=== PATIENT | female | born 1950 | race Caucasian/White ===

== ENCOUNTER 2017-02-27 17:26 | Inpatient (IN) | payer MEDICARE, MEDICAID ==
[2017-02-27 17:27] VITALS: BMI 42.4
[2017-02-27 18:09] LABS: BASO % 0.4 % (0.0-2.0); HEMATOCRIT 39.7 % (34.0-47.0); LYMPH % 15.5 % (20.0-40.0); MEAN CELL VOLUME 83.1 fL (81.0-99.0); MEAN CORPUSCULAR HEMOGLOBIN 26.3 pg (27.0-31.0); MEAN CORPUSCULAR HGB CONC 31.7 g/dL (33.0-37.0); MEAN PLATELET VOLUME 9.8 fL (7.2-11.7); MONO % 7.5 % (0.0-10.0); RED CELL DISTRIBUTION WIDTH 14.9 % (11.5-14.5)
--- NOTE | 2017-02-27 18:10 | C.PDOC ---
History Of Present Illness 66 y/o F c PMHx HTN, HLD, DM, CAD s/p CABG/stent, CVA 2011 (no residual deficit) , chronic back pain BIBEMS with altered mental status x 1 day. Patient did not show up for her pain doctor's visit today so son was notified. When he went to her home, he found her with altered mental status. She was speaking much less and appears drowsy so he called EMS. Son states that patient had a similar acute mental status change in 2011 and was diagnosed with CVA, found to have CAD and underwent CABG, after which she left the hospital without deficit. He states that at that time, she did complain of chest pain with her altered mental status. She currently denies any pain, shortness of breath, asymmetrical weakness. EKG transmitted to ED prior to patient arrival shows LBBB with no concordant ST changes. Son and daughter in law saw patient yesterday afternoon, approximately 26 hours ago. They note that the patient had a recent fall onto the shoulder which has since become back pain, which is why she has been seeing a pain physician. They state she has undergone multiple tests (MRI, etc). Time Seen by Provider: 02/27/17 17:41 Chief Complaint (Nursing): Altered Mental Status History Per: Family (Son) History/Exam Limitations: None Onset/Duration Of Symptoms: Unknown Past Medical History Reviewed: Historical Data, Nursing Documentation, Vital Signs Vital Signs: Last Vital Signs Temp 99.0 F 02/27/17 17:41 Pulse 102 H 02/27/17 17:41 Resp 18 02/27/17 17:41 BP 112/79 02/27/17 17:41 Pulse Ox 93 L 02/27/17 18:41 - Medical History PMH: Arthritis, CHF, COPD, HTN, Hypercholesterolemia, Sleep Apnea - [facility] Procedures TONSILLECTOMY (01/14/98) Family History: States: No Known Family Hx - Social History Hx Alcohol Use: No Hx Substance Use: No - Immunization History Hx Tetanus Toxoid Vaccination: No Hx Influenza Vaccination: No Hx Pneumococcal Vaccination: No Review Of Systems Except As Marked, All Systems Reviewed And Found Negative. Constitutional: Negative for: Fever Eyes: Negative for: Vision Change ENT: Negative for: Throat Pain Cardiovascular: Negative for: Chest Pain Respiratory: Negative for: Shortness of Breath Gastrointestinal: Negative for: Vomiting Genitourinary: Negative for: Dysuria Musculoskeletal: Positive for: Back Pain Skin: Negative for: Rash Neurological: Positive for: Altered Mental Status. Negative for: Weakness Physical Exam - Physical Exam Additional Physical Exam Comments: Constitutional: No acute distress. (+) Appears drowsy, responds to verbal stimuli. Head: Normocephalic. Atraumatic. Eyes: PERRL. ENT: Moist mucous membranes. Neck: Supple. Cardiovascular: Regular rate. Radial pulses 2+ bilaterally. Chest: No tenderness. Respiratory: Clear to auscultation bilaterally. GI: Soft. Nontender. Nondistended. Back: No CVA tenderness. Musculoskeletal: No tenderness or swelling of extremities. Skin: No rash. Neurologic: Alert, no focal deficit. (+) Motor strength equal bilaterally. Sensation to light touch intact bilaterally. Oriented x 3. ED Course And Treatment - Laboratory Results Result Diagrams: 02/27/17 18:05 02/27/17 19:41 O2 Sat by Pulse Oximetry: 93 (RA) Pulse Ox Interpretation: Normal - CT Scan/US CT - Head Other Rad Studies (CT/US): Read By Radiologist, Radiology Report Reviewed CT/US Interpretation: PROCEDURE: CT HEAD WITHOUT CONTRAST. HISTORY: altered mental status. COMPARISON: None available. TECHNIQUE: Axial computed tomography images were obtained through the head/brain without intravenous contrast. Radiation dose: Total exam DLP = 1076 mGy-cm. This CT exam was performed using one or more of the following dose reduction techniques: Automated exposure control, adjustment of the mA and/or kV according to patient size, and/or use of iterative reconstruction technique. FINDINGS: HEMORRHAGE: No intracranial hemorrhage. BRAIN: No evidence of mass effect or midline shift. Small it hypodensity at the left coronal radiata may represent old infarct versus dilated perivascular space. Mild atrophy and mild white matter changes suggestive but nonspecific for chronic microvascular ischemic disease. VENTRICLES: Unremarkable. No hydrocephalus. CALVARIUM: Unremarkable. PARANASAL SINUSES: Unremarkable as visualized. No significant inflammatory changes. MASTOID AIR CELLS: Unremarkable as visualized. No inflammatory changes. OTHER FINDINGS: Dilated sella turcica noted. IMPRESSION: No evidence of acute intracranial hemorrhage intracranial collection mass effect or midline shift. Mild atrophy and presumed mild chronic microvascular ischemic disease. Enlarged sella turcica. Medical Decision Making Medical Decision Making: IMPRESSION: Altered mental status, differential currently includes CVA, cardiac ischemia, sepsis, dehydration. Will check CT Head, cardiac enzymes, urine, CXR, labs. EKG does not meet criteria to activate CODE HEART at [facility] Last time well over 24 hours ago, does not meet criteria to activate CODE STROKE. EKG done on arrival, Sinus rhythm, 100 bpm, LBBB, no concordant ST changes. 1 previous EKG on record, also shows LBBB. PLAN: * CT - Head * CXR * CBC * CMP * Troponin * ABG * Urinalysis * Albuterol IH * Aspirin PO * Novolin IV * Sodium Carbonate IVP * Sodium Chloride IV Repeat Potassium not remarkable, hyperkalemia medications not given. Dr. Adrian accepts patient for admission for altered mental status and dehydration. Consult placed for Dr. Keller Neurology. Disposition - Disposition Disposition: HOSPITALIZED Disposition Time: 20:15 Condition: GUARDED - Clinical Impression Clinical Impression: Altered mental status, Dehydration - Scribe Statement The provider has reviewed the documentation as recorded by the Carmenibe Agnes Chawla Provider Attestation: All medical record entries made by the Carmenibdani were at my direction and personally dictated by me. I have reviewed the chart and agree that the record accurately reflects my personal performance of the history, physical exam, medical decision making, and the department course for this patient. I have also personally directed, reviewed, and agree with the discharge instructions and disposition.
[2017-02-27 18:17] LABS: INR 1.1
[2017-02-27 18:20] LABS: CHLORIDE 103 mmol/L (98-107)
[2017-02-27 18:21] LABS: SODIUM 138 mmol/L (132-148)
[2017-02-27 18:23] LABS: ALB/GLOB RATIO 1.1 (1.0-2.1); ALKALINE PHOSPHATASE 82 U/L (38-126); AST/SGOT 43 U/L (14-36); BILIRUBIN,TOTAL 1.2 mg/dL (0.2-1.3); CARBON DIOXIDE 21 mmol/L (22-30); GFR AFRICAN-AMERICAN 30; TOTAL PROTEIN 8.1 g/dL (6.3-8.3)
[2017-02-27 18:24] LABS: ALT/SGPT 27 U/L (9-52); BLOOD UREA NITROGEN 55 mg/dL (7-17); CALCIUM 10.3 mg/dl (8.6-10.4); GLUCOSE,RANDOM 262 mg/dL (65-105)
[2017-02-27 18:28] LABS: POTASSIUM 6.6 mmol/L (3.6-5.2)
[2017-02-27] MEDS ORDERED: Sodium Bicarbonate (8.4%) 50 Meq Syringe IVP ONE (18:29)
[2017-02-27] MEDS ORDERED: Albuterol-Ipratrop 3 mg / 0.5 (3 ml) UD IH STA (18:29)
[2017-02-27] MEDS ORDERED: Sodium Chloride 0.9% 1,000 ML IV STA (18:30)
[2017-02-27] MEDS ORDERED: (Novolin R) Insulin Human Regular 100 units/ml vial IV ONE (18:30)
--- NOTE | 2017-02-27 18:31 | CT ---
PROCEDURE: CT HEAD WITHOUT CONTRAST. HISTORY: altered mental status COMPARISON: None available. TECHNIQUE: Axial computed tomography images were obtained through the head/brain without intravenous contrast. Radiation dose: Total exam DLP = 1076 mGy-cm. This CT exam was performed using one or more of the following dose reduction techniques: Automated exposure control, adjustment of the mA and/or kV according to patient size, and/or use of iterative reconstruction technique. FINDINGS: HEMORRHAGE: No intracranial hemorrhage. BRAIN: No evidence of mass effect or midline shift. Small it hypodensity at the left coronal radiata may represent old infarct versus dilated perivascular space. Mild atrophy and mild white matter changes suggestive but nonspecific for chronic microvascular ischemic disease. VENTRICLES: Unremarkable. No hydrocephalus. CALVARIUM: Unremarkable. PARANASAL SINUSES: Unremarkable as visualized. No significant inflammatory changes. MASTOID AIR CELLS: Unremarkable as visualized. No inflammatory changes. OTHER FINDINGS: Dilated sella turcica noted IMPRESSION: No evidence of acute intracranial hemorrhage intracranial collection mass effect or midline shift. Mild atrophy and presumed mild chronic microvascular ischemic disease. Enlarged sella turcica.
--- NOTE | 2017-02-27 18:47 | RAD ---
HISTORY: r/o PNA COMPARISON: None available. TECHNIQUE: Chest, one view. FINDINGS: Examination limited by habitus, hypoinflation, and patient obliquity. LUNGS: Right hilar prominence. No focal consolidation. Please note that chest x-ray has limited sensitivity for the detection of pulmonary masses. PLEURA: No significant pleural effusion identified. No definite pneumothorax . CARDIOVASCULAR: Median sternotomy wires with evidence of CABG. Cardiomegaly may be exaggerated by hypo inflation and portable technique. OSSEOUS STRUCTURES: Degenerative changes. VISUALIZED UPPER ABDOMEN: Unremarkable. OTHER FINDINGS: None. IMPRESSION: Hypoinflation. Cardiomegaly which may be exaggerated by hypoinflation and portable technique. Right hilar prominence.
[2017-02-27 19:08] LABS: ABG ALLEN TEST POS; DRAW SITE RBA
[2017-02-27] MEDS ORDERED: Albuterol-Ipratrop 3 mg / 0.5 (3 ml) UD ONE ×2 (20:12→20:13)
[2017-02-27 20:55] LABS: RBC URINE 10 /hpf (0-3); URINE BACTERIA RARE (<OCC); URINE BILIRUBIN NEGATIVE (NEGATIVE); URINE BLOOD 1+ (NEGATIVE); URINE COLOR Yellow (YELLOW); URINE GLUCOSE (UA) NORMAL (Normal); URINE KETONE NEGATIVE (NEGATIVE); URINE LEUKOCYTE ESTERASE NEG Leu/uL (Negative); URINE PROTEIN NEGATIVE (NEGATIVE); URINE UROBILINOGEN NORMAL mg/dL (0.2-1.0); WBC URINE < 1 /hpf (0-5)
[2017-02-28 06:44] LABS: BASO % 0.3 % (0.0-2.0); EOS # 0.2 K/uL (0.0-0.7); EOS % 2.5 % (0.0-4.0); HEMATOCRIT 34.6 % (34.0-47.0); LYMPH # 2.1 K/uL (1.0-4.3); LYMPH % 24.5 % (20.0-40.0); MEAN CORPUSCULAR HEMOGLOBIN 27.4 pg (27.0-31.0); MEAN CORPUSCULAR HGB CONC 33.3 g/dL (33.0-37.0); MEAN PLATELET VOLUME 8.7 fL (7.2-11.7); MONO # 0.8 K/uL (0.0-0.8); RED CELL DISTRIBUTION WIDTH 15.1 % (11.5-14.5); WHITE BLOOD COUNT 8.5 K/uL (4.8-10.8)
[2017-02-28 06:59] LABS: BILIRUBIN,TOTAL 0.5 mg/dL (0.2-1.3); CALCIUM 9.5 mg/dl (8.6-10.4); POTASSIUM 4.8 mmol/L (3.6-5.2); TOTAL PROTEIN 6.2 g/dL (6.3-8.3)
[2017-02-28] MEDS: Sodium Chloride 0.45% 1,000 ML IV SCH ×2 (07:12→22:10)
[2017-02-28 07:15] LABS: ALB/GLOB RATIO 1.1 (1.0-2.1)
[2017-02-28 07:31] LABS: FREE T4 1.2 ng/dL (0.78-2.19)
[2017-02-28] MEDS ORDERED: Propofol 10 mg/ml Inj (20 ML) ONE (07:47)
[2017-02-28 08:10] LABS: THYROID STIMULATING HORMONE 0.18 mIU/L (0.46-4.68)
--- NOTE | 2017-02-28 10:08 | MRI ---
PROCEDURE: MRI BRAIN WITHOUT CONTRAST HISTORY: cva COMPARISON: Head CT without contrast 02/27/2017 TECHNIQUE: Multiplanar, multisequence MR images of the brain were obtained without intravenous contrast enhancement. FINDINGS: HEMORRHAGE: None DWI: No evidence of an acute or early subacute infarction. BRAIN PARENCHYMA: Limited dIffuse cerebral atrophy and chronic microangiopathy are reiterated the current examination. Chronic lacune is seen the left basal ganglia posteriorly as well as at the superior left periventricular white matter. There is no mass effect or suspicious extra-axial fluid collection identified. The sella appears empty but also appears somewhat expanded and may reflect a sella/suprasellar arachnoid cyst. VENTRICLES: Unremarkable. No hydrocephalus. CRANIUM: Unremarkable. ORBITS: Grossly unremarkable. PARANASAL SINUSES/MASTOIDS: A small right maxillary sinus polyp or cyst is appreciated PE VASCULAR SYSTEM: Skull base flow voids intact. OTHER FINDINGS: None. IMPRESSION: 1. No definite acute intracranial findings including brain infarction, as described above. 2. 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 3. Age related neuro degenerate changes are reiterated the current examination as compared to prior head CT 02/27/2017. 4. Left-sided chronic lacunes are identified as discussed above.
[2017-02-28] MEDS ORDERED: (Novolin R) Insulin Human Regular 100 units/ml vial ONE ×2 (10:17→12:36)
[2017-02-28] MEDS ORDERED: Albuterol-Ipratrop 3 mg / 0.5 (3 ml) UD ONE (10:19)
[2017-02-28] MEDS: (Novolog) Insulin Aspart, Recombinant 100 u/ml 10 ml vial SC SCH ×4 (10:26→21:43)
[2017-02-28] MEDS: Albuterol-Ipratrop 3 mg / 0.5 (3 ml) UD INH SCH ×2 (10:30→20:03)
--- NOTE | 2017-02-28 10:58 | CP.PCM.HP ---
History of Present Illness - History of Present Illness History of Present Illness: pt was found at home by her son with ams brought to er now well normal response Present on Admission - Present on Admission Any Indicators Present on Admission: Yes Review of Systems - Review of Systems Systems not reviewed;Unavailable: Acuity of Condition - Constitutional Constitutional: Fatigue - EENT Eyes: As Per HPI Ears: As Per HPI Nose/Mouth/Throat: As Per HPI - Breasts Breasts: As Per HPI - Cardiovascular Cardiovascular: Dyspnea on Exertion - Respiratory Respiratory: Dyspnea on Exertion - Gastrointestinal Gastrointestinal: Heartburn - Genitourinary Genitourinary: As Per HPI - Reproductive: Female Reproductive:Female: As Per HPI - Menstruation Menstruation: Post Menopausal - Musculoskeletal Musculoskeletal: Back Pain - Neurological Additional comments: was ams now normal - Psychiatric Psychiatric: As Per HPI - Endocrine Endocrine: Polydipsia, Polyphagia, Polyuria - Hematologic/Lymphatic Hematologic: As Per HPI Past Patient History - Past Social History Smoking Status: Never Smoked Chewing Tobacco Use: No Cigar Use: No Alcohol: None Home Situation {Lives}: Alone - CARDIAC Hx Cardiac Disorders: Yes Hx Congestive Heart Failure: Yes Hx Hypercholesterolemia: Yes Hx Hypertension: Yes Other/Comment: s/pCABGE Ysago - PULMONARY Hx Chronic Obstructive Pulmonary Disease (COPD): Yes Hx Sleep Apnea: Yes - NEUROLOGICAL HX Cerebrovascular Accident: Yes - ENDOCRINE/METABOLIC Hx Diabetes Mellitus Type 2: Yes Other/Comment: "PITUITARY ISSUES" - HEMATOLOGICAL/ONCOLOGICAL Hx Blood Transfusions: No Hx Blood Transfusion Reaction: No - MUSCULOSKELETAL/RHEUMATOLOGICAL Hx Arthritis: Yes - PSYCHIATRIC Hx Substance Use: No - SURGICAL HISTORY Hx Surgeries: Yes Hx Cardiac Catheterization: Yes Hx Gastric Bypass Surgery: Yes Hx Herniorrhaphy: Yes Hx Open Heart Surgery: Yes (QUAD BYPASS) Other/Comment: PITUITARY SX - ANESTHESIA Hx Anesthesia: Yes Hx Anesthesia Reactions: Yes (ITCHY) Hx Malignant Hyperthermia: No Meds Allergies/Adverse Reactions: Allergies Allergy/AdvReac Type Severity Reaction Status Date / Time Sulfa (Sulfonamide Allergy Intermediate RASH Verified 02/27/17 17:57 Antibiotics) Physical Exam - Constitutional Appears: Non-toxic - Head Exam Head Exam: NORMAL INSPECTION - Eye Exam Eye Exam: Normal appearance Pupil Exam: NORMAL ACCOMODATION - ENT Exam ENT Exam: Mucous Membranes Moist - Neck Exam Neck exam: Positive for: Full Rom - Respiratory Exam Respiratory Exam: Decreased Breath Sounds - Cardiovascular Exam Cardiovascular Exam: REGULAR RHYTHM - GI/Abdominal Exam GI & Abdominal Exam: Normal Bowel Sounds - Rectal Exam Rectal Exam: Hemorrhoids - Exam Exam: NORMAL INSPECTION - Extremities Exam Extremities exam: Positive for: pedal edema - Back Exam Back exam: CVA tenderness (R) - Neurological Exam Neurological exam: Oriented x3 - Psychiatric Exam Psychiatric exam: Normal Affect - Skin Skin Exam: Normal Color Results - Vital Signs Recent Vital Signs: Last Vital Signs Temp 99.0 F 02/27/17 17:41 Pulse 97 H 02/28/17 09:07 Resp 12 02/28/17 09:07 BP 115/72 02/28/17 09:07 Pulse Ox 98 02/28/17 09:07 - Labs Result Diagrams: 02/28/17 06:41 02/28/17 06:41 Labs: Laboratory Results - last 24 hr 02/28/17 02/28/17 02/28/17 06:41 06:41 06:41 WBC 8.5 RBC 4.22 Hgb 11.5 Hct 34.6 MCV 82.0 MCH 27.4 MCHC 33.3 RDW 15.1 H Plt Count 266 MPV 8.7 Neut % (Auto) 63.7 Lymph % (Auto) 24.5 [place] % (Auto) 9.0 Eos % (Auto) 2.5 Baso % (Auto) 0.3 Neut # 5.4 Lymph # 2.1 [place] # 0.8 Eos # 0.2 Baso # 0.0 Sodium 141 Potassium 4.8 Chloride 110 H Carbon Dioxide 20 L Anion Gap 16 BUN 55 H Creatinine 1.8 H Est GFR ( Amer) 34 Est GFR (Non-Af Amer) 28 POC Glucose (mg/dL) Random Glucose 128 H Calcium 9.5 Total Bilirubin 0.5 AST 20 ALT 23 Alkaline Phosphatase 66 Total Protein 6.2 L Albumin 3.3 L D Globulin 2.9 Albumin/Globulin Ratio 1.1 Free T4 1.20 TSH 3rd Generation 0.18 L 02/28/17 07:57 WBC RBC Hgb Hct MCV MCH MCHC RDW Plt Count MPV Neut % (Auto) Lymph % (Auto) [place] % (Auto) Eos % (Auto) Baso % (Auto) Neut # Lymph # [place] # Eos # Baso # Sodium Potassium Chloride Carbon Dioxide Anion Gap BUN Creatinine Est GFR ( Amer) Est GFR (Non-Af Amer) POC Glucose (mg/dL) 168 H Random Glucose Calcium Total Bilirubin AST ALT Alkaline Phosphatase Total Protein Albumin Globulin Albumin/Globulin Ratio Free T4 TSH 3rd Generation Assessment & Plan - Assessment and Plan (Free Text) Assessment: ac AMS IMPROVED DM HTN OBESITY S/P CABAGE 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
--- NOTE | 2017-02-28 11:37 | CARD ---
APPROVED REPORT EKG Measurement Heart [id number] <Conclusion> Sinus tachycardia Left axis deviation Nonspecific intraventricular block Inferior infarct, age undetermined Anterolateral infarct, age undetermined Abnormal ECG
[2017-02-28] MEDS: Enoxaparin 30 mg Syringe SC SCH (12:41)
--- NOTE | 2017-02-28 18:38 | CON ---
NEUROLOGY CONSULT DATE: 02/28/2017 CHIEF COMPLAINT: Altered mental status. HISTORY OF PRESENT ILLNESS: This is a 66-year-old woman with past medical history of hypertension, hyperlipidemia, diabetes type 2 uncontrolled, coronary artery disease status post CABG and stent, history of CVA in 2011 with no residual deficit, chronic back pain, on Lyrica and had history of epidural shots, history of sleep apnea with overweight, came in for altered mental status, found to be drowsy and slightly confused. Currently, she is at her baseline at this time with just some mild confusion at times. She follows simple commands, tells her history and articulates well. No speech difficulties, no focal weakness of the extremities, has evidence of diabetic neuropathy on neuro exam. MRI of the brain showed no acute intracranial abnormalities, just old left chronic lacunar infarcts. She came in with initially hyperkalemia with potassium 6.6, now it has normalized to 4.8 and has some mild renal insufficiency. Her blood sugar is currently high, which is 238. REVIEW OF SYSTEMS: A 14-point review of systems is negative except as in HPI. PAST MEDICAL HISTORY: History of hypertension, dyslipidemia, type 2 diabetes, coronary artery disease, status post CABG with stents, CVA in 2012, no residual deficits, chronic back pain, history of COPD, and sleep apnea. MEDICATIONS: Reviewed by nurse reconciliation sheet. SOCIAL HISTORY: No illicit drug use, smoking or EtOH abuse. FAMILY HISTORY: Noncontributory. ALLERGIES: SULFONAMIDES. PHYSICAL EXAMINATION: VITAL SIGNS: Temperature afebrile, pulse rate 97, blood pressure 100/67, respiratory rate of 12, oxygen saturation 99% via room air. GENERAL: The patient is sitting in bed, in no acute distress. HEENT: Atraumatic, normocephalic. PERRLA. Extraocular muscles are intact. NECK: Supple. No JVD. No adenopathy noted. Has Mallampati score of at least 4. HEART: S1 and S2. Normal rate and rhythm. No murmur, rubs, or gallops. ABDOMEN: Soft, nontender, nondistended. Bowel sounds are present. EXTREMITIES: No clubbing. No cyanosis. Peripheral pulses are 2+ felt bilaterally. NEUROLOGIC: The patient is alert and oriented to person, place, month, and year. Speech is fluent without any errors. Cranial nerves II through XII are intact. Has poor attention span. Slow thought process. Motor exam: Moves all extremities equally. No pronator drift seen. Sensory exam: Decreased light touch, pinprick up to the calves bilaterally. DTRs are 2+ throughout, 1 at the knees and ankles. Coordination: [id number] intact. Gait is deferred for now. LABORATORY DATA: Sodium is 141, potassium 4.8, chloride 110, carbon dioxide of 20, BUN 55, creatinine 1.8, random glucose 128. ASSESSMENT AND PLAN: This is a 66-year-old woman with history of hypertension, type 2 diabetes mellitus, sleep apnea, chronic obstructive pulmonary disease, obesity, coronary artery disease, status post coronary artery bypass graft and stent, history of cerebrovascular accident in 2011 with no residual deficit, hyperlipidemia, chronic back pain on Lyrica, who presented with confusion and drowsiness and was consulted for altered mental status. MRI of the brain showed no acute intracranial abnormalities, just some chronic lacunar infarcts in the left middle cerebral artery territory. She came in with hyperkalemia and low diastolic blood pressures and renal insufficiency. Altered mental status is secondary to underlying transient confusional state with metabolic derangements, superimposed underlying sleep apnea which can make her very drowsy. At this time, recommend: 1. Monitor electrolytes and correct accordingly. 2. Keep her blood sugars between 140 to 180 and advise a diabetic diet. 3. Aspirin 81 mg and Lipitor 20 mg p.o. daily for stroke prevention. 4. Get a Pulmonary consult with regards to history of sleep apnea since she is noncompliant with her CPAP machine and continue with current present medical management. Thank you for this consult. She is neurologically stable. Rodolfo Keller MD
[2017-03-01] MEDS: Albuterol-Ipratrop 3 mg / 0.5 (3 ml) UD INH SCH ×4 (01:11→19:13)
[2017-03-01] MEDS: (Novolog) Insulin Aspart, Recombinant 100 u/ml 10 ml vial SC SCH ×4 (08:25→21:27)
[2017-03-01] MEDS: Enoxaparin 30 mg Syringe SC SCH (09:42)
[2017-03-01] MEDS: Sodium Chloride 0.45% 1,000 ML IV SCH ×2 (12:29→16:55)
--- NOTE | 2017-03-01 17:10 | CP.PCM.PN ---
Subjective - Date & Time of Evaluation Date of Evaluation: 03/01/17 Time of Evaluation: 17:06 - Subjective Subjective: pt c/o of severe back pain unable to ambulate Objective - Vital Signs/Intake and Output Vital Signs (last 24 hours): Temp Pulse Resp BP Pulse Ox 97.9 F 92 H 20 107/69 96 03/01/17 15:10 03/01/17 15:10 03/01/17 15:10 03/01/17 15:10 03/01/17 15:10 Intake and Output: 03/01/17 03/01/17 06:59 18:59 Intake Total 200 880 Balance 200 880 - Medications Medications: Current Medications Albuterol/Ipratropium (Duoneb 3 Mg/0.5 Mg (3 Ml) Ud) 3 ml INH RQ6 [facility] Last Admin: 03/01/17 13:14 Dose: 3 ml Aspirin (Ecotrin) 325 mg PO DAILY [facility] Enoxaparin Sodium (Lovenox) 30 mg SC DAILY [facility] Last Admin: 03/01/17 09:42 Dose: 30 mg Famotidine (Pepcid) 20 mg PO DAILY [facility] Last Admin: 03/01/17 09:42 Dose: 20 mg Hydrocortisone (Anusol-Hc) 25 mg MS BID [facility] Last Admin: 03/01/17 09:42 Dose: 25 mg Insulin Aspart (Novolog) 0 unit SC ACHS [facility] PRN Reason: Protocol Last Admin: 03/01/17 12:28 Dose: 2 unit Tramadol HCl (Ultram) 50 mg PO TID [facility] Last Admin: 03/01/17 14:27 Dose: 50 mg - Labs Labs: 02/28/17 06:41 02/28/17 06:41 PT 12.7 SECONDS (9.7-12.2) H 02/27/17 18:05 INR 1.1 02/27/17 18:05 APTT 28 SECONDS (21-34) 02/27/17 18:05 - Constitutional Appears: Non-toxic - Head Exam Head Exam: NORMAL INSPECTION - Eye Exam Eye Exam: Normal appearance Pupil Exam: NORMAL ACCOMODATION - ENT Exam ENT Exam: Mucous Membranes Moist - Neck Exam Neck Exam: Full ROM - Respiratory Exam Respiratory Exam: NORMAL BREATHING PATTERN - Cardiovascular Exam Cardiovascular Exam: REGULAR RHYTHM - GI/Abdominal Exam GI & Abdominal Exam: Normal Bowel Sounds - Rectal Exam Rectal Exam: NORMAL INSPECTION - Exam Exam: NORMAL INSPECTION External exam: NORMAL EXTERNAL EXAM - Extremities Exam Extremities Exam: Full ROM - Back Exam Back Exam: CVA tenderness (L), NORMAL INSPECTION - Neurological Exam Neurological Exam: Alert, Oriented x3 - Psychiatric Exam Psychiatric exam: Normal Mood - Skin Skin Exam: Normal Color Assessment and Plan - Assessment and Plan (Free Text) Assessment: s/p ams s/p old cva no residual back pain difficulty ambulatin htn controled Plan: as per orders
--- NOTE | 2017-03-01 17:12 | CP.PCM.CON ---
History of Present Illness - History of Present Illness History of Present Illness: Pain Management Consult Patient is 66F with PMHx of HTN, hyperlipidemia, CAD s/p CABGx4 and stents, CVA (2011), WILFRID and chronic back pain initially admitted with altered mental status. Currently patient at baseline mental status AAOX3. As per patient's son she had a fall 3 months ago which left her with cervical and lumbar pain. Subsequently received an epidural injection but did not have any pain relieve. She reports pain as sharp in the lower back, constant, non radiating and 10/10 intensity. Currently she is receiving tramadol which effectively alleviates her pain however she reports being very sleepy and tired. Patient's son expressed wanting to switch pain management doctor given the long commute to the clinic. Her home medication Lyrica only slight decreases her pain. Recommendations: Case discussed with Pain management Dr. Uribe -Switch tramadol to Ultracet Q8H PRN given her sleepiness -For discharge planning patient may go back on home medication Lyrica 75mg BID and can be titrate up to 100mg Q8H -Patient may call [facility] pain management clinic for further care Past Patient History - Past Medical History & Family History Past Medical History?: Yes - Past Social History Smoking Status: Never Smoked - CARDIAC Hx Cardiac Disorders: Yes (CAD, CABG) Hx Congestive Heart Failure: Yes Hx Hypercholesterolemia: Yes Hx Hypertension: Yes - PULMONARY Hx Chronic Obstructive Pulmonary Disease (COPD): Yes - NEUROLOGICAL HX Cerebrovascular Accident: Yes - ENDOCRINE/METABOLIC Hx Diabetes Mellitus Type 2: Yes - HEMATOLOGICAL/ONCOLOGICAL Hx Blood Transfusions: No Hx Blood Transfusion Reaction: No - MUSCULOSKELETAL/RHEUMATOLOGICAL Hx Arthritis: Yes - GASTROINTESTINAL Other/Comment: Gastric sleeve - PSYCHIATRIC Hx Substance Use: No - SURGICAL HISTORY Hx Surgeries: Yes Hx Cardiac Catheterization: Yes Hx Gastric Bypass Surgery: Yes (Gastric sleeve) Hx Herniorrhaphy: Yes Hx Open Heart Surgery: Yes (QUAD BYPASS) Other/Comment: PITUITARY SX - ANESTHESIA Hx Anesthesia: Yes Hx Anesthesia Reactions: Yes (ITCHiness) Hx Malignant Hyperthermia: No Meds Allergies/Adverse Reactions: Allergies Allergy/AdvReac Type Severity Reaction Status Date / Time Sulfa (Sulfonamide Allergy Intermediate RASH Verified 02/27/17 17:57 Antibiotics) - Medications Medications: Current Medications Albuterol/Ipratropium (Duoneb 3 Mg/0.5 Mg (3 Ml) Ud) 3 ml INH RQ6 [facility] Last Admin: 03/01/17 13:14 Dose: 3 ml Enoxaparin Sodium (Lovenox) 30 mg SC DAILY [facility] Last Admin: 03/01/17 09:42 Dose: 30 mg Famotidine (Pepcid) 20 mg PO DAILY [facility] Last Admin: 03/01/17 09:42 Dose: 20 mg Hydrocortisone (Anusol-Hc) 25 mg NC BID [facility] Last Admin: 03/01/17 09:42 Dose: 25 mg Insulin Aspart (Novolog) 0 unit SC ACHS [facility] PRN Reason: Protocol Last Admin: 03/01/17 12:28 Dose: 2 unit Tramadol HCl (Ultram) 50 mg PO TID [facility] Last Admin: 03/01/17 14:27 Dose: 50 mg Results - Vital Signs Recent Vital Signs: Last Vital Signs Temp 97.9 F 03/01/17 15:10 Pulse 92 H 03/01/17 15:10 Resp 20 03/01/17 15:10 BP 107/69 03/01/17 15:10 Pulse Ox 96 03/01/17 15:10 - Labs Result Diagrams: 02/28/17 06:41 02/28/17 06:41 Labs: Laboratory Results - last 24 hr 02/28/17 02/28/17 03/01/17 17:02 21:37 06:19 POC Glucose (mg/dL) 233 H 322 H 200 H 03/01/17 11:57 POC Glucose (mg/dL) 280 H
[2017-03-01] MEDS: Aspirin 325 mg EC Tablets PO SCH (17:45)
[2017-03-02] MEDS: Albuterol-Ipratrop 3 mg / 0.5 (3 ml) UD INH SCH ×4 (01:08→19:18)
[2017-03-02] MEDS: (Novolog) Insulin Aspart, Recombinant 100 u/ml 10 ml vial SC SCH ×4 (07:57→21:31)
[2017-03-02] MEDS: Aspirin 325 mg EC Tablets PO SCH (10:24)
[2017-03-02] MEDS: Enoxaparin 30 mg Syringe SC SCH (10:26)
--- NOTE | 2017-03-02 10:33 | RAD ---
PROCEDURE: Radiographs of the Lumbar Spine. HISTORY: back pain COMPARISON: No prior. FINDINGS: BONES: Normal alignment. No listhesis. No fracture. Diffuse thoraco lumbar spondylosis. DISC SPACES: Diffuse disc space narrowing with vacuum disc phenomena at every lumbar level - exception: L5-S1 sparing OTHER FINDINGS: Atherosclerotic arterial vascular calcification descending abdominal aorta and branches. . Probable gallstones. IMPRESSION: Degenerative lumbar spondylosis with degenerative disc disease No fracture or subluxation.
--- NOTE | 2017-03-02 10:37 | RAD ---
HISTORY: back pain COMPARISON: No prior. FINDINGS: BONES: Alignment maintained. No fracture. Diffuse thoracic spondylosis. Generalized osteopenia DISC SPACES: Diffuse minimal thoracic joint space narrowing. SOFT TISSUES: Normal. OTHER FINDINGS: Status post sternotomy with discontinuous inferior sternal wires. Coronary artery bypass clips IMPRESSION: No fracture or lytic lesion. Osteopenia. Mild-moderate diffuse thoracic spondylosis and minimal diffuse thoracic intervertebral disc space narrowing
[2017-03-02 14:26] LABS: BASO % 0.3 % (0.0-2.0); EOS # 0.5 K/uL (0.0-0.7); EOS % 5.4 % (0.0-4.0); HEMATOCRIT 31.7 % (34.0-47.0); LYMPH # 1.6 K/uL (1.0-4.3); LYMPH % 17.7 % (20.0-40.0); MEAN CELL VOLUME 83.5 fL (81.0-99.0); MEAN CORPUSCULAR HEMOGLOBIN 27.2 pg (27.0-31.0); MEAN CORPUSCULAR HGB CONC 32.6 g/dL (33.0-37.0); MEAN PLATELET VOLUME 9.3 fL (7.2-11.7); MONO # 0.7 K/uL (0.0-0.8); MONO % 8.3 % (0.0-10.0); RED CELL DISTRIBUTION WIDTH 14.6 % (11.5-14.5)
[2017-03-02 14:39] LABS: POTASSIUM 4.5 mmol/L (3.6-5.2)
[2017-03-02 14:43] LABS: CALCIUM 9.9 mg/dl (8.6-10.4)
--- NOTE | 2017-03-02 20:28 | CP.PCM.PN ---
Subjective - Date & Time of Evaluation Date of Evaluation: 03/02/17 Time of Evaluation: 20:24 - Subjective Subjective: pt in pain back hurts unable to walk oriented now Objective - Vital Signs/Intake and Output Vital Signs (last 24 hours): Temp Pulse Resp BP Pulse Ox 98.1 F 100 H 20 117/81 95 03/02/17 15:45 03/02/17 16:00 03/02/17 15:45 03/02/17 15:45 03/02/17 15:45 Intake and Output: 03/02/17 03/03/17 18:59 06:59 Intake Total 520 Balance 520 - Medications Medications: Current Medications Albuterol/Ipratropium (Duoneb 3 Mg/0.5 Mg (3 Ml) Ud) 3 ml INH RQ6 [facility] Last Admin: 03/02/17 19:18 Dose: 3 ml Aspirin (Ecotrin) 325 mg PO DAILY [facility] Last Admin: 03/02/17 10:24 Dose: 325 mg Enoxaparin Sodium (Lovenox) 30 mg SC DAILY [facility] Last Admin: 03/02/17 10:26 Dose: 30 mg Famotidine (Pepcid) 20 mg PO DAILY [facility] Last Admin: 03/02/17 10:23 Dose: 20 mg Hydrocortisone (Anusol-Hc) 25 mg [place] BID [facility] Last Admin: 03/02/17 17:54 Dose: Not Given Insulin Aspart (Novolog) 0 unit SC ACHS [facility] PRN Reason: Protocol Last Admin: 03/02/17 17:38 Dose: 4 unit Insulin Detemir (Levemir) 10 unit SC HS [facility] Metoprolol Tartrate (Lopressor) 100 mg PO QPM [facility] Last Admin: 03/02/17 17:39 Dose: 100 mg Torsemide (Demadex) 40 mg PO DAILY [facility] Last Admin: 03/02/17 17:39 Dose: 40 mg Tramadol HCl (Ultram) 50 mg PO TID [facility] Last Admin: 03/02/17 17:39 Dose: 50 mg - Labs Labs: 03/02/17 14:20 03/02/17 14:20 PT 12.7 SECONDS (9.7-12.2) H 02/27/17 18:05 INR 1.1 02/27/17 18:05 APTT 28 SECONDS (21-34) 02/27/17 18:05 - Constitutional Appears: Non-toxic - Head Exam Head Exam: NORMAL INSPECTION - Eye Exam Eye Exam: Normal appearance Pupil Exam: NORMAL ACCOMODATION - ENT Exam ENT Exam: Mucous Membranes Moist - Neck Exam Neck Exam: Full ROM - Respiratory Exam Respiratory Exam: Clear to Ausculation Bilateral - Cardiovascular Exam Cardiovascular Exam: REGULAR RHYTHM - GI/Abdominal Exam GI & Abdominal Exam: Normal Bowel Sounds - Rectal Exam Rectal Exam: NORMAL INSPECTION - Exam Exam: NORMAL INSPECTION External exam: NORMAL EXTERNAL EXAM - Extremities Exam Extremities Exam: Normal Inspection - Back Exam Back Exam: NORMAL INSPECTION - Neurological Exam Neurological Exam: Normal Gait - Psychiatric Exam Psychiatric exam: Normal Mood - Skin Skin Exam: Normal Color Assessment and Plan - Assessment and Plan (Free Text) Assessment: back pain degenerative disc disease dmid uncontroled dificulty ambulating obesity s/p tia Plan: add insulin ritchie
[2017-03-02] MEDS ORDERED: Insulin Detemir 100 units/ml Vial (Levemir) SC SCH (22:00)
[2017-03-03] MEDS: Albuterol-Ipratrop 3 mg / 0.5 (3 ml) UD INH SCH ×3 (01:51→13:12)
[2017-03-03] MEDS: (Novolog) Insulin Aspart, Recombinant 100 u/ml 10 ml vial SC SCH ×2 (08:32→12:28)
[2017-03-03] MEDS: Enoxaparin 30 mg Syringe SC SCH (09:16)
[2017-03-03] MEDS: Aspirin 325 mg EC Tablets PO SCH (09:17)
--- NOTE | 2017-03-03 11:56 | CP.PCM.PN ---
Subjective - Date & Time of Evaluation Date of Evaluation: 03/03/17 Time of Evaluation: 11:54 - Subjective Subjective: pt in bed was able with help to go to bath room more oriented but slow ansers Objective - Vital Signs/Intake and Output Vital Signs (last 24 hours): Temp Pulse Resp BP Pulse Ox 98.1 F 91 H 18 153/87 H 96 03/03/17 07:35 03/03/17 07:35 03/03/17 07:35 03/03/17 07:35 03/03/17 07:35 Intake and Output: 03/03/17 03/03/17 06:59 18:59 Output Total 800 Balance -800 - Medications Medications: Current Medications Albuterol/Ipratropium (Duoneb 3 Mg/0.5 Mg (3 Ml) Ud) 3 ml INH RQ6 [facility] Last Admin: 03/03/17 08:02 Dose: 3 ml Aspirin (Ecotrin) 325 mg PO DAILY [facility] Last Admin: 03/03/17 09:17 Dose: 325 mg Enoxaparin Sodium (Lovenox) 30 mg SC DAILY [facility] Last Admin: 03/03/17 09:16 Dose: 30 mg Famotidine (Pepcid) 20 mg PO DAILY [facility] Last Admin: 03/03/17 09:33 Dose: 20 mg Hydrocortisone (Anusol-Hc) 25 mg [place] BID [facility] Last Admin: 03/03/17 09:17 Dose: 25 mg Insulin Aspart (Novolog) 0 unit SC ACHS [facility] PRN Reason: Protocol Last Admin: 03/03/17 08:32 Dose: 3 unit Insulin Detemir (Levemir) 14 unit SC DAILY [facility] Metoprolol Tartrate (Lopressor) 100 mg PO QPM [facility] Last Admin: 03/02/17 17:39 Dose: 100 mg Torsemide (Demadex) 40 mg PO DAILY [facility] Last Admin: 03/03/17 09:17 Dose: 40 mg Tramadol HCl (Ultram) 50 mg PO TID [facility] Last Admin: 03/03/17 09:17 Dose: 50 mg - Labs Labs: 03/02/17 14:20 03/02/17 14:20 PT 12.7 SECONDS (9.7-12.2) H 02/27/17 18:05 INR 1.1 02/27/17 18:05 APTT 28 SECONDS (21-34) 02/27/17 18:05 - Constitutional Appears: Non-toxic - Head Exam Head Exam: NORMAL INSPECTION - Eye Exam Eye Exam: Normal appearance Pupil Exam: NORMAL ACCOMODATION - ENT Exam ENT Exam: Mucous Membranes Moist - Neck Exam Neck Exam: Full ROM - Respiratory Exam Respiratory Exam: Decreased Breath Sounds - Cardiovascular Exam Cardiovascular Exam: REGULAR RHYTHM - GI/Abdominal Exam GI & Abdominal Exam: Normal Bowel Sounds - Rectal Exam Rectal Exam: NORMAL INSPECTION - Exam Exam: NORMAL INSPECTION External exam: NORMAL EXTERNAL EXAM - Extremities Exam Extremities Exam: Normal Inspection Assessment and Plan - Assessment and Plan (Free Text) Assessment: back pain dificulty ambulation Plan: psyc evaluation then d/c plann
[2017-03-03] MEDS ORDERED: Insulin Detemir 100 units/ml Vial (Levemir) SC SCH (12:00)
[2017-03-03] MEDS ORDERED: Tramadol 25 mg PO PRN (12:05)
--- NOTE | 2017-03-03 12:40 | CARD ---
APPROVED REPORT EKG Measurement Heart [id number] <Conclusion> Sinus rhythm with 1st degree AV block Left axis deviation Left bundle branch block Abnormal ECG
--- NOTE | 2017-03-03 13:03 | PCM.PSYCH ---
Initial Psychiatric Evaluation - Initial Psychiatric Evaluation Type of Admission: Voluntary Legal Status: Capacity History of Present Illness and Precipitating Events: Patient is 66 year old female with pmh of DM, HTN, obesity, CABG, CVA (2011), chronic back pain who presents for altered mental status. Psychiatry was consulted to evaluate for depression. Patient is difficult to elicit a history from. She is very drowsy. She answers questions after much encouragement to answer and time. She is aware what year it is and where she is but is unsure of the month. She is currently having a lot of back pain and is worried about being able to walk. She wants rehab so that she is fully able to ambulate. History and ROS are limited due to her slow responses and some lack of responses. Current Medications: Active Medications Generic Name Dose Route Start Last Admin Trade Name Freq PRN Reason Stop Dose Admin Albuterol/Ipratropium 3 ml 02/28/17 08:00 03/03/17 08:02 Duoneb 3 Mg/0.5 Mg (3 Ml) Ud INH 3 ml RQ6 [facility] Administration Aspirin 325 mg 03/01/17 17:15 03/03/17 09:17 Ecotrin PO 325 mg DAILY [facility] Administration Enoxaparin Sodium 30 mg 02/28/17 11:45 03/03/17 09:16 Lovenox SC 30 mg DAILY [facility] Administration Famotidine 20 mg 02/28/17 11:00 03/03/17 09:33 Pepcid PO 20 mg DAILY [facility] Administration Hydrocortisone 25 mg 02/28/17 11:00 03/03/17 09:17 Anusol-Hc TN 25 mg BID [facility] Administration Insulin Aspart 0 unit 02/28/17 07:30 03/03/17 12:28 Novolog SC 3 unit ACHS [facility] Administration Protocol Insulin Detemir 14 unit 03/03/17 12:00 03/03/17 12:28 Levemir SC 14 unit Q24H [facility] Administration Metoprolol Tartrate 100 mg 03/02/17 18:00 03/02/17 17:39 Lopressor PO 100 mg QPM [facility] Administration Torsemide 40 mg 03/02/17 18:00 03/03/17 09:17 Demadex PO 40 mg DAILY [facility] Administration Tramadol HCl 25 mg 03/03/17 12:05 Ultram PO TID PRN Pain, moderate (4-7) Past Psychiatric History - Past Psychiatric History Previous Treatment History: None Pertinent Medical Hx (Current Medical&Sleep Prob, Allergies): Allergies Allergy/AdvReac Type Severity Reaction Status Date / Time Sulfa (Sulfonamide Allergy Intermediate RASH Verified 02/27/17 17:57 Antibiotics) Aspirin [Aspirin EC] 81 mg PO DAILY 03/09/16 Atorvastatin [Lipitor] 20 mg PO QPM 03/09/16 Metoprolol Tartrate [Lopressor] 100 mg PO QPM 03/09/16 Albuterol/Ipratropium [Duoneb 3 mg/0.5 mg (3 ml) UD] 3 ml INH RQ6 03/03/17 Famotidine [Pepcid] 20 mg PO DAILY tab 03/03/17 Hydrocortisone [Anusol-Hc] 25 mg [place] BID sup 03/03/17 Insulin Aspart, Recombinant [Novolog] 0 unit SC ACHS unit 03/03/17 Insulin Detemir [Levemir] 14 unit SC DAILY unit 03/03/17 Torsemide [Demadex] 40 mg PO DAILY tab 03/03/17 traMADol [Ultram] 25 mg PO TID PRN #15 tab 03/03/17 Review of Systems - Psychiatric Psychiatric: Confusion, Difficulty Concentrating, Memory Loss. absent: Homicidal Ideation, Suicidal Ideation Mental Status Examination - Personal Presentation Personal Presentation: Looks stated age - Affect Affect: Constricted - Motor Activity Motor Activity: Calm - Reliability in Providing Information Reliability in Providing Information: Poor, due to cognitve impairment - Speech Speech: Other Additional comments: quiet, one word answers, takes a long time to respond - Mood Mood: Neutral - Formal Thought Process Formal Thought Process: No Impairment - Obsessions/Compulsions Obsessions: No Compulsions: No - Cognitive Functions Orientation: Person, Place Sensorium: Drowsy Estimate of Intelligence: Average Judgement: Imparied, as evidence by: Lack of insight into illness Memory: Remote impaired as evidenced by: Inability to recall historical events - Risk Risk: Diminished functioning - Strength & Assets Inventory Strength & Assets Inventory: Family support DSM 5 DX - DSM 5 DSM 5 Diagnosis: Delirium - Recommended/Plan of Treatment Treatment Recommendations and Plan of Treatment: Delirium monitor Psych will sign off, please re-consult if needed 32min Prognosis: fair, with medications
[2017-03-03 15:48] VITALS: BP 144/82; PULSE 105; RESP 20; TEMP 97.5; O2SAT 95
--- NOTE | 2017-03-03 17:19 | PCM.HF ---
Heart Failure Core Measure - Heart Failure Left Ventricular Function to be assessed after discharge: Yes FAUSTINA Inhibitor Prescribed: No Contraindication/Reason for not providing: renal insufficiency Beta-Gaston Prescribed: Metoprolol Succinate Angiotensin II Receptor Gaston Prescribed: No Contraindication/Reason for not providing: renalinsufficiency AnticoagulationTherapy for Atrial Fibrillation/Atrialflutter: No Contraindication/Reason for not providing: no afib Aldosterone Antagonist Prescribed: No Contraindication/Reason for not providing: renal dysfunction Hydralazine Nitrate Prescribed: No Contraindication/Reason for not providing: to be assesed for EF Contraindication/Reason for not providing: to assessed by cardiologyst Cardiac Resynchronization Therapy Prescribed: No Contraindication/Reason for not providing: not indicated - Follow up Will be discharged to: Residential Facility ([facility])
--- NOTE | 2017-03-06 09:40 | VASCLAB ---
PROCEDURE: HISTORY: Altered Mental Status, Old Infarction COMPARISON: No previous vascular study. TECHNIQUE: Grayscale and duplex Doppler evaluation of the cervical carotid and vertebral arteries were performed. The common carotid, carotid bifurcations and cervical Internal Carotid Artery (ICA) and proximal External Carotid Artery (ECA) were evaluated. The vertebral arteries were evaluated for gross patency and flow direction. Report prepared by MADY Cowart FINDINGS: RIGHT CAROTID ARTERIES: 1. Common Carotid Artery: No significant focal plaque formation of the right common carotid artery. Maximum Peak Systolic velocity: 103 cm/sec: End-diastolic velocity 10 cm/sec. 2. Carotid Bifurcation: plaque formation. Maximum Peak Systolic velocity: 53 cm/sec: End-diastolic velocity 13 cm/sec. 3. Internal Carotid Artery: Plaque description: 3.1. Proximal Segment: Peak systolic velocity 64 cm/sec: End-diastolic velocity 18 cm/sec - % stenosis 0-15% 3.2. Middle Segment: Peak systolic velocity 92 cm/sec: End-diastolic velocity 27 cm/sec - % stenosis 0-15% 3.3. Distal Segment: Peak systolic velocity 64 cm/sec: End-diastolic velocity 23 cm/sec - % stenosis 0-15% 4. External Carotid Artery: No significant focal plaque formation. Peak systolic velocity 147 cm/sec 5. ICA/CCA Ratio: 1.1 LEFT CAROTID ARTERIES: 1. Common Carotid Artery: No significant focal plaque formation of the left common carotid artery. Maximum Peak Systolic velocity: 119 cm/sec: End-diastolic velocity 42 cm/sec. 2. Carotid Bifurcation: Calcific plaque formation. Maximum Peak Systolic velocity: 60 cm/sec: End-diastolic velocity 22 cm/sec. 3. Internal Carotid Artery: Plaque description: Calcific 3.1. Proximal Segment: Peak systolic velocity 78 cm/sec: End-diastolic velocity 20 cm/sec - % stenosis 0-15% 3.2. Middle Segment: Peak systolic velocity 68 cm/sec: End-diastolic velocity 29 cm/sec - % stenosis 0-15% 3.3. Distal Segment: Peak systolic velocity 117 cm/sec: End-diastolic velocity 25 cm/sec - % stenosis 0-15% 4. External Carotid Artery: No significant focal plaque formation. Peak systolic velocity 77 cm/sec 5. ICA/CCA Ratio: 1.4 VERTEBRAL ARTERIES: 1. Right Vertebral Artery: The right vertebral artery flow direction is antegrade. 2. Left Vertebral Artery: The left vertebral artery flow direction is antegrade. OTHER FINDINGS: 1. Unable to obtain brachial pressures. 2. Technically difficult examination. Patient's breathing patterns and inability to remain awake affect image quality. IMPRESSION: RIGHT: Duplex scan does not suggest hemodynamically significant stenosis of the right extracranial carotid arteries. Tortuosity noted of the right ICA. LEFT: Duplex scan does not suggest hemodynamically significant stenosis of the left extracranial carotid arteries.
--- NOTE | 2017-03-08 07:06 | DS ---
HISTORY OF PRESENT ILLNESS AND HOSPITAL COURSE: She is 66-year-old. She was found altered mental status at home and she was brought in to the emergency room by her son and she was by the emergency room and she has a history of hypertension, diabetes and coronary artery disease, status post CABG. She had a stroke in 2011, but there was no residual effect. She has chronic back pain and she was very slow in response when she came in, appeared drowsy and she has been complaining of back pain. Son and [id number] saw her the day before admission and she had a recent fall injuring her shoulder, but her back became hurting more. At the time of admission, her blood pressure was 112/79, pulse oximetry was 93%, her temperature was 99, her pulse was 102. Her white count was 13. Her CAT scan of the head was done at the time and there was no evidence of acute intracranial hemorrhage or any collection of a mass effect. She had mild atrophy and chronic microvascular ischemic disease and she was admitted and observed in the hospital and seen in the hospital, she was little bit dehydrated. She became more oriented and awake, but she was complaining of a lot of back pain and her labs show her hemoglobin 10.3 and hematocrit 31. She has 47 BUN and creatinine 1.4 and her sugar 341. She was given fluid hydration and the sugar was monitored to be controlled and she was given pain medication, tramadol for the patient. She had psychiatric evaluation by who has evaluated her and he felt that she has delirium and there was no recommendation for any medications to be given, so the patient was improving and stable and she was not able to walk because of her back pain, so we arranged transfer to subacute rehabilitation. FINAL DIAGNOSES: Acute altered mental status, small-vessel disease of the brain and obesity, diabetes, anemia. She has to continue all her medications in the [facility] for the subacute and she is to be followed as an outpatient by . Vanesa Adrian MD
== END 2017-03-03 17:07 | DRG 72 ==
LOC: C.ER 17:26 → C.9E 22:08 → C.6T 02-28 13:30
PROVIDERS: ADMIT Internal Medicine; ATTEND Internal Medicine
DX: G93.89 Other specified disorders of brain (principal); I50.9 Heart failure, unspecified; E11.40 Type 2 diabetes mellitus with diabetic neuropathy, unspecified; I11.0 Hypertensive heart disease with heart failure; E87.5 Hyperkalemia; E86.0 Dehydration; J44.9 Chronic obstructive pulmonary disease, unspecified; Z95.1 Presence of aortocoronary bypass graft; E78.5 Hyperlipidemia, unspecified; I25.10 Atherosclerotic heart disease of native coronary artery without angina pectoris; Z86.73 Personal history of transient ischemic attack (TIA), and cerebral infarction without residual deficits; M19.90 Unspecified osteoarthritis, unspecified site; G47.30 Sleep apnea, unspecified; Z79.4 Long term (current) use of insulin; E66.9 Obesity, unspecified; Z91.19 Patient's noncompliance with other medical treatment and regimen; M47.9 Spondylosis, unspecified; E11.65 Type 2 diabetes mellitus with hyperglycemia; N28.9 Disorder of kidney and ureter, unspecified

== ENCOUNTER 2017-03-04 21:04 | Inpatient (IN) | payer MEDICARE, MEDICAID ==
[2017-03-04 21:04] VITALS: BMI 42.4
--- NOTE | 2017-03-04 21:43 | C.PDOC ---
History Of Present Illness 66 y/o female who was admitted 5 days ago for questionable AMS. She had suffered a recent fall and was supposed to go to pain management clinic, but never went. Also admitted for concern of stroke, which was not the case. While inpatient she had a psych evaluation for depression and was managed for dehydration. Patient was discharged from the hospital yesterday, and was transferred to a rehab for pain management and was transferred from there today. Earlier today the patient had complained of chest pain while at the rehab , and labs were ordered. Tonight labs revealed renal insufficiency, elevated Calcium, and they referred her here for evaluation of chest pain with possible dehydration. On arrival she has no complaints. Does not recall having chest pain earlier today. No shortness of breath or abdominal pain. Of note, patient was recently started on Lyrica and Ultracet. PMD: Arabella Shultz Time Seen by Provider: 03/04/17 21:15 Chief Complaint (Nursing): Medical Clearance History Per: Patient, Other (Rehab employees) Onset/Duration Of Symptoms: Unknown Current Symptoms Are (Timing): Gone Past Medical History Reviewed: Historical Data, Nursing Documentation, Vital Signs Vital Signs: Last Vital Signs Temp 97.7 F 03/04/17 21:20 Pulse 86 03/04/17 21:20 Resp 16 03/04/17 21:20 BP 152/93 H 03/04/17 21:20 Pulse Ox 95 03/04/17 22:41 - Medical History PMH: Arthritis, CHF, COPD, HTN, Hypercholesterolemia, Sleep Apnea Surgical History: CABG Denies: Pacemaker Other Surgeries: Hernia repair, Pituitary surgery - [facility] Procedures TONSILLECTOMY (01/14/98) Family History: States: Unknown Family Hx - Social History Hx Tobacco Use: No Hx Alcohol Use: No Hx Substance Use: No - Immunization History Hx Tetanus Toxoid Vaccination: No Hx Influenza Vaccination: No Hx Pneumococcal Vaccination: No Review Of Systems Except As Marked, All Systems Reviewed And Found Negative. Cardiovascular: Positive for: Chest Pain (earlier today per rehab center) Respiratory: Negative for: Shortness of Breath Gastrointestinal: Negative for: Abdominal Pain Physical Exam - Physical Exam Appears: Non-toxic, No Acute Distress, Other (sleepy but arousable ) Skin: Normal Color, Warm, Dry Head: Atraumatic, Normacephalic Eye(s): bilateral: Normal Inspection, PERRL, EOMI Oral Mucosa: Dry Neck: Normal ROM, Supple Chest: Symmetrical Cardiovascular: Rhythm Regular, No Murmur Respiratory: Normal Breath Sounds, No Accessory Muscle Use Gastrointestinal/Abdominal: Normal Exam, Bowel Sounds, Soft, No Tenderness Back: Normal Inspection, No Vertebral Tenderness Extremity: Bilateral: Atraumatic, Normal Color And Temperature, Normal ROM Neurological/Psych: Normal Speech, Normal Cognition, Normal Motor, Normal Sensation Gait: Steady ED Course And Treatment - Laboratory Results Result Diagrams: 03/04/17 21:58 03/04/17 21:58 Lab Interpretation: Abnormal (BUN 51, Cr 1.5, Ca normal 10, urine +WBC 61 with many bacteria) ECG: Interpreted By Me ECG Rhythm: L BBB O2 Sat by Pulse Oximetry: 95 (RA) Pulse Ox Interpretation: Normal - Physician Consult Information Time Consulting Physician Contacted: 22:39 Physician Contacted: John Dorado Outcome Of Conversation: He agrees to manage the patient with UTI and dehydration. Medical Decision Making Medical Decision Making: Time: 21:33 Plan: --CMP --Troponin I --CBC --EKG --Urinalysis --Pending reevaluation and disposition Disposition - Disposition Disposition: HOSPITALIZED Disposition Time: 22:40 Condition: FAIR - POA Present On Arrival: None - Clinical Impression Clinical Impression: Dehydration, Altered mental status, UTI (urinary tract infection) - Scribe Statement The provider has reviewed the documentation as recorded by the Scribe Anca El All medical record entries made by the Scribe were at my direction and personally dictated by me. I have reviewed the chart and agree that the record accurately reflects my personal performance of the history, physical exam, medical decision making, and the department course for this patient. I have also personally directed, reviewed, and agree with the discharge instructions and disposition.
[2017-03-04 22:00] LABS: BASO # 0.1 K/uL (0.0-0.2); BASO % 0.6 % (0.0-2.0); EOS # 0.5 K/uL (0.0-0.7); EOS % 4.3 % (0.0-4.0); HEMATOCRIT 38.7 % (34.0-47.0); LYMPH # 2.1 K/uL (1.0-4.3); LYMPH % 18.6 % (20.0-40.0); MEAN CELL VOLUME 81.9 fL (81.0-99.0); MEAN CORPUSCULAR HEMOGLOBIN 26.9 pg (27.0-31.0); MEAN CORPUSCULAR HGB CONC 32.8 g/dL (33.0-37.0); MONO # 1.1 K/uL (0.0-0.8); MONO % 10.1 % (0.0-10.0); RED CELL DISTRIBUTION WIDTH 14.7 % (11.5-14.5)
[2017-03-04 22:09] LABS: POTASSIUM 4.6 mmol/L (3.6-5.2)
[2017-03-04 22:11] LABS: BILIRUBIN,TOTAL 0.7 mg/dL (0.2-1.3)
[2017-03-04 22:12] LABS: TOTAL PROTEIN 7.9 g/dL (6.3-8.3)
[2017-03-04] MEDS ORDERED: Sodium Chloride 0.9% 1,000 ML IV ONE (22:20)
[2017-03-04 22:24] LABS: TROPONIN I 0.018 ng/mL (0.00-0.120)
[2017-03-04 22:26] LABS: RBC URINE 1 /hpf (0-3); URINE BACTERIA MANY (<OCC); URINE BILIRUBIN NEGATIVE (NEGATIVE); URINE BLOOD 1+ (NEGATIVE); URINE COLOR Yellow (YELLOW); URINE GLUCOSE (UA) NORMAL (Normal); URINE KETONE NEGATIVE (NEGATIVE); URINE LEUKOCYTE ESTERASE 3+ Leu/uL (Negative); URINE PROTEIN NEGATIVE (NEGATIVE); URINE UROBILINOGEN NORMAL mg/dL (0.2-1.0); WBC URINE 61 /hpf (0-5)
[2017-03-04] MEDS ORDERED: Sodium Chloride 0.9% 1,000 ML ONE (22:42)
[2017-03-05] MEDS ORDERED: cefTRIAXone IV 1 gm in Dextros 50 ML IVPB ONE (00:10)
[2017-03-05] MEDS ORDERED: Tramadol 25 mg PO PRN (00:50)
[2017-03-05] MEDS ORDERED: Moxifloxacin IV 400mg/250ml NS 400 MG/250 ML BAG IVPB SCH (02:00)
[2017-03-05] MEDS: (Novolog) Insulin Aspart, Recombinant 100 u/ml 10 ml vial SC SCH ×4 (08:05→21:45)
[2017-03-05] MEDS: Albuterol-Ipratrop 3 mg / 0.5 (3 ml) UD INH SCH ×3 (08:09→20:49)
[2017-03-05] MEDS: Enoxaparin 40 mg Syringe SC SCH (10:34)
[2017-03-05] MEDS: cefTRIAXone IV 1 gm in Dextros 50 ML IVPB SCH (10:35)
[2017-03-05] MEDS: Pantoprazole 40 mg EC Tab PO SCH (10:35)
[2017-03-05] MEDS: Insulin Detemir 100 units/ml Vial (Levemir) SC SCH (10:38)
--- NOTE | 2017-03-05 15:15 | CP.PCM.PN ---
Subjective - Date & Time of Evaluation Date of Evaluation: 03/05/17 Time of Evaluation: 13:40 - Subjective Subjective: trnasfer pt to dr. [place] service dr. russo notified.. Objective - Vital Signs/Intake and Output Vital Signs (last 24 hours): Temp Pulse Resp BP Pulse Ox 97.8 F 83 22 138/89 98 03/05/17 09:18 03/05/17 09:18 03/05/17 09:18 03/05/17 09:18 03/05/17 09:18 Intake and Output: 03/05/17 03/05/17 06:59 18:59 Intake Total 450 Balance 450 - Medications Medications: Current Medications Albuterol/Ipratropium (Duoneb 3 Mg/0.5 Mg (3 Ml) Ud) 3 ml INH RQ6 [facility] Last Admin: 03/05/17 13:48 Dose: 3 ml Aspirin (Ecotrin) 81 mg PO DAILY [facility] Last Admin: 03/05/17 10:35 Dose: 81 mg Enoxaparin Sodium (Lovenox) 40 mg SC DAILY [facility] Last Admin: 03/05/17 10:34 Dose: 40 mg Hydrocortisone (Anusol-Hc) 25 mg [place] BID [facility] Last Admin: 03/05/17 10:35 Dose: 25 mg Ceftriaxone Sodium (Rocephin Iv 1 Gm Duplex) 50 mls @ 100 mls/hr IVPB DAILY [facility] Last Admin: 03/05/17 10:35 Dose: 100 mls/hr Insulin Aspart (Novolog) 0 unit SC ACHS [facility] PRN Reason: Protocol Last Admin: 03/05/17 12:26 Dose: 3 unit Insulin Detemir (Levemir) 14 unit SC DAILY [facility] Last Admin: 03/05/17 10:38 Dose: 14 unit Metoprolol Tartrate (Lopressor) 100 mg PO QPM [facility] Pantoprazole Sodium (Protonix Ec Tab) 40 mg PO DAILY [facility] Last Admin: 03/05/17 10:35 Dose: 40 mg Pneumococcal Polyvalent Vaccine (Pneumovax 23 Vaccine) 0.5 ml IM .ONCE ONE Stop: 03/07/17 10:01 Rosuvastatin Calcium (Crestor) 10 mg PO QPM [facility] Torsemide (Demadex) 40 mg PO DAILY [facility] Last Admin: 03/05/17 10:35 Dose: 40 mg Tramadol HCl (Ultram) 25 mg PO TID PRN PRN Reason: Pain, moderate (4-7)
--- NOTE | 2017-03-05 15:49 | CP.PCM.HP ---
History of Present Illness - History of Present Illness History of Present Illness: 66-year-old female with history of congestive heart failure, COPD, hypertension hypercholesterolemia, CAD, status post a coronary artery bypass grafting. Patient was recently hospitalized with altered mental status. At the time patient was having significant pain, seen by pain specialist. During the time patient was sent to the rehabilitation. When I went to see the patient last night, she was having significant altered mental status, she was not responding appropriately. She was sitting up in the chair. She was drowsy, sleepy. The labs also done in the morning yesterday [facility] showing evidence of dehydration, and the suspected hypercalcemia, she was complaining of chest pain on top of that. I spoke to the family, decided to send the patient to the emergency room again. In the emergency room patient was evaluated, and was given IV fluid antibiotic and admitted to the medical floor. Today patient is more awake and responding. She's not in any distress. She denies any nausea vomiting, but the poor appetite noted. Weakness on the low your back pain noted Past medical history: Arthritis, lumbosacral pain, history of epidural injection, hypertension high cholesterol, sleep apnea, history of CAD, status post a CABG Allergic to sulfa Personal history: Nonsmoker nonalcoholic Medications reviewed in Family history noncontributory On examination: Patient is not in any distress. No distress noted Chest good air entry bilaterally regular heart sound abdomen soft and nontender extremities 1+ edema Labs reviewed Showing evidence of anion gap. Surgical history of dehydration Urinalysis suspicious for UTI On antibiotic Assessment and recommendation: 66-year-old female with history of CHF COPD hypertension high cholesterol CAD status post CABG. History of chronic lower back pain, complicated with the poor walking capacity. History present epidural injection. Obesity. Associated with hyperventilation, and the sleep apnea. Now having cough. Continue the bronchodilating her antibiotic cardiology, infectious disease evaluation. Will follow the patient Present on Admission - Present on Admission Any Indicators Present on Admission: No History of DVT/PE: No History of Uncontrolled Diabetes: No Urinary Catheter: No Decubitus Ulcer Present: No Past Patient History - Past Medical History & Family History Past Medical History?: Yes - Past Social History Smoking Status: Never Smoked - CARDIAC Hx Cardiac Disorders: Yes Hx Congestive Heart Failure: Yes Hx Hypercholesterolemia: Yes Hx Hypertension: Yes Hx Pacemaker: No - PULMONARY Hx Respiratory Disorders: Yes Hx Chronic Obstructive Pulmonary Disease (COPD): Yes Hx Sleep Apnea: Yes - NEUROLOGICAL Hx Neurological Disorder: Yes HX Cerebrovascular Accident: Yes - HEENT Hx HEENT Problems: No - RENAL Hx Chronic Kidney Disease: No - ENDOCRINE/METABOLIC Hx Endocrine Disorders: Yes Hx Diabetes Mellitus Type 2: Yes - HEMATOLOGICAL/ONCOLOGICAL Hx Blood Disorders: No Hx Blood Transfusions: No Hx Blood Transfusion Reaction: No - INTEGUMENTARY Hx Dermatological Problems: No - MUSCULOSKELETAL/RHEUMATOLOGICAL Hx Falls: Yes - GASTROINTESTINAL Hx Bowel Surgery: No Other/Comment: Gastric sleeve - GENITOURINARY/GYNECOLOGICAL Hx Genitourinary Disorders: Yes Hx Incontinence: Yes - PSYCHIATRIC Hx Substance Use: No - SURGICAL HISTORY Hx Surgeries: Yes Hx Coronary Artery Bypass Graft: Yes - ANESTHESIA Hx Anesthesia: Yes Hx Anesthesia Reactions: Yes (ITCHiness) Hx Malignant Hyperthermia: No Has any member of the family had a problem w/ anesthesia?: No Meds Allergies/Adverse Reactions: Allergies Allergy/AdvReac Type Severity Reaction Status Date / Time Sulfa (Sulfonamide Allergy Intermediate RASH Verified 02/27/17 17:57 Antibiotics) Results - Vital Signs Recent Vital Signs: Last Vital Signs Temp 97.8 F 03/05/17 09:18 Pulse 83 03/05/17 09:18 Resp 22 03/05/17 09:18 BP 138/89 03/05/17 09:18 Pulse Ox 98 03/05/17 09:18 - Labs Result Diagrams: 03/04/17 21:58 03/04/17 21:58 Labs: Laboratory Results - last 24 hr 03/05/17 03/05/17 07:48 11:38 POC Glucose (mg/dL) 232 H 251 H
--- NOTE | 2017-03-05 16:37 | CP.PCM.CON ---
History of Present Illness - History of Present Illness History of Present Illness: 66 y/o female who was admitted 5 days ago for questionable AMS. She had suffered a recent fall and was supposed to go to pain management clinic, but never went. Also admitted for concern of stroke, which was not the case. While inpatient she had a psych evaluation for depression and was managed for dehydration. Patient was discharged from the hospital yesterday, and was transferred to a rehab for pain management and was transferred from there today. Earlier today the patient had complained of chest pain while at the rehab , and labs were ordered. Tonight labs revealed renal insufficiency, elevated Calcium, and they referred her here for evaluation of chest pain with possible dehydration. On arrival she has no complaints. Does not recall having chest pain earlier today. No shortness of breath or abdominal pain. Of note, patient was recently started on Lyrica and Ultracet. ID consultued for UTI r/o sepsis - Medical History PMH: Arthritis, CHF, COPD, HTN, Hypercholesterolemia, Sleep Apnea Surgical History: CABG Review of Systems - Review of Systems All systems: reviewed and no additional remarkable complaints except - Constitutional Constitutional: As Per HPI - EENT Eyes: absent: As Per HPI, Blind Spots, Blurred Vision, Change in Vision, Decreased Night Vision, Diplopia, Discharge, Dry Eye, Exophthalmos, Floaters, Irritation, Itchy Eyes, Loss of Peripheral Vision, Pain, Photophobia, Requires Corrective Lenses, Sees Flashes, Spots in Vision, Tunnel Vision, Other Visual Disturbances, Loss of Vision, Other Ears: absent: As Per HPI, Decreased Hearing, Ear Discharge, Ear Pain, Tinnitus, Abnormal Hearing, Disequilibrium, Dizziness, Other Nose/Mouth/Throat: absent: As Per HPI, Epistaxis, Nasal Congestion, Nasal Discharge, Nasal Obstruction, Nasal Trauma, Nose Pain, Post Nasal Drip, Sinus Pain, Sinus Pressure, Bleeding Gums, Change in Voice, Dental Pain, Dry Mouth, Dysphagia, Halitosis, Hoarsness, Lip Swelling, Mouth Lesions, Mouth Pain, Odynophagia, Sore Throat, Throat Swelling, Tongue Swelling, Facial Pain, Neck Pain, Neck Mass, Other - Breasts Breasts: absent: As Per HPI, Change in Shape, Mass, Pain, Nipple Discharge, Nipple Inversion, Skin Changes, Swelling, Other - Cardiovascular Cardiovascular: absent: As Per HPI, Acrocyanosis, Chest Pain, Chest Pain at Rest , Chest Pain with Activity, Claudication, Diaphoresis, Dyspnea, Dyspnea on Exertion, Edema, Irregular Heart Rhythm, Pain Radiating to Arm/Neck/Jaw, Leg Edema, Leg Ulcers, Lightheadedness, Orthopnea, Palpitations, Paroxysmal Nocturnal Dyspnea, Pedal Edema, Radiating Pain, Rapid Heart Rate, Slow Heart Rate, Syncope, Other - Respiratory Respiratory: absent: As Per HPI, Cough, Dyspnea, Hemoptysis, Dyspnea on Exertion , Wheezing, Snoring, Stridor, Pain on Inspiration, Chest Congestion, Excessive Mucous Production, Change in Mucous Color, Pain with Coughing, Other - Gastrointestinal Gastrointestinal: As Per HPI - Genitourinary Genitourinary: As Per HPI - Reproductive: Female Reproductive:Female: absent: As Per HPI, Amenorrhea, Amenorrhea/ Control, Currently Menstual, Cycle <21 Days, Cycle >35 Days, Cycle Variable, Menses 1-7 Days, Menses >/= 8 Days, Menses Variable, Cycle > 4 Weeks Between, No Menses for 6 Months, Heavy Menses, Light Menses, Normal Menses, Spotting Between Cycles , S/P Hysterectomy, Menopausal, Post Menopausal, Premenarche, Abnormal Vaginal Bleeding, Dysmenorrhea, Dyspareunia, Genital Lesions, Genital Pruritis, Pelvic Pain, Prolapse Symptoms, Sexual Dysfunction, Vaginal Discharge, Vaginal Dryness , Vaginal Odor, Vaginal Pruritis, Other - Menstruation Menstruation: absent: As Per HPI, Amenorrhea, Amenorrhea/ Control, Currently Menstual, Cycle <21 Days, Cycle >35 Days, Cycle Variable, Menses 1-7 Days, Menses >/= 8 Days, Menses Variable, Cycle > 4 Weeks Between, No Menses for 6 Months, Heavy Menses, Light Menses, Normal Menses, Spotting Between Cycles , S/P Hysterectomy, Menopausal, Post Menopausal, Premenarche, Abnormal Vaginal Bleeding, Dysmenorrhea, Other - Musculoskeletal Musculoskeletal: As Per HPI - Integumentary Integumentary: absent: As Per HPI, Acne, Alopecia, Bleeding Lesions, Change in Hair, Change in Nails, Change in Pigmentation, Changing Lesions, Dry Skin, Erythema, Furuncle, Hirsutism, Lesions, New Lesions, Non-Healing Lesions, Photosensitivity, Pruritus, Rash, Skin Pain, Skin Ulcer, Sores, Striae, Swelling , Unusual Bruising, Wounds, Jaundice, Other - Neurological Neurological: absent: As Per HPI, Abnormal Gait, Abnormal Hearing, Abnormal Movements, Abnormal Speech, Behavioral Changes, Burning Sensations, Confusion, Convulsions, Disequilibrium, Dizziness, Numbness, Focal Weakness, Frequent Falls , Headaches, Lack of Coordination, Loss of Vision, Memory Loss, Paresthesias, Radicular Pain, Restless Legs, Sensory Deficit, Syncope, Tingling, Tremor, Vertigo, Weakness, Other Visual Disturbances, Other - Psychiatric Psychiatric: absent: As Per HPI, Abnormal Sleep Pattern, Anhedonia, Anxiety, Auditory Hallucinations, Behavioral Changes, Change in Appetite, Change in Libido, Confusion, Depression, Difficulty Concentrating, Hallucinations, Homicidal Ideation, Hopelessness, Irritability, Memory Loss, Mood Swings, Panic Attacks, Paranoia, Suicidal Ideation, Visual Hallucinations, Tactile Hallucinations, Other - Endocrine Endocrine: absent: As Per HPI, Change in Body Appearance, Change in Libido, Cold Intolorance, Deepening of Voice, Excessive Sweating, Fatigue, Flushing, Heat Intolorance, Increase in Ring/Shoe/Hat Size, Palpitations, Polydipsia, Polyphagia, Polyuria, Other Past Patient History - Past Medical History & Family History Past Medical History?: Yes - Past Social History Smoking Status: Never Smoked - CARDIAC Hx Cardiac Disorders: Yes Hx Congestive Heart Failure: Yes Hx Hypercholesterolemia: Yes Hx Hypertension: Yes Hx Pacemaker: No - PULMONARY Hx Respiratory Disorders: Yes Hx Chronic Obstructive Pulmonary Disease (COPD): Yes Hx Sleep Apnea: Yes - NEUROLOGICAL Hx Neurological Disorder: Yes HX Cerebrovascular Accident: Yes - HEENT Hx HEENT Problems: No - RENAL Hx Chronic Kidney Disease: No - ENDOCRINE/METABOLIC Hx Endocrine Disorders: Yes Hx Diabetes Mellitus Type 2: Yes - HEMATOLOGICAL/ONCOLOGICAL Hx Blood Disorders: No Hx Blood Transfusions: No Hx Blood Transfusion Reaction: No - INTEGUMENTARY Hx Dermatological Problems: No - MUSCULOSKELETAL/RHEUMATOLOGICAL Hx Falls: Yes - GASTROINTESTINAL Hx Bowel Surgery: No Other/Comment: Gastric sleeve - GENITOURINARY/GYNECOLOGICAL Hx Genitourinary Disorders: Yes Hx Incontinence: Yes - PSYCHIATRIC Hx Substance Use: No - SURGICAL HISTORY Hx Surgeries: Yes Hx Coronary Artery Bypass Graft: Yes - ANESTHESIA Hx Anesthesia: Yes Hx Anesthesia Reactions: Yes (ITCHiness) Hx Malignant Hyperthermia: No Has any member of the family had a problem w/ anesthesia?: No Meds Allergies/Adverse Reactions: Allergies Allergy/AdvReac Type Severity Reaction Status Date / Time Sulfa (Sulfonamide Allergy Intermediate RASH Verified 02/27/17 17:57 Antibiotics) - Medications Medications: Current Medications Albuterol/Ipratropium (Duoneb 3 Mg/0.5 Mg (3 Ml) Ud) 3 ml INH RQ6 [facility] Last Admin: 03/05/17 13:48 Dose: 3 ml Aspirin (Ecotrin) 81 mg PO DAILY [facility] Last Admin: 03/05/17 10:35 Dose: 81 mg Enoxaparin Sodium (Lovenox) 40 mg SC DAILY [facility] Last Admin: 03/05/17 10:34 Dose: 40 mg Hydrocortisone (Anusol-Hc) 25 mg SD BID [facility] Last Admin: 03/05/17 10:35 Dose: 25 mg Ceftriaxone Sodium (Rocephin Iv 1 Gm Duplex) 50 mls @ 100 mls/hr IVPB DAILY [facility] Last Admin: 03/05/17 10:35 Dose: 100 mls/hr Insulin Aspart (Novolog) 0 unit SC ACHS [facility] PRN Reason: Protocol Last Admin: 03/05/17 12:26 Dose: 3 unit Insulin Detemir (Levemir) 14 unit SC DAILY [facility] Last Admin: 03/05/17 10:38 Dose: 14 unit Metoprolol Tartrate (Lopressor) 100 mg PO QPM [facility] Pantoprazole Sodium (Protonix Ec Tab) 40 mg PO DAILY [facility] Last Admin: 03/05/17 10:35 Dose: 40 mg Pneumococcal Polyvalent Vaccine (Pneumovax 23 Vaccine) 0.5 ml IM .ONCE ONE Stop: 03/07/17 10:01 Rosuvastatin Calcium (Crestor) 10 mg PO QPM [facility] Torsemide (Demadex) 40 mg PO DAILY [facility] Last Admin: 03/05/17 10:35 Dose: 40 mg Tramadol HCl (Ultram) 25 mg PO TID PRN PRN Reason: Pain, moderate (4-7) Physical Exam - Constitutional Appears: Non-toxic, Chronically Ill - Head Exam Head Exam: NORMOCEPHALIC - Eye Exam Eye Exam: PERRL. absent: Scleral icterus - ENT Exam ENT Exam: Mucous Membranes Dry, Normal External Ear Exam - Neck Exam Neck exam: Negative for: Lymphadenopathy - Respiratory Exam Respiratory Exam: Decreased Breath Sounds, Rhonchi - Cardiovascular Exam Cardiovascular Exam: REGULAR RHYTHM, +S1, +S2 - GI/Abdominal Exam GI & Abdominal Exam: Diminished Bowel Sounds, Hypoactive Bowel Sounds - Rectal Exam Rectal Exam: Deferred - Exam Exam: NORMAL INSPECTION - Back Exam Back exam: absent: CVA tenderness (L), CVA tenderness (R) - Neurological Exam Neurological exam: Alert, CN II-XII Intact, Oriented x3, Reflexes Normal - Psychiatric Exam Psychiatric exam: Depressed - Skin Skin Exam: Dry Results - Vital Signs Recent Vital Signs: Last Vital Signs Temp 97.9 F 03/05/17 16:00 Pulse 80 03/05/17 16:00 Resp 18 03/05/17 16:00 BP 139/88 03/05/17 16:00 Pulse Ox 100 03/05/17 16:00 - Labs Result Diagrams: 03/04/17 21:58 03/04/17 21:58 Labs: Laboratory Results - last 24 hr 03/05/17 03/05/17 07:48 11:38 POC Glucose (mg/dL) 232 H 251 H Assessment & Plan (1) Altered mental status Status: Acute (2) Dehydration Status: Acute (3) UTI (urinary tract infection) Status: Acute - Assessment and Plan (Free Text) Assessment: check venous doppler cont iv antibiotics
[2017-03-05] MEDS: Sodium Chloride 0.9% 1,000 ML IV SCH (19:55)
[2017-03-06] MEDS: Albuterol-Ipratrop 3 mg / 0.5 (3 ml) UD INH SCH ×4 (01:07→19:33)
--- NOTE | 2017-03-06 07:30 | CON ---
CARDIOLOGY CONSULT REASON FOR CONSULTATION: Chest pain. HISTORY OF PRESENT ILLNESS: The patient is a 66 years old [place] female having history of quadruple bypass surgery at [facility] in 2002 followed by coronary intervention, the most recent one was 3 years ago according to the patient. The patient has a history of depression and history of old stroke that showed on a recent MRI. The patient was admitted last week after she was found by her son to be unresponsive in her couch at home. There was no reported urinary continence or thumb biting. Brain MRI on the 02/28 revealed no definite acute intracranial findings, age-related degenerative changes, left-sided chronic lacunes. The patient was transferred to rehab; however, she was readmitted because of chest discomfort. At this time, the patient does not recall that she had a chest pain and she has no chest pain at this time. SOCIAL HISTORY: Nonsmoker, nondrinker. 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 Her son is also a frequent visitor for her. MEDICATIONS: Crestor 10 mg once a day, Demadex 40 mg once a day, albuterol inhaler, aspirin 81 mg once a day, Levemir 40 units subcutaneously daily, Lopressor 100 mg daily, Lovenox 40 mg subcutaneous once a day, and Rocephin 1 g intravenously once a day. REVIEW OF SYSTEMS: No reported hypotension, no reported seizure activity. No nausea or vomiting. No fever or chills. PHYSICAL EXAMINATION: GENERAL: The patient is an elderly female who does not appear to be in any distress. VITAL SIGNS: Blood pressure , heart rate 86, temperature 97.8, and respirations 22. HEENT: Normocephalic. NECK: No JVD. CHEST: Clear. HEART: S1 and S2 are regular. ABDOMEN: Soft. EXTREMITIES: No edema or calf tenderness. IMAGING: An EKG revealed sinus rhythm, left bundle-branch block. A recent brain MRI in 02/28 revealed left-sided chronic lacunes. Lumbar spine revealed degenerative lumbar spondylosis with degenerative disk changes. Recent thoracic spine x-ray revealed diffuse thoracic intervertebral disk space narrowing. LABORATORY DATA: SMA-7: Sodium 141, potassium 4.6, chloride is 98, CO2 of 24, glucose 187, BUN 51 and creatinine 1.5. One set of troponin is negative. Hemoglobin and hematocrit is 12.7 and 38.7, white count 11.0 and platelet count 321,000. ASSESSMENT: 1. Reported chest pain, rule out myocardial infarction. The patient does not report experiencing chest pain at this time. 2. Coronary artery disease, status post quadruple bypass surgery in 2002. 3. Abnormal EKG with a left bundle-branch block. 4. Hypertension and uncontrolled diabetes mellitus. 5. Chronic renal insufficiency. 6. History of multiple left-sided lacunar infarcts in the past. 7. Unresponsiveness recently, rule out syncope, further seizures. PLAN: Continue current aspirin 81 mg once daily, Lopressor 100 mg once a day, subcutaneous Lovenox is 40 mg once a day, Crestor is 10 mg once a day, continue IV Rocephin. Transfer the patient to telemetry. Obtain an echocardiogram. I will follow carotid Doppler study that was performed during the most recent admission. Monitor serial cardiac enzymes. Meek Devine MD
[2017-03-06 07:37] LABS: BASO % 0.6 % (0.0-2.0); EOS # 0.3 K/uL (0.0-0.7); EOS % 4.1 % (0.0-4.0); HEMATOCRIT 33.3 % (34.0-47.0); LYMPH # 2.1 K/uL (1.0-4.3); LYMPH % 27.5 % (20.0-40.0); MEAN CELL VOLUME 81.1 fL (81.0-99.0); MEAN CORPUSCULAR HEMOGLOBIN 26.6 pg (27.0-31.0); MEAN CORPUSCULAR HGB CONC 32.8 g/dL (33.0-37.0); MEAN PLATELET VOLUME 9.2 fL (7.2-11.7); MONO # 0.7 K/uL (0.0-0.8); MONO % 9.5 % (0.0-10.0); RED CELL DISTRIBUTION WIDTH 14.2 % (11.5-14.5); WHITE BLOOD COUNT 7.5 K/uL (4.8-10.8)
[2017-03-06 07:49] LABS: POTASSIUM 3.2 mmol/L (3.6-5.2)
[2017-03-06 07:51] LABS: BILIRUBIN,TOTAL 0.5 mg/dL (0.2-1.3)
[2017-03-06 07:52] LABS: CALCIUM 9.5 mg/dl (8.6-10.4); TOTAL PROTEIN 6.4 g/dL (6.3-8.3)
--- NOTE | 2017-03-06 09:41 | RAD ---
HISTORY: pneumonia COMPARISON: 02/27/2017 FINDINGS: LUNGS: No active pulmonary disease. PLEURA: No significant pleural effusion identified, no pneumothorax apparent. CARDIOVASCULAR: Status post CABG. No cardiomegaly. No congestive change. OSSEOUS STRUCTURES: No significant abnormalities. VISUALIZED UPPER ABDOMEN: Normal. OTHER FINDINGS: None. IMPRESSION: No active disease.
[2017-03-06] MEDS: Insulin Detemir 100 units/ml Vial (Levemir) SC SCH (10:01)
[2017-03-06] MEDS: Enoxaparin 40 mg Syringe SC SCH (10:01)
[2017-03-06] MEDS: Pantoprazole 40 mg EC Tab PO SCH (10:01)
[2017-03-06] MEDS: (Novolog) Insulin Aspart, Recombinant 100 u/ml 10 ml vial SC SCH ×4 (10:01→22:04)
[2017-03-06] MEDS: cefTRIAXone IV 1 gm in Dextros 50 ML IVPB SCH (10:02)
[2017-03-06] MEDS: Hydrocortisone 2.5% Rectal Cream(30 gm) PR SCH ×2 (10:02→18:15)
[2017-03-06] MEDS: Sodium Chloride 0.9% 1,000 ML IV SCH ×2 (10:12→22:05)
--- NOTE | 2017-03-06 12:27 | CARD ---
APPROVED REPORT EKG Measurement Heart [id number] <Conclusion> Normal sinus rhythm Possible Left atrial enlargement Left axis deviation Left bundle branch block Abnormal ECG
[2017-03-06 18:11] VITALS: RESP 20
--- NOTE | 2017-03-06 22:08 | PN ---
DATE: SUBJECTIVE: The patient denies any dizziness or chest pain. PHYSICAL EXAMINATION: VITAL SIGNS: Blood pressure 156/98, heart rate 91, temperature 98.5, respirations 18. HEENT: Pale conjunctivae. CHEST: Minimal rhonchi. HEART: S1 and S2 regular. EXTREMITIES: Trace leg edema. LABORATORY DATA: Hemoglobin and hematocrit 10.9 and 33.0. White count and platelet count are within normal limits. SMA-7 is within normal limits except for potassium 3.2, BUN of 37 and glucose of 222. Venous Doppler of lower extremity was performed and the reports are still pending. ASSESSMENT: 1. Questionable history of chest pain. 2. Coronary artery disease, status post quadruple bypass surgery in 2002, followed by percutaneous coronary intervention. 3. Abnormal EKG with a left bundle branch block. 4. Uncontrolled diabetes mellitus. 5. Hypertension. 6. History of multiple left-sided lacunar infarcts. RECOMMENDATIONS: Continue current Crestor 10 mg once a day, aspirin 81 mg once a day, Lopressor 100 mg daily, Lovenox is 40 mg subcutaneous once a day, IV Rocephin at 1 g daily. I will follow venous Doppler results and review the echocardiographic study. I will order KCL 20 mEq today. Meek Devine MD
--- NOTE | 2017-03-06 23:46 | CP.PCM.PN ---
Subjective - Date & Time of Evaluation Date of Evaluation: 03/06/17 Time of Evaluation: 23:46 - Subjective Subjective: Patient today still feeling much better. She is able to comprehend, alert and awake now. Still feeling weakness. Tiredness noted. Vital signs reviewed Chest good air entry. Clinical examination is unremarkable otherwise, acceptable edema bilaterally in the legs noted Diagnosis: Altered mental status Urinary tract infection Dehydration. Continue the current treatment. Objective - Vital Signs/Intake and Output Vital Signs (last 24 hours): Temp Pulse Resp BP Pulse Ox 98.6 F 90 20 150/90 98 03/06/17 17:00 03/06/17 17:00 03/06/17 17:00 03/06/17 17:00 03/06/17 17:00 Intake and Output: 03/06/17 03/07/17 18:59 06:59 Intake Total 500 Balance 500 - Medications Medications: Current Medications Albuterol/Ipratropium (Duoneb 3 Mg/0.5 Mg (3 Ml) Ud) 3 ml INH RQ6 [facility] Last Admin: 03/06/17 19:33 Dose: 3 ml Aspirin (Ecotrin) 81 mg PO DAILY [facility] Last Admin: 03/06/17 10:01 Dose: 81 mg Enoxaparin Sodium (Lovenox) 40 mg SC DAILY [facility] Last Admin: 03/06/17 10:01 Dose: 40 mg Hydrocortisone (Anusol-Hc) 1 gm [place] BID [facility] Last Admin: 03/06/17 18:15 Dose: 1 applic Ceftriaxone Sodium (Rocephin Iv 1 Gm Duplex) 50 mls @ 100 mls/hr IVPB DAILY [facility] Last Admin: 03/06/17 10:02 Dose: 100 mls/hr Sodium Chloride (Sodium Chloride 0.9%) 1,000 mls @ 75 mls/hr IV .[id number] [facility] Stop: 03/15/17 18:31 Last Admin: 03/06/17 22:05 Dose: Not Given Insulin Aspart (Novolog) 0 unit SC ACHS [facility] PRN Reason: Protocol Last Admin: 03/06/17 22:04 Dose: Not Given Insulin Detemir (Levemir) 14 unit SC DAILY [facility] Last Admin: 03/06/17 10:01 Dose: 14 unit Metoprolol Tartrate (Lopressor) 100 mg PO QPM [facility] Last Admin: 03/06/17 18:14 Dose: 100 mg Pantoprazole Sodium (Protonix Ec Tab) 40 mg PO DAILY [facility] Last Admin: 03/06/17 10:01 Dose: 40 mg Pneumococcal Polyvalent Vaccine (Pneumovax 23 Vaccine) 0.5 ml IM .ONCE ONE Stop: 03/07/17 10:01 Rosuvastatin Calcium (Crestor) 10 mg PO QPM [facility] Last Admin: 03/06/17 18:14 Dose: 10 mg Tramadol HCl (Ultram) 25 mg PO BID PRN PRN Reason: Pain, moderate (4-7)
[2017-03-07] MEDS: Albuterol-Ipratrop 3 mg / 0.5 (3 ml) UD INH SCH ×4 (01:10→19:15)
[2017-03-07 06:40] LABS: HEMATOCRIT 35.5 % (34.0-47.0); MEAN CELL VOLUME 81.1 fL (81.0-99.0); MEAN CORPUSCULAR HEMOGLOBIN 26.7 pg (27.0-31.0); MEAN CORPUSCULAR HGB CONC 32.9 g/dL (33.0-37.0); MEAN PLATELET VOLUME 9.2 fL (7.2-11.7); RED CELL DISTRIBUTION WIDTH 14.3 % (11.5-14.5); WHITE BLOOD COUNT 8.6 K/uL (4.8-10.8)
[2017-03-07 06:52] LABS: CHLORIDE 101 mmol/L (98-107); POTASSIUM 3.8 mmol/L (3.6-5.2); SODIUM 138 mmol/L (132-148)
[2017-03-07 06:55] LABS: BLOOD UREA NITROGEN 31 mg/dL (7-17); CARBON DIOXIDE 22 mmol/L (22-30); GFR AFRICAN-AMERICAN > 60; GLUCOSE,RANDOM 273 mg/dL (65-105)
[2017-03-07] MEDS: (Novolog) Insulin Aspart, Recombinant 100 u/ml 10 ml vial SC SCH ×4 (08:10→21:39)
[2017-03-07] MEDS: Tramadol 25 mg PO PRN ×2 (09:15→17:29)
[2017-03-07] MEDS: Pantoprazole 40 mg EC Tab PO SCH (09:16)
[2017-03-07] MEDS: Hydrocortisone 2.5% Rectal Cream(30 gm) PR SCH ×2 (09:17→17:32)
[2017-03-07] MEDS: Insulin Detemir 100 units/ml Vial (Levemir) SC SCH (09:17)
[2017-03-07] MEDS: Enoxaparin 40 mg Syringe SC SCH (09:17)
[2017-03-07] MEDS: cefTRIAXone IV 1 gm in Dextros 50 ML IVPB SCH (09:40)
[2017-03-07] MEDS ORDERED: Pneumococcal 23-Valent Vaccine IM ONE (10:00)
--- NOTE | 2017-03-07 10:46 | VASCLAB ---
PROCEDURE: Lower Extremity Venous Duplex Exam. HISTORY: right leg swelling pain PRIORS: None. TECHNIQUE: Bilateral common femoral, femoral, popliteal and posterior tibial, peroneal and great saphenous veins were evaluated. Flow was assessed with color Doppler, compressibility, assessment of phasic flow and augmentation response. Report prepared by Miki Ledesma, BLESSING, RVT FINDINGS: RIGHT: 1. Common Femoral Vein: 1.1. Compressibility - Fully compressible: Thrombus - None : Flow - Phasic: Augmentation -Normal: Reflux - None. 2. Femoral Vein: 2.1. Compressibility - Fully compressible: Thrombus - None : Flow - Phasic: Augmentation -Normal: Reflux - None. 3. Popliteal Vein: 3.1. Compressibility - Fully compressible: Thrombus - None : Flow - Phasic: Augmentation -Normal: Reflux - None. 4. Posterior Tibial Vein: 4.1. Compressibility - Fully compressible: Thrombus - None: Flow - Phasic: Augmentation -Normal: Reflux - None. 5. Peroneal Vein: 5.1. Compressibility - Fully compressible: Thrombus - None: Flow - Phasic: Augmentation -Normal: Reflux - None. 6. Great Saphenous Vein: 6.1. Compressibility - Fully compressible: Thrombus - None: Flow - Phasic: Augmentation - Normal: Reflux - None. LEFT: 1. Common Femoral Vein: 1.1. Compressibility - Fully compressible: Thrombus - None: Flow - Phasic: Augmentation -Normal: Reflux - None. 2. Femoral Vein: 2.1. Compressibility - Fully compressible: Thrombus - None: Flow - Phasic: Augmentation -Normal: Reflux - None. 3. Popliteal Vein: 3.1. Compressibility - Fully compressible: Thrombus - None : Flow - Phasic: Augmentation -Normal: Reflux - None. 4. Posterior Tibial Vein: 4.1. Compressibility - Fully compressible: Thrombus - None: Flow - Phasic: Augmentation -Normal: Reflux - None. 5. Peroneal Vein: 5.1. Compressibility - Fully compressible: Thrombus - None: Flow - Phasic: Augmentation -Normal: Reflux - None. 6. Great Saphenous Vein: 6.1. Compressibility - : Thrombus - : Flow - : Augmentation - : Reflux - . OTHER FINDINGS: Right: None significant. Left: The left greater saphenous vein has been previously removed. IMPRESSION: Right: No evidence of deep or superficial vein thrombosis of the right lower extremity. Normal valve function noted of the right side. Left: No evidence of deep or superficial vein thrombosis of the left lower extremity. Normal valve function noted of the left side.
[2017-03-07] MEDS: Ciprofloxacin 400mg/200ml D5W 400 MG/200 ML BAG IVPB SCH (13:32)
--- NOTE | 2017-03-07 16:16 | CP.PCM.CON ---
History of Present Illness - History of Present Illness History of Present Illness: ASked today to see pt for abdom pain. Pt reports chr abdom pain and fullnees- worse x 1 week. Reports chr constip- worse x 1 week Presented to ER with AMS, UTI, dehydration, ELLIOT. PMH: CHF, OA, HTN, COPD, sleep apnea, CAd, CABG, depression, CVA, DM Pt reports EGD 4 yrs ago with gastritis. Denies colonosocpy. Review of Systems - Review of Systems Systems not reviewed;Unavailable: Altered Mental Status - Constitutional Constitutional: Fatigue, Sleep Apnea. absent: Chills, Fever - Cardiovascular Cardiovascular: absent: Chest Pain, Dyspnea - Respiratory Respiratory: absent: Hemoptysis, Wheezing - Gastrointestinal Gastrointestinal: Abdominal Pain, Bloating, Constipation. absent: Diarrhea, Dysphagia, Heartburn, Melena, Nausea, Vomiting - Genitourinary Genitourinary: absent: Hematuria - Musculoskeletal Musculoskeletal: absent: Muscle Cramps - Integumentary Integumentary: absent: Jaundice - Neurological Neurological: Confusion. absent: Vertigo - Psychiatric Psychiatric: Depression Past Patient History - Past Medical History & Family History Past Medical History?: Yes - Past Social History Smoking Status: Never Smoked - CARDIAC Hx Congestive Heart Failure: Yes Hx Hypertension: Yes - PULMONARY Hx Chronic Obstructive Pulmonary Disease (COPD): Yes - NEUROLOGICAL Hx Neurological Disorder: Yes HX Cerebrovascular Accident: Yes - HEENT Hx HEENT Problems: No - RENAL Hx Chronic Kidney Disease: No - ENDOCRINE/METABOLIC Hx Endocrine Disorders: Yes Hx Diabetes Mellitus Type 2: Yes - HEMATOLOGICAL/ONCOLOGICAL Hx Blood Disorders: No Hx Blood Transfusions: No Hx Blood Transfusion Reaction: No - INTEGUMENTARY Hx Dermatological Problems: No - MUSCULOSKELETAL/RHEUMATOLOGICAL Hx Arthritis: Yes - GASTROINTESTINAL Hx Bowel Surgery: No Other/Comment: Gastric sleeve - GENITOURINARY/GYNECOLOGICAL Hx Genitourinary Disorders: Yes Hx Incontinence: Yes - PSYCHIATRIC Hx Substance Use: No - SURGICAL HISTORY Hx Surgeries: Yes Hx Coronary Artery Bypass Graft: Yes - ANESTHESIA Hx Anesthesia: Yes Hx Anesthesia Reactions: Yes (ITCHiness) Hx Malignant Hyperthermia: No Has any member of the family had a problem w/ anesthesia?: No Meds Allergies/Adverse Reactions: Allergies Allergy/AdvReac Type Severity Reaction Status Date / Time Sulfa (Sulfonamide Allergy Intermediate RASH Verified 02/27/17 17:57 Antibiotics) - Medications Medications: Current Medications Albuterol/Ipratropium (Duoneb 3 Mg/0.5 Mg (3 Ml) Ud) 3 ml INH RQ6 [facility] Last Admin: 03/07/17 13:07 Dose: Not Given Aspirin (Ecotrin) 81 mg PO DAILY [facility] Last Admin: 03/07/17 09:17 Dose: 81 mg Enoxaparin Sodium (Lovenox) 40 mg SC DAILY [facility] Last Admin: 03/07/17 09:17 Dose: 40 mg Hydrocortisone (Anusol-Hc) 1 gm [place] BID [facility] Last Admin: 03/07/17 09:17 Dose: 1 applic Sodium Chloride (Sodium Chloride 0.9%) 1,000 mls @ 75 mls/hr IV .[id number] [facility] Stop: 03/15/17 18:31 Last Admin: 03/06/17 22:05 Dose: Not Given Ciprofloxacin (Cipro 400mg/200ml Dsw) 400 mg in 200 mls @ 133 mls/hr IVPB Q12H [facility] Last Admin: 03/07/17 13:32 Dose: 133 mls/hr Insulin Aspart (Novolog) 0 unit SC ACHS [facility] PRN Reason: Protocol Last Admin: 03/07/17 11:57 Dose: 3 unit Insulin Detemir (Levemir) 14 unit SC DAILY [facility] Last Admin: 03/07/17 09:17 Dose: 14 unit Metoprolol Tartrate (Lopressor) 100 mg PO QPM [facility] Last Admin: 03/06/17 18:14 Dose: 100 mg Pantoprazole Sodium (Protonix Ec Tab) 40 mg PO DAILY [facility] Last Admin: 03/07/17 09:16 Dose: 40 mg Rosuvastatin Calcium (Crestor) 10 mg PO QPM [facility] Last Admin: 03/06/17 18:14 Dose: 10 mg Tramadol HCl (Ultram) 25 mg PO BID PRN PRN Reason: Pain, moderate (4-7) Last Admin: 03/07/17 09:15 Dose: 25 mg Physical Exam - Constitutional Appears: Non-toxic - Neck Exam Neck exam: Negative for: Tenderness - Respiratory Exam Respiratory Exam: Clear to Auscultation Bilateral - Cardiovascular Exam Cardiovascular Exam: RRR - GI/Abdominal Exam GI & Abdominal Exam: Normal Bowel Sounds, Soft. absent: Distended, Guarding, Mass, Rebound, Tenderness - Extremities Exam Extremities exam: Positive for: pedal edema - Neurological Exam Neurological exam: Alert - Psychiatric Exam Psychiatric exam: Normal Mood Results - Vital Signs Recent Vital Signs: Last Vital Signs Temp 97.2 F L 03/07/17 08:24 Pulse 89 03/07/17 08:24 Resp 20 03/07/17 08:24 BP 136/89 03/07/17 08:24 Pulse Ox 99 03/07/17 08:24 - Labs Result Diagrams: 03/07/17 06:33 03/07/17 06:33 Labs: Laboratory Results - last 24 hr 03/06/17 03/06/17 03/07/17 16:54 21:36 06:21 WBC RBC Hgb Hct MCV MCH MCHC RDW Plt Count MPV Sodium Potassium Chloride Carbon Dioxide Anion Gap BUN Creatinine Est GFR ( Amer) Est GFR (Non-Af Amer) POC Glucose (mg/dL) 247 H 263 H 268 H Random Glucose Calcium 03/07/17 03/07/17 03/07/17 06:33 06:33 11:35 WBC 8.6 RBC 4.38 Hgb 11.7 Hct 35.5 MCV 81.1 MCH 26.7 L MCHC 32.9 L RDW 14.3 Plt Count 290 MPV 9.2 Sodium 138 Potassium 3.8 Chloride 101 Carbon Dioxide 22 Anion Gap 18 BUN 31 H Creatinine 0.9 Est GFR ( Amer) > 60 Est GFR (Non-Af Amer) > 60 POC Glucose (mg/dL) 293 H Random Glucose 273 H Calcium 10.0 Assessment & Plan (1) CAD (coronary artery disease) Assessment and Plan: CABG Status: Acute (2) COPD (chronic obstructive pulmonary disease) Status: Acute (3) Depression Status: Acute (4) Diabetes mellitus Status: Acute (5) Constipation Assessment and Plan: treat with colace and mirilax Status: Acute (6) Altered mental status Status: Acute (7) Dehydration Status: Acute (8) UTI (urinary tract infection) Status: Acute (9) Abdominal pain Assessment and Plan: Bloating. Related to constipation and gastritis REC: PPI, treat constipation, outpatient colonosocpy. Status: Acute
--- NOTE | 2017-03-07 19:25 | CARD ---
APPROVED REPORT EXAM: Two-dimensional and M-mode echocardiogram with Doppler and color Doppler. Other Information Quality : Technically Difficult StudyRhythm : NSR INDICATION CAD Congestive Heart Failure RISK FACTORS Hypertension Hyperlipidemia 2D DIMENSIONS IVSd1.1 (0.7-1.1cm)LVDd4.3 (3.9-5.9cm) PWd1.1 (0.7-1.1cm)LVDs2.9 (2.5-4.0cm) FS (%) 31.8 %LVEF (%)55.0 (>50%) M-Mode DIMENSIONS Left Atrium (MM)4.20 (2.5-4.0cm)Aortic Root3.61 (2.2-3.7cm) Aortic Cusp Exc.1.63 (1.5-2.0cm) Mitral Valve MV E Krvyclxo35.8cm/sMV A Iazjwyjs217.8cm/sE/A ratio0.6 TDI E/Lateral E'0.0E/Medial E'0.0 LEFT VENTRICLE The left ventricle is normal size. There is moderate concentric left ventricular hypertrophy. Left ventricle systolic function is low normal. The Ejection Fraction is 50-55%. Transmitral Doppler flow pattern is Grade I-abnormal relaxation pattern. RIGHT VENTRICLE The right ventricle is normal size. ATRIA The left atrium is moderately dilated. The right atrium size is normal. AORTIC VALVE The aortic valve is moderately sclerotic and thickened. No aortic regurgitation is present. There is mild valvular aortic stenosis. MITRAL VALVE Mitral annular calcification is moderate. The mitral valve leaflets are thickened. There is no mitral valve stenosis. Mitral regurgitation is mild. TRICUSPID VALVE There is mild tricuspid regurgitation. GREAT VESSELS Mildy dilated aortic root <Conclusion> Left ventricle systolic function is low normal. The Ejection Fraction is 50-55%. The aortic valve is moderately sclerotic and thickened. There is mild valvular aortic stenosis. Mitral annular calcification is moderate. The mitral valve leaflets are thickened. Mildy dilated aortic root
[2017-03-07] MEDS: POLYETHYLENE GLYCOL 3350 17 GM/Dose PACKET PO SCH (21:35)
--- NOTE | 2017-03-07 22:11 | PN ---
DATE: SUBJECTIVE: The patient denies any dizziness or chest pain. No reported ventricular arrhythmia. PHYSICAL EXAMINATION: VITAL SIGNS: Blood pressure 153/89, heart rate 89, temperature 97.2 and respirations 20. HEENT: Normocephalic. CHEST: Diminished breath sounds over the bases. HEART: S1 and S2 regular. ABDOMEN: Soft. EXTREMITIES: Trace leg edema. LABORATORY DATA: Today's hemoglobin, hematocrit, white count and platelet count are within normal limit. Today's SMA-7 within normal limits except for glucose of 273 and BUN of 31. Official echo report is not available yet. My own review revealed a very poor echo window and dilated aortic root and ejection fraction was measured to be at 55%. Official report of the venous Doppler of the lower extremity no evidence of DVT. ASSESSMENT: 1. Urinary tract infection Escherichia coli. 2. Coronary artery disease, status post coronary artery bypass surgery in 2002. 3. Abnormal EKG with a left bundle-branch block. 4. Uncontrolled diabetes mellitus. 5. History of multiple left-sided lacunar infarcts. 6. Systemic hypertension. RECOMMENDATIONS: Continue current IV Cipro at 400 mg q. 12 hours, aspirin 81 mg once a day, Lopressor 100 mg once a day and Lovenox 40 mg once a day. No further cardiac workup is indicated at this time. I reviewed the carotid Doppler study that was performed 03/01 and study does not suggest hemodynamically significant disease. Meek Devine MD
[2017-03-07] MEDS: Sodium Chloride 0.9% 1,000 ML IV SCH (23:55)
[2017-03-08] MEDS: Albuterol-Ipratrop 3 mg / 0.5 (3 ml) UD INH SCH ×4 (01:05→21:15)
[2017-03-08] MEDS: Ciprofloxacin 400mg/200ml D5W 400 MG/200 ML BAG IVPB SCH ×2 (02:13→13:55)
[2017-03-08] MEDS: Tramadol 25 mg PO PRN ×2 (02:15→17:04)
[2017-03-08] MEDS: (Novolog) Insulin Aspart, Recombinant 100 u/ml 10 ml vial SC SCH ×4 (07:37→21:48)
[2017-03-08] MEDS: Hydrocortisone 2.5% Rectal Cream(30 gm) PR SCH ×2 (09:17→19:28)
[2017-03-08] MEDS: Pantoprazole 40 mg EC Tab PO SCH (09:17)
[2017-03-08] MEDS: Enoxaparin 40 mg Syringe SC SCH (09:17)
[2017-03-08] MEDS: Insulin Detemir 100 units/ml Vial (Levemir) SC SCH (09:22)
--- NOTE | 2017-03-08 10:03 | RAD ---
HISTORY: abdom pain COMPARISON: No prior. FINDINGS: BOWEL: Chase unremarkable bowel gas pattern. No hepatic or splenic enlargement. Multiple small calcifications in the right upper quadrant of the abdomen of uncertain significance. Surgical clips in right upper quadrant suggests possible prior cholecystectomy. There also surgical clips in the mid to upper left abdomen. BONES: Degenerative change of lumbar spine. OTHER FINDINGS: None. IMPRESSION: No evidence of bowel obstruction.
[2017-03-08] MEDS: Saccharomyces Boulardi 250 mg Cap PO SCH ×2 (11:07→17:02)
--- NOTE | 2017-03-08 13:10 | CP.PCM.PN ---
Subjective - Date & Time of Evaluation Date of Evaluation: 03/08/17 Time of Evaluation: 13:08 - Subjective Subjective: CC: "my stomach feels much better" No BM Objective - Vital Signs/Intake and Output Vital Signs (last 24 hours): Temp Pulse Resp BP Pulse Ox 97 F L 98 H 20 120/76 96 03/08/17 07:00 03/08/17 07:00 03/08/17 07:00 03/08/17 07:00 03/08/17 07:00 Intake and Output: 03/08/17 03/08/17 06:59 18:59 Intake Total 1575 Balance 1575 - Medications Medications: Current Medications Albuterol/Ipratropium (Duoneb 3 Mg/0.5 Mg (3 Ml) Ud) 3 ml INH RQ6 [facility] Last Admin: 03/08/17 07:32 Dose: 3 ml Aspirin (Ecotrin) 81 mg PO DAILY [facility] Last Admin: 03/08/17 09:17 Dose: 81 mg Docusate Sodium (Colace) 100 mg PO BID [facility] Last Admin: 03/08/17 09:17 Dose: 100 mg Enoxaparin Sodium (Lovenox) 40 mg SC DAILY [facility] Last Admin: 03/08/17 09:17 Dose: 40 mg Hydrocortisone (Anusol-Hc) 1 gm [place] BID [facility] Last Admin: 03/08/17 09:17 Dose: 1 applic Ciprofloxacin (Cipro 400mg/200ml Dsw) 400 mg in 200 mls @ 133 mls/hr IVPB Q12H [facility] Last Admin: 03/08/17 02:13 Dose: 133 mls/hr Insulin Aspart (Novolog) 0 unit SC ACHS [facility] PRN Reason: Protocol Last Admin: 03/08/17 12:53 Dose: 4 unit Insulin Detemir (Levemir) 14 unit SC DAILY [facility] Last Admin: 03/08/17 09:22 Dose: 14 unit Metoprolol Tartrate (Lopressor) 100 mg PO QPM [facility] Last Admin: 03/07/17 17:29 Dose: 100 mg Pantoprazole Sodium (Protonix Ec Tab) 40 mg PO DAILY [facility] Last Admin: 03/08/17 09:17 Dose: 40 mg Polyethylene Glycol (Miralax) 17 gm PO HS [facility] Last Admin: 03/07/17 21:35 Dose: 17 gm Rosuvastatin Calcium (Crestor) 10 mg PO QPM [facility] Last Admin: 03/07/17 17:29 Dose: 10 mg Saccharomyces Boulardii (Florastor) 250 mg PO BID [facility] Last Admin: 03/08/17 11:07 Dose: 250 mg Tramadol HCl (Ultram) 25 mg PO BID PRN PRN Reason: Pain, moderate (4-7) Last Admin: 03/08/17 02:15 Dose: 25 mg - Labs Labs: 03/07/17 06:33 03/07/17 06:33 - Constitutional Appears: Well - Head Exam Head Exam: NORMOCEPHALIC - Respiratory Exam Respiratory Exam: NORMAL BREATHING PATTERN - Cardiovascular Exam Cardiovascular Exam: REGULAR RHYTHM - GI/Abdominal Exam GI & Abdominal Exam: Soft. absent: Tenderness Assessment and Plan (1) Abdominal pain Assessment & Plan: Functional XRay WNL Status: Acute (2) Constipation Assessment & Plan: Miralax Monitor progress Status: Acute
--- NOTE | 2017-03-08 17:38 | CP.PCM.PN ---
Subjective - Date & Time of Evaluation Date of Evaluation: 03/08/17 Time of Evaluation: 17:35 - Subjective Subjective: PT SEEN THIS AFTERNOON; ADMITS TO VOMITING THIS MORNING AND FEELING NAUSEOUS. NO BM THIS MORNING BUT + BM YESTERDAY. ABD XRAY NEG FOR OBSTRUCTION. NO ACTIVE VOMITING UPON EXAM. [place] [facility] [place]. IF TOLERATING PO TOMORROW, PASTE UP ARTIST OR DR. AHUMADA WILL D[place] [facility] [place] RECS. CIPRO TO BE CONTINUED WHILE INPATIENT; PENDING DURATION FROM DR. NAGEL--IF OK TO SWITCH TO PO [place] [facility] [place] FURTHER ORDERS. Objective - Vital Signs/Intake and Output Vital Signs (last 24 hours): Temp Pulse Resp BP Pulse Ox 97.9 F 106 H 20 115/82 99 03/08/17 16:00 03/08/17 16:00 03/08/17 16:00 03/08/17 16:00 03/08/17 16:00 Intake and Output: 03/08/17 03/08/17 06:59 18:59 Intake Total 1575 200 Balance 1575 200 - Medications Medications: Current Medications Albuterol/Ipratropium (Duoneb 3 Mg/0.5 Mg (3 Ml) Ud) 3 ml INH RQ6 [facility] Last Admin: 03/08/17 13:12 Dose: Not Given Aspirin (Ecotrin) 81 mg PO DAILY [facility] Last Admin: 03/08/17 09:17 Dose: 81 mg Docusate Sodium (Colace) 100 mg PO BID [facility] Last Admin: 03/08/17 17:02 Dose: 100 mg Enoxaparin Sodium (Lovenox) 40 mg SC DAILY [facility] Last Admin: 03/08/17 09:17 Dose: 40 mg Hydrocortisone (Anusol-Hc) 1 gm [place] BID [facility] Last Admin: 03/08/17 09:17 Dose: 1 applic Ciprofloxacin (Cipro 400mg/200ml Dsw) 400 mg in 200 mls @ 133 mls/hr IVPB Q12H [facility] Last Admin: 03/08/17 13:55 Dose: 133 mls/hr Insulin Aspart (Novolog) 0 unit SC ACHS [facility] PRN Reason: Protocol Last Admin: 03/08/17 12:53 Dose: 4 unit Insulin Detemir (Levemir) 14 unit SC DAILY [facility] Last Admin: 03/08/17 09:22 Dose: 14 unit Metoprolol Tartrate (Lopressor) 100 mg PO QPM [facility] Last Admin: 03/08/17 17:04 Dose: 100 mg Pantoprazole Sodium (Protonix Ec Tab) 40 mg PO DAILY [facility] Last Admin: 03/08/17 09:17 Dose: 40 mg Polyethylene Glycol (Miralax) 17 gm PO HS [facility] Last Admin: 03/07/17 21:35 Dose: 17 gm Rosuvastatin Calcium (Crestor) 10 mg PO QPM [facility] Last Admin: 03/08/17 17:03 Dose: 10 mg Saccharomyces Boulardii (Florastor) 250 mg PO BID [facility] Last Admin: 03/08/17 17:02 Dose: 250 mg Tramadol HCl (Ultram) 25 mg PO BID PRN PRN Reason: Pain, moderate (4-7) Last Admin: 03/08/17 17:04 Dose: 25 mg - Labs Labs: 03/07/17 06:33 03/07/17 06:33
--- NOTE | 2017-03-08 18:08 | CP.PCM.PN ---
Subjective - Date & Time of Evaluation Date of Evaluation: 03/08/17 Time of Evaluation: 07:00 - Subjective Subjective: events noted gi on board antibiotics in progress if nausea persists may need merrem Objective - Vital Signs/Intake and Output Vital Signs (last 24 hours): Temp Pulse Resp BP Pulse Ox 97.9 F 106 H 20 115/82 99 03/08/17 16:00 03/08/17 16:00 03/08/17 16:00 03/08/17 16:00 03/08/17 16:00 Intake and Output: 03/08/17 03/08/17 06:59 18:59 Intake Total 1575 200 Balance 1575 200 - Medications Medications: Current Medications Albuterol/Ipratropium (Duoneb 3 Mg/0.5 Mg (3 Ml) Ud) 3 ml INH RQ6 [facility] Last Admin: 03/08/17 13:12 Dose: Not Given Aspirin (Ecotrin) 81 mg PO DAILY [facility] Last Admin: 03/08/17 09:17 Dose: 81 mg Docusate Sodium (Colace) 100 mg PO BID [facility] Last Admin: 03/08/17 17:02 Dose: 100 mg Enoxaparin Sodium (Lovenox) 40 mg SC DAILY [facility] Last Admin: 03/08/17 09:17 Dose: 40 mg Hydrocortisone (Anusol-Hc) 1 gm [place] BID [facility] Last Admin: 03/08/17 09:17 Dose: 1 applic Ciprofloxacin (Cipro 400mg/200ml Dsw) 400 mg in 200 mls @ 133 mls/hr IVPB Q12H [facility] Last Admin: 03/08/17 13:55 Dose: 133 mls/hr Insulin Aspart (Novolog) 0 unit SC ACHS [facility] PRN Reason: Protocol Last Admin: 03/08/17 17:59 Dose: 3 unit Insulin Detemir (Levemir) 14 unit SC DAILY [facility] Last Admin: 03/08/17 09:22 Dose: 14 unit Metoprolol Tartrate (Lopressor) 100 mg PO QPM [facility] Last Admin: 03/08/17 17:04 Dose: 100 mg Ondansetron HCl (Zofran Inj) 4 mg IVP Q6 PRN PRN Reason: Nausea/Vomiting Pantoprazole Sodium (Protonix Ec Tab) 40 mg PO DAILY [facility] Last Admin: 03/08/17 09:17 Dose: 40 mg Polyethylene Glycol (Miralax) 17 gm PO HS [facility] Last Admin: 03/07/17 21:35 Dose: 17 gm Rosuvastatin Calcium (Crestor) 10 mg PO QPM [facility] Last Admin: 03/08/17 17:03 Dose: 10 mg Saccharomyces Boulardii (Florastor) 250 mg PO BID [facility] Last Admin: 03/08/17 17:02 Dose: 250 mg Tramadol HCl (Ultram) 25 mg PO BID PRN PRN Reason: Pain, moderate (4-7) Last Admin: 03/08/17 17:04 Dose: 25 mg - Labs Labs: 03/07/17 06:33 03/07/17 06:33 - Constitutional Appears: Non-toxic, Chronically Ill - Head Exam Head Exam: NORMOCEPHALIC - Eye Exam Eye Exam: PERRL - ENT Exam ENT Exam: Mucous Membranes Dry - Neck Exam Neck Exam: absent: Lymphadenopathy - Respiratory Exam Respiratory Exam: Decreased Breath Sounds - Cardiovascular Exam Cardiovascular Exam: REGULAR RHYTHM - GI/Abdominal Exam GI & Abdominal Exam: Distended Assessment and Plan (1) Altered mental status Status: Acute (2) Dehydration Status: Acute (3) UTI (urinary tract infection) Status: Acute
[2017-03-08] MEDS: POLYETHYLENE GLYCOL 3350 17 GM/Dose PACKET PO SCH (22:13)
--- NOTE | 2017-03-08 23:38 | HP ---
SUBJECTIVE: The patient denies chest pain. Shortness of breath has improved. No dizziness. PHYSICAL EXAMINATION: VITAL SIGNS: Blood pressure 120/76, heart rate 98, temperature 97, and respirations 20. HEENT: Normocephalic. CHEST: Diminished breath sounds over the bases. HEART: S1 and S2 regular. ABDOMEN: Soft. EXTREMITIES: 1+ pitting edema. LABORATORY DATA: Today's blood sugars are 223 and 327. Official echo report: Ejection fraction in the range of 50% to 55%, moderate sclerotic aortic valve, mild aortic valve stenosis, mildly dilated aortic root. ASSESSMENT: 1. Chest pain, myocardial infraction is ruled out. 2. Coronary artery disease, status post coronary artery bypass surgery in 2002. 3. Left bundle-branch block. 4. Uncontrolled diabetes mellitus. 5. Hypertension. 6. History of multiple left-sided lacunar infarcts. 7. Depression. RECOMMENDATIONS: Continue Crestor at 10 mg once a day, aspirin 81 mg once a day, albuterol inhaler q. 6 hours, IV Cipro at 400 mg q. 12 hours, Lovenox at 40 mg once a day, Lopressor 100 mg once a day, and Protonix at 40 mg p.o. once a day. No invasive cardiac workup is justified at this point. Meek Devine MD
[2017-03-09] MEDS: Albuterol-Ipratrop 3 mg / 0.5 (3 ml) UD INH SCH ×4 (01:15→18:59)
[2017-03-09] MEDS: Ciprofloxacin 400mg/200ml D5W 400 MG/200 ML BAG IVPB SCH ×3 (02:06→14:00)
[2017-03-09] MEDS: (Novolog) Insulin Aspart, Recombinant 100 u/ml 10 ml vial SC SCH ×3 (08:58→17:29)
[2017-03-09] MEDS: Saccharomyces Boulardi 250 mg Cap PO SCH ×2 (09:00→17:30)
[2017-03-09] MEDS: Enoxaparin 40 mg Syringe SC SCH (09:00)
[2017-03-09] MEDS: Insulin Detemir 100 units/ml Vial (Levemir) SC SCH (09:00)
[2017-03-09] MEDS: Pantoprazole 40 mg EC Tab PO SCH (09:00)
[2017-03-09] MEDS: Hydrocortisone 2.5% Rectal Cream(30 gm) PR SCH ×2 (09:05→17:32)
[2017-03-09] MEDS: Tramadol 25 mg PO PRN ×2 (09:09→17:36)
--- NOTE | 2017-03-09 09:33 | CP.PCM.PN ---
Subjective - Date & Time of Evaluation Date of Evaluation: 03/09/17 Time of Evaluation: 09:00 - Subjective Subjective: f/u abdom pain, constip Reports constip. Nausea/vomiting- yesterday- better today. Reports no abdom pain- feels much better. Denies diarrhea, RB, melena, CP, SOB, fever, hemoptysis, hematuria, SEGUNDO, cough Objective - Vital Signs/Intake and Output Vital Signs (last 24 hours): Temp Pulse Resp BP Pulse Ox 8.0 F L 99 H 20 133/85 96 03/09/17 08:09 03/09/17 08:09 03/09/17 08:09 03/09/17 08:09 03/09/17 08:09 Intake and Output: 03/09/17 03/09/17 06:59 18:59 Intake Total 200 Balance 200 - Medications Medications: Current Medications Albuterol/Ipratropium (Duoneb 3 Mg/0.5 Mg (3 Ml) Ud) 3 ml INH RQ6 [facility] Last Admin: 03/09/17 07:16 Dose: 3 ml Aspirin (Ecotrin) 81 mg PO DAILY [facility] Last Admin: 03/09/17 09:00 Dose: 81 mg Docusate Sodium (Colace) 100 mg PO BID [facility] Last Admin: 03/09/17 09:00 Dose: 100 mg Enoxaparin Sodium (Lovenox) 40 mg SC DAILY [facility] Last Admin: 03/09/17 09:00 Dose: 40 mg Hydrocortisone (Anusol-Hc) 1 gm [place] BID [facility] Last Admin: 03/09/17 09:05 Dose: 1 applic Ciprofloxacin (Cipro 400mg/200ml Dsw) 400 mg in 200 mls @ 133 mls/hr IVPB Q12H [facility] Last Admin: 03/09/17 02:06 Dose: 133 mls/hr Insulin Aspart (Novolog) 0 unit SC ACHS [facility] PRN Reason: Protocol Last Admin: 03/09/17 08:58 Dose: 2 unit Insulin Detemir (Levemir) 14 unit SC DAILY [facility] Last Admin: 03/09/17 09:00 Dose: 14 unit Metoprolol Tartrate (Lopressor) 100 mg PO QPM [facility] Last Admin: 03/08/17 17:04 Dose: 100 mg Ondansetron HCl (Zofran Inj) 4 mg IVP Q6 PRN PRN Reason: Nausea/Vomiting Pantoprazole Sodium (Protonix Ec Tab) 40 mg PO DAILY [facility] Last Admin: 03/09/17 09:00 Dose: 40 mg Polyethylene Glycol (Miralax) 17 gm PO HS [facility] Last Admin: 03/08/17 22:13 Dose: 17 gm Rosuvastatin Calcium (Crestor) 10 mg PO QPM [facility] Last Admin: 03/08/17 17:03 Dose: 10 mg Saccharomyces Boulardii (Florastor) 250 mg PO BID [facility] Last Admin: 03/09/17 09:00 Dose: 250 mg Tramadol HCl (Ultram) 25 mg PO BID PRN PRN Reason: Pain, moderate (4-7) Last Admin: 03/09/17 09:09 Dose: 25 mg - Labs Labs: 03/07/17 06:33 03/07/17 06:33 - Constitutional Appears: Non-toxic - Neck Exam Neck Exam: absent: Tenderness - Respiratory Exam Respiratory Exam: Clear to Ausculation Bilateral - Cardiovascular Exam Cardiovascular Exam: RRR - GI/Abdominal Exam GI & Abdominal Exam: Soft, Normal Bowel Sounds. absent: Tenderness - Extremities Exam Extremities Exam: absent: Calf Tenderness - Neurological Exam Neurological Exam: Alert, Awake Assessment and Plan (1) CAD (coronary artery disease) Status: Acute (2) COPD (chronic obstructive pulmonary disease) Status: Acute (3) Depression Status: Acute (4) Diabetes mellitus Status: Acute (5) Constipation Assessment & Plan: rec: Miralax, colace. Consider colonosocpy in future- discussed with patient. Status: Acute (6) Altered mental status Status: Acute (7) Dehydration Status: Acute (8) UTI (urinary tract infection) Status: Acute (9) Abdominal pain Assessment & Plan: Better. Status: Acute
--- NOTE | 2017-03-09 14:58 | CP.PCM.PN ---
Subjective - Date & Time of Evaluation Date of Evaluation: 03/09/17 Time of Evaluation: 11:30 - Subjective Subjective: COMPUTER NETWORK SUPPORT SPECIALIST NOTES Pt seen today states feels better, denies any N/V/, tolerating diet 66 yr old female admitted from [facility] with dx AMS, dehydration, UTI seen by Dr. Calles today, recommends out patient f/u seen by Dr. Martinez today , cleared for discharge to the [facility] today discharge plan discussed with patient who understands and agrees with plan Objective - Vital Signs/Intake and Output Vital Signs (last 24 hours): Temp Pulse Resp BP Pulse Ox 98.0 F 90 20 133/85 96 03/09/17 08:09 03/09/17 11:26 03/09/17 08:09 03/09/17 08:09 03/09/17 08:09 Intake and Output: 03/09/17 03/09/17 06:59 18:59 Intake Total 200 300 Output Total 0 Balance 200 300 - Medications Medications: Current Medications Albuterol/Ipratropium (Duoneb 3 Mg/0.5 Mg (3 Ml) Ud) 3 ml INH RQ6 [facility] Last Admin: 03/09/17 13:22 Dose: Not Given Aspirin (Ecotrin) 81 mg PO DAILY [facility] Last Admin: 03/09/17 09:00 Dose: 81 mg Docusate Sodium (Colace) 100 mg PO BID [facility] Last Admin: 03/09/17 09:00 Dose: 100 mg Enoxaparin Sodium (Lovenox) 40 mg SC DAILY [facility] Last Admin: 03/09/17 09:00 Dose: 40 mg Furosemide (Lasix) 40 mg IVP DAILY [facility] Hydrocortisone (Anusol-Hc) 1 gm [place] BID [facility] Last Admin: 03/09/17 09:05 Dose: 1 applic Ciprofloxacin (Cipro 400mg/200ml Dsw) 400 mg in 200 mls @ 133 mls/hr IVPB Q12H [facility] Last Admin: 03/09/17 13:31 Dose: 133 mls/hr Insulin Aspart (Novolog) 0 unit SC ACHS [facility] PRN Reason: Protocol Last Admin: 03/09/17 12:30 Dose: 3 unit Insulin Detemir (Levemir) 14 unit SC DAILY [facility] Last Admin: 03/09/17 09:00 Dose: 14 unit Metoprolol Tartrate (Lopressor) 100 mg PO QPM [facility] Last Admin: 03/08/17 17:04 Dose: 100 mg Ondansetron HCl (Zofran Inj) 4 mg IVP Q6 PRN PRN Reason: Nausea/Vomiting Pantoprazole Sodium (Protonix Ec Tab) 40 mg PO DAILY [facility] Last Admin: 03/09/17 09:00 Dose: 40 mg Polyethylene Glycol (Miralax) 17 gm PO HS [facility] Last Admin: 03/08/17 22:13 Dose: 17 gm Rosuvastatin Calcium (Crestor) 10 mg PO QPM [facility] Last Admin: 03/08/17 17:03 Dose: 10 mg Saccharomyces Boulardii (Florastor) 250 mg PO BID [facility] Last Admin: 03/09/17 09:00 Dose: 250 mg Tramadol HCl (Ultram) 25 mg PO BID PRN PRN Reason: Pain, moderate (4-7) Last Admin: 03/09/17 09:09 Dose: 25 mg Triamcinolone Acetonide (Kenalog 0.1% Cream) 0 appl TOP BID [facility] - Labs Labs: 03/07/17 06:33 03/07/17 06:33
[2017-03-09 17:11] VITALS: BP 125/87; PULSE 94; TEMP 97.9; O2SAT 99
--- NOTE | 2017-03-09 19:03 | PN ---
DATE: SUBJECTIVE: The patient's shortness of breath has improved. She is experiencing worsening of leg swelling. PHYSICAL EXAMINATION VITAL SIGNS: Blood pressure 162/85, heart rate 99, temperature 98, respirations 20. HEENT: Normocephalic. CHEST: Bilateral rhonchi. HEART: S1 and S2 regular. EXTREMITIES: 2+ pitting edema. LABORATORY DATA: Today's blood sugars is 221. ASSESSMENT: 1. Mild congestive heart failure. 2. Coronary artery disease, status post coronary artery bypass surgery followed by coronary intervention. 3. Depression. 4. History of multiple cerebrovascular accidents. RECOMMENDATIONS: Continue aspirin 81 mg once a day, IV Cipro at 400 mg q. 12 hours, Crestor 10 mg once a day, Lopressor at 100 mg once a day, Lovenox at 40 mg once a day. Start Lasix as 40 mg intravenously daily. Meek Devine MD
--- NOTE | 2017-03-10 10:09 | PQF CHF ---
This form is a permanent part of the medical record Dr. Martinez, Please, clarify the chronicity and type of CHF. Patient was treated with lasix [address] Nieves. Clarification of your documentation is requested to better reflect the severity of illness and intensity of treatment of your patient. Indicators present [X Diagnosis of CHF and/or history of CHF [] BNP > 200 [] Imaging Finding of Pulmonary Edema /Pleural Effusions [] Fluid/Volume Overload [X] Pitting edema [] Ejection Fraction < 40% (Indicative of Systolic Heart Failure) [] Ejection Fraction > 40% (Indicative of Diastolic Heart Failure) [] Dyspnea / Orthopenea / Paroxysmal Nocturnal Dyspnea [X] Other: Location in the medical record that reflects the above clinical findings: [03/[address] NIEVES.] Treatment Provided: [] PHYSICIAN'S RESPONSE Based on your medical judgment of the clinical indicators outlined above, are you treating this patient for a known or suspected: [] Acute CHF [] Systolic [] Diastolic [] Combined [x] Chronic CHF [] Systolic [x] Diastolic [] Combined [] Acute on Chronic CHF []Systolic [] Diastolic [] Combined [] CHF due hypertension [] Acute systolic []Chronic systolic [] Acute/ chronic systolic [] Other, please indicate: [] [] If Unable to Determine, please check the box, sign and date. Present On Admission (POA) Indicator: [x] Present at the time of admission [] Not present at the time of admission [] Clinically Undetermined In responding to this query, please exercise your independent professional judgment. The fact that a question is asked does not imply that any particular answer is desired or expected. Thank you for your clarification on this documentation. If you have any questions please call:[ ] * Thank you, [ ] receiving specialist RAUL
--- NOTE | 2017-04-03 08:54 | CP.PCM.DIS ---
Provider - Provider Date of Admission: 03/06/17 15:18 Attending physician: Niki Martinez MD Time Spent in preparation of Discharge (in minutes): 45 Hospital Course - Lab Results Lab Results: Micro Results 03/04/17 Unknown Urine,Catheterized Urine Culture - Final Escherichia Coli Most Recent Lab Values WBC 8.6 K/uL (4.8-10.8) 03/07/17 06:33 RBC 4.38 Mil/uL (3.80-5.20) 03/07/17 06:33 Hgb 11.7 g/dL (11.0-16.0) 03/07/17 06:33 Hct 35.5 % (34.0-47.0) 03/07/17 06:33 MCV 81.1 fL (81.0-99.0) 03/07/17 06:33 MCH 26.7 pg (27.0-31.0) L 03/07/17 06:33 MCHC 32.9 g/dL (33.0-37.0) L 03/07/17 06:33 RDW 14.3 % (11.5-14.5) 03/07/17 06:33 Plt Count 290 K/uL (130-400) 03/07/17 06:33 MPV 9.2 fL (7.2-11.7) 03/07/17 06:33 Neut % (Auto) 58.3 % (50.0-75.0) 03/06/17 07:15 Lymph % (Auto) 27.5 % (20.0-40.0) 03/06/17 07:15 [place] % (Auto) 9.5 % (0.0-10.0) 03/06/17 07:15 Eos % (Auto) 4.1 % (0.0-4.0) H 03/06/17 07:15 Baso % (Auto) 0.6 % (0.0-2.0) 03/06/17 07:15 Neut # 4.4 K/uL (1.8-7.0) 03/06/17 07:15 Lymph # 2.1 K/uL (1.0-4.3) 03/06/17 07:15 [place] # 0.7 K/uL (0.0-0.8) 03/06/17 07:15 Eos # 0.3 K/uL (0.0-0.7) 03/06/17 07:15 Baso # 0.0 K/uL (0.0-0.2) 03/06/17 07:15 D-Dimer, Quantitative 764 ng/mlDDU (0-243) H 03/05/17 17:17 Sodium 138 mmol/L (132-148) 03/07/17 06:33 Potassium 3.8 mmol/L (3.6-5.2) 03/07/17 06:33 Chloride 101 mmol/L (98-107) 03/07/17 06:33 Carbon Dioxide 22 mmol/L (22-30) 03/07/17 06:33 Anion Gap 18 (10-20) 03/07/17 06:33 BUN 31 mg/dL (7-17) H 03/07/17 06:33 Creatinine 0.9 MG/DL (0.7-1.2) 03/07/17 06:33 Est GFR ( Amer) > 60 03/07/17 06:33 Est GFR (Non-Af Amer) > 60 03/07/17 06:33 POC Glucose (mg/dL) 328 mg/dL (65-110) H 03/09/17 16:42 Random Glucose 273 mg/dL (65-105) H 03/07/17 06:33 Calcium 10.0 mg/dl (8.6-10.4) 03/07/17 06:33 Total Bilirubin 0.5 mg/dL (0.2-1.3) 03/06/17 07:15 AST 22 U/L (14-36) 03/06/17 07:15 ALT 22 U/L (9-52) 03/06/17 07:15 Alkaline Phosphatase 76 U/L (38-126) 03/06/17 07:15 Troponin I 0.0180 ng/mL (0.00-0.120) 03/04/17 21:58 Total Protein 6.4 g/dL (6.3-8.3) 03/06/17 07:15 Albumin 3.2 g/dL (3.5-5.0) L 03/06/17 07:15 Globulin 3.2 gm/dL (2.2-3.9) 03/06/17 07:15 Albumin/Globulin Ratio 1.0 (1.0-2.1) 03/06/17 07:15 Urine Color Yellow (YELLOW) 03/04/17 21:34 Urine Clarity Hazy (Clear) 03/04/17 21:34 Urine pH 5.0 (5.0-8.0) 03/04/17 21:34 Ur Specific [place] 1.014 (1.003-1.030) 03/04/17 21:34 Urine Protein Negative mg/dL (NEGATIVE) 03/04/17 21:34 Urine Glucose (UA) Normal mg/dL (Normal) 03/04/17 21:34 Urine Ketones Negative mg/dL (NEGATIVE) 03/04/17 21:34 Urine Blood 1+ (NEGATIVE) H 03/04/17 21:34 Urine Nitrate Negative (NEGATIVE) 03/04/17 21:34 Urine Bilirubin Negative (NEGATIVE) 03/04/17 21:34 Urine Urobilinogen Normal mg/dL (0.2-1.0) 03/04/17 21:34 Ur Leukocyte Esterase 3+ Cyndi/uL (Negative) H 03/04/17 21:34 Urine WBC (Auto) 61 /hpf (0-5) H 03/04/17 21:34 Urine RBC (Auto) 1 /hpf (0-3) 03/04/17 21:34 Urine Bacteria Many (<OCC) H 03/04/17 21:34 Hyaline Casts 11-20 /lpf (0-2) H 03/04/17 21:34 - Hospital Course Hospital Course: 66-year-old female with history of congestive heart failure, COPD, hypertension hypercholesterolemia, CAD, status post a coronary artery bypass grafting. Patient was recently hospitalized with altered mental status. At the time patient was having significant pain, seen by pain specialist. During the time patient was sent to the rehabilitation. When I went to see the patient last night, she was having significant altered mental status, she was not responding appropriately. She was sitting up in the chair. She was drowsy, sleepy. The labs also done in the morning yesterday detention showing evidence of dehydration, and the suspected hypercalcemia, she was complaining of chest pain on top of that. I spoke to the family, decided to send the patient to the emergency room again. In the emergency room patient was evaluated, and was given IV fluid antibiotic and admitted to the medical floor. Today patient is more awake and responding. She's not in any distress. She denies any nausea vomiting, but the poor appetite noted. Weakness on the low your back pain noted Past medical history: Arthritis, lumbosacral pain, history of epidural injection, hypertension high cholesterol, sleep apnea, history of CAD, status post a CABG Allergic to sulfa Personal history: Nonsmoker nonalcoholic Medications reviewed in Family history noncontributory On examination: Patient is not in any distress. No distress noted Chest good air entry bilaterally regular heart sound abdomen soft and nontender extremities 1+ edema Labs reviewed Showing evidence of anion gap. Surgical history of dehydration Urinalysis suspicious for UTI On antibiotic Assessment and recommendation: 66-year-old female with history of CHF COPD hypertension high cholesterol CAD status post CABG. History of chronic lower back pain, complicated with the poor walking capacity. History present epidural injection. Obesity. Associated with hypoventilation, and the sleep apnea. Now having cough. Continue the bronchodilating her antibiotic cardiology, infectious disease evaluation. Will follow the patient Patient in the emergency room was treated with IV fluid. Admitted to the hospital. There was a suspected urinary tract infection also, started on antibiotic. Patient started on physical therapy, and he able to mumble 8. And she was feeling much better in her overall symptoms. Finally stable for discharge to the rehabilitation Final diagnosis: Urinary tract infection Severe dehydration Hypercalcemia Altered mental status, nonspecific secondary to metabolic Diabetes hypertension and hypercholesteremia coronary artery disease COPD. Patient will be discharged to rehabilitation. Medications reconciled. We'll be continued and will follow the patient Discharge Exam - Head Exam Head Exam: NORMOCEPHALIC Discharge Plan - Discharge Medications Prescriptions: Ciprofloxacin HCl [Cipro] 500 mg PO BID 7 Days tablet Pantoprazole [Protonix EC Tab] 40 mg PO DAILY #30 ect - Follow Up Plan Condition: FAIR Disposition: REHAB FACILITY/REHAB UNIT Instructions: Heart Failure (DC), Coronary Artery Disease (DC), Dehydration (DC ), Urinary Tract Infection in Women (DC), Heart Healthy Diet (DC), Altered Mental Status (GEN) Additional Instructions: Please call Dr. Martinez upon patient arrival to the facility Continue medication as per Med rec. Please f/u with Dr. Ruiz/ [facility] office for f/u after discharge from [facility] Referrals: Niki Martinez MD [Staff Provider] - Mark Calles MD [Staff Provider] - Kobe Torrez MD [Staff Provider] -
--- NOTE | 2017-04-03 08:54 | CP.PCM.PN ---
Subjective - Date & Time of Evaluation Date of Evaluation: 03/07/17 Time of Evaluation: 09:14 - Subjective Subjective: Patient today still feeling much better. She is able to comprehend, alert and awake now. Still feeling weakness. Tiredness noted. Vital signs reviewed Chest good air entry. Clinical examination is unremarkable otherwise, acceptable edema bilaterally in the legs noted Diagnosis: Altered mental status Urinary tract infection Dehydration. Continue the current treatment. Objective - Vital Signs/Intake and Output Vital Signs (last 24 hours): Temp Pulse Resp BP Pulse Ox 97.9 F 94 H 20 125/87 99 03/09/17 15:09 03/09/17 15:09 03/09/17 15:09 03/09/17 16:30 03/09/17 15:09 - Labs Labs: 03/07/17 06:33 03/07/17 06:33
--- NOTE | 2017-04-03 08:55 | CP.PCM.PN ---
Subjective - Date & Time of Evaluation Date of Evaluation: 03/08/17 Time of Evaluation: 09:15 - Subjective Subjective: She is more stable. Awake and responding. Able to stand up, walking. No diarrhea noted. Leg swelling noted Vital signs reviewed No neck vein distention noted Chest good air entry bilaterally, no wheezing or rales noted CVS regular heart sound, no murmur noted Abdomen soft, nontender. Edema bilateral PER DIEM INTERPRETER alert awake oriented 3, no functional neurological deficit Assessment and recommendation: 66 female urinary tract infection dehydration. We'll continue the physical therapy. We will want to discharge her to the rehabilitation tomorrow. Objective - Vital Signs/Intake and Output Vital Signs (last 24 hours): Temp Pulse Resp BP Pulse Ox 97.9 F 94 H 20 125/87 99 03/09/17 15:09 03/09/17 15:09 03/09/17 15:09 03/09/17 16:30 03/09/17 15:09 - Labs Labs: 03/07/17 06:33 03/07/17 06:33
== END 2017-03-09 19:15 | DRG 690 ==
LOC: C.ER 21:04 → C.9E 22:35 → C.3T 22:35 → C.5T 03-05 18:23 → C.6T 03-05 18:36 → OBSVTOIN 03-06 15:18
PROVIDERS: ADMIT Internal Medicine; ATTEND Internal Medicine
DX: N39.0 Urinary tract infection, site not specified (principal); E11.22 Type 2 diabetes mellitus with diabetic chronic kidney disease; I13.0 Hypertensive heart and chronic kidney disease with heart failure and stage 1 through stage 4 chronic kidney disease, or unspecified chronic kidney disease; I50.32 Chronic diastolic (congestive) heart failure; E11.65 Type 2 diabetes mellitus with hyperglycemia; J44.9 Chronic obstructive pulmonary disease, unspecified; E86.0 Dehydration; B96.20 Unspecified Escherichia coli [E. coli] as the cause of diseases classified elsewhere; E66.9 Obesity, unspecified; E78.00 Pure hypercholesterolemia, unspecified; F32.9 Major depressive disorder, single episode, unspecified; K59.09 Other constipation; I25.10 Atherosclerotic heart disease of native coronary artery without angina pectoris; G47.30 Sleep apnea, unspecified; I44.7 Left bundle-branch block, unspecified; K29.70 Gastritis, unspecified, without bleeding; N18.9 Chronic kidney disease, unspecified; Z86.73 Personal history of transient ischemic attack (TIA), and cerebral infarction without residual deficits; Z88.2 Allergy status to sulfonamides; Z95.1 Presence of aortocoronary bypass graft; M54.5 Low back pain; G89.29 Other chronic pain; E83.52 Hypercalcemia

== ENCOUNTER 2017-08-24 07:01 | Day surgery (SDC) | payer MEDICARE, MEDICAID ==
[2017-08-24] MEDS ORDERED: Midazolam 2 MG/2 ML VIAL ONE (08:39)
[2017-08-24] MEDS ORDERED: Propofol 10 mg/ml Inj (20 ML) ONE (08:39)
[2017-08-24] MEDS ORDERED: Lactated Ringer's 1,000 ML IV ONE (08:55)
[2017-08-24 10:02] VITALS: TEMP 97.7; O2SAT 3
[2017-08-24 11:17] VITALS: BP 100/56; PULSE 80; RESP 16
== END 2017-08-24 11:00 | disposition home or self-care (01) ==
LOC: C.ENDO 07:01
PROVIDERS: ATTEND Internal Medicine Gastroenterology
DX: K29.50 Unspecified chronic gastritis without bleeding (principal); Z12.11 Encounter for screening for malignant neoplasm of colon; D12.2 Benign neoplasm of ascending colon; D12.3 Benign neoplasm of transverse colon; K57.30 Diverticulosis of large intestine without perforation or abscess without bleeding; K62.5 Hemorrhage of anus and rectum
CPT/HCPCS: 43239; 45380; 45385; 82948; 88305; 88342; J2001; J2250; J2704; J7120

== ENCOUNTER 2018-07-30 19:17 | Inpatient (IN) | payer MEDICARE, MEDICAID ==
[2018-07-30 19:17] VITALS: BMI 42.4
--- NOTE | 2018-07-30 19:47 | C.PDOC ---
History Of Present Illness Patient BIBA for persistent left sided chest pain since monday, radiating to left upper back and axilla. She describes the pain as sharp, constant, does not worsen with deep breaths. Patient denies SOB, palpitations, cough, fever, abdominal pain, nausea/vomiting, diarrhea. Patient given ASA and SL nitro in the field, no improvement in CP with nitro. PMHx: CAD, CABG (quadruple), CHF, COPD, HTN, DM II, hyperlipidemia, WILFRID PMHX- Dr. Martinez Cardio- Dr. Torres Time Seen by Provider: 07/30/18 19:25 Chief Complaint (Nursing): Chest Pain History Per: Patient History/Exam Limitations: no limitations Onset/Duration Of Symptoms: Days (4) Current Symptoms Are (Timing): Still Present Severity: Moderate Quality: Sharp Past Medical History Reviewed: Historical Data, Nursing Documentation, Vital Signs Vital Signs: Last Vital Signs Temp 97.8 F 07/30/18 19:27 Pulse 74 07/30/18 19:30 Resp 14 07/30/18 19:30 BP 156/75 H 07/30/18 19:30 Pulse Ox 98 07/30/18 19:30 - Medical History PMH: Arthritis, CHF, COPD, HTN, Hypercholesterolemia, Sleep Apnea Surgical History: CABG, Endoscopy Denies: Pacemaker - [facility] Procedures TONSILLECTOMY (01/14/98) Family History: States: No Known Family Hx - Social History Hx Tobacco Use: No Hx Alcohol Use: No Hx Substance Use: No - Immunization History Hx Tetanus Toxoid Vaccination: No Hx Influenza Vaccination: No Hx Pneumococcal Vaccination: No Review Of Systems Constitutional: Negative for: Fever, Chills Cardiovascular: Positive for: Chest Pain. Negative for: Palpitations Respiratory: Negative for: Cough, Shortness of Breath Gastrointestinal: Negative for: Nausea, Vomiting, Abdominal Pain Skin: Negative for: Rash Neurological: Negative for: Weakness, Numbness, Headache, Dizziness Physical Exam - Physical Exam Appears: Well, Non-toxic, In Acute Distress (in mild pain, speaking in full sentences) Skin: Normal Color, Warm, Dry Head: Normacephalic Eye(s): bilateral: Normal Inspection Oral Mucosa: Moist Cardiovascular: Rhythm Regular, No Murmur Respiratory: Normal Breath Sounds, No Rales, No Rhonchi, No Wheezing Gastrointestinal/Abdominal: Normal Exam, Bowel Sounds, Soft, No Tenderness Extremity: Normal ROM, Pedal Edema (+2 pitting edema B/L LEs), No Calf Tenderness Pulses: Left Dorsalis Pedis: Normal, Right Dorsalis Pedis: Normal Neurological/Psych: Oriented x3 ED Course And Treatment - Laboratory Results Result Diagrams: 08/03/18 11:35 08/03/18 11:35 ECG: Interpreted By Me, Viewed By Me (sinus rhythm 86 bpm with first degree AV block left axis deviation, nonspecific IV block, Q waves II, III, aVL, V2-V6) ECG Interpretation: Abnormal O2 Sat by Pulse Oximetry: 98 (RA) Pulse Ox Interpretation: Normal - Radiology CXR: Interpreted by Me, Viewed By Me CXR Interpretation: Yes: No Acute Disease. No: Infiltrates Progress Note: Blood work, EKG, CXR ordered and reviewed. Patient given IV morphine 2mg. - Physician Consult Information Physician Contacted: Niki Martinez Outcome Of Conversation: Discussed patient with PMD, agrees with obs telemetry for chest pain, r/o ACS. Disposition - Disposition Disposition: HOSPITALIZED Disposition Time: 21:09 Condition: STABLE - Clinical Impression Clinical Impression: Chest pain Decision To Admit - Pt Status Changed To: Hospital Disposition Of: Observation - . Bed Request Type: Telemetry Admitting Physician: Niki Martinez Patient Diagnosis: Chest pain
[2018-07-30 19:49] LABS: BASO # 0.1 K/uL (0.0-0.2); BASO % 0.8 % (0.0-2.0); EOS # 0.2 K/uL (0.0-0.7); HEMOGLOBIN 10.7 g/dL (11.0-16.0); LYMPH % 26.4 % (20.0-40.0); MEAN CORPUSCULAR HEMOGLOBIN 24.7 pg (27.0-31.0); MEAN CORPUSCULAR HGB CONC 32.3 g/dL (33.0-37.0); MEAN PLATELET VOLUME 8.3 fL (7.2-11.7); MONO # 0.8 K/uL (0.0-0.8); NEUT # 4.6 K/uL (1.8-7.0); NEUT % 59.8 % (50.0-75.0); NRBC % 0.3 % (0.0-2.0); RBC 4.33 Mil/uL (3.80-5.20); RED CELL DISTRIBUTION WIDTH 14.9 % (11.5-14.5); WHITE BLOOD COUNT 7.6 K/uL (4.8-10.8)
[2018-07-30 19:59] LABS: PROTHROMBIN TIME 10.9 SECONDS (9.7-12.2)
[2018-07-30 20:18] LABS: ALB/GLOB RATIO 1.5 (1.0-2.1); ALBUMIN 4.1 g/dL (3.5-5.0); BLOOD UREA NITROGEN 20 mg/dL (7-17); CALCIUM 9.1 mg/dl (8.6-10.4); GFR NON-AFRICAN AMERICAN > 60
[2018-07-30 20:25] LABS: ALT/SGPT 23 U/L (9-52); AST/SGOT 53 U/L (14-36)
[2018-07-30 20:28] LABS: MEAN CELL VOLUME 76.4 fL (81.0-99.0)
[2018-07-30 20:30] LABS: B-TYPE NATRIURETIC PEPTIDE 163 pg/mL (0-900)
[2018-07-30 20:37] LABS: CK-MB < 0.22 ng/mL (0.0-3.38)
[2018-07-30] MEDS ORDERED: Morphine 4 MG/ML VIAL ONE (21:22)
[2018-07-31] MEDS: Albuterol-Ipratrop 3 mg / 0.5 (3 ml) UD INH SCH ×5 (03:31→20:58)
[2018-07-31 06:15] LABS: CK-MB 0.76 ng/mL (0.0-3.38)
[2018-07-31] MEDS ORDERED: Tramadol 25 mg PO ONE (08:02)
[2018-07-31] MEDS ORDERED: Nitroglycerin 2% Ointment Foilpak UD TOP ONE (08:04)
[2018-07-31] MEDS: (Novolin R) Insulin Human Regular 100 units/ml vial SC SCH ×4 (08:45→21:41)
[2018-07-31] MEDS: diltiaZEM 180 mg/24 Hours CD Cap PO SCH ×2 (10:24→10:38)
[2018-07-31] MEDS: Pantoprazole 40 mg EC Tab PO SCH ×2 (10:24→10:37)
[2018-07-31] MEDS: (Novolog) Insulin Aspart, Recombinant 100 u/ml 10 ml vial SC SCH ×3 (10:25→13:10)
--- NOTE | 2018-07-31 11:21 | CP.PCM.CON ---
History of Present Illness - History of Present Illness History of Present Illness: Patient known to me from office PMHX: CAD CABG 2002 and subsequent need for PCI 2003 and 2004, chronic LBBB and recent stress test 11/2017 with apical and septal infarct no reversible ischemia. She also is known to have low-normal range EF 45-50%. Most notably last A1c was 11.7 as of 02/2018 and LDL 70 Patient BIBA for persistent left sided chest pain since monday, radiating to left upper back and axilla. She describes the pain as sharp, constant, does not worsen with deep breaths. Patient denies SOB, palpitations, cough, fever, abdominal pain, nausea/vomiting, diarrhea. Patient given ASA and SL nitro in the field, no improvement in CP with nitro. Review of Systems - Review of Systems All systems: reviewed and no additional remarkable complaints except Past Patient History - Past Medical History & Family History Past Medical History?: Yes - Past Social History Smoking Status: Never Smoked - CARDIAC Hx Congestive Heart Failure: Yes Hx Hypercholesterolemia: Yes Hx Hypertension: Yes Hx Pacemaker: No - PULMONARY Hx Chronic Obstructive Pulmonary Disease (COPD): Yes Hx Sleep Apnea: Yes - NEUROLOGICAL Hx Neurological Disorder: No - HEENT Hx HEENT Problems: No - RENAL Hx Chronic Kidney Disease: No - ENDOCRINE/METABOLIC Hx Endocrine Disorders: Yes Hx Diabetes Mellitus Type 2: Yes Other/Comment: "PITUITARY ISSUES" - HEMATOLOGICAL/ONCOLOGICAL Hx Blood Disorders: No Hx Blood Transfusions: No Hx Blood Transfusion Reaction: No - INTEGUMENTARY Hx Dermatological Problems: No - MUSCULOSKELETAL/RHEUMATOLOGICAL Hx Arthritis: Yes - GASTROINTESTINAL Hx Gastrointestinal Disorders: Yes Hx Bowel Surgery: No Other/Comment: Gastric sleeve - GENITOURINARY/GYNECOLOGICAL Hx Genitourinary Disorders: Yes Hx Incontinence: Yes - PSYCHIATRIC Hx Substance Use: No - SURGICAL HISTORY Hx Coronary Artery Bypass Graft: Yes - ANESTHESIA Hx Anesthesia: Yes Hx Anesthesia Reactions: Yes (ITCHiness) Hx Malignant Hyperthermia: No Meds Allergies/Adverse Reactions: Allergies Allergy/AdvReac Type Severity Reaction Status Date / Time Sulfa (Sulfonamide Allergy Intermediate RASH Verified 07/30/18 19:33 Antibiotics) - Medications Medications: Current Medications Albuterol/Ipratropium (Duoneb 3 Mg/0.5 Mg (3 Ml) Ud) 3 ml INH RQ6 [facility] Last Admin: 07/31/18 08:00 Dose: Not Given Aspirin (Ecotrin) 81 mg PO DAILY [facility] Last Admin: 07/31/18 10:38 Dose: 81 mg Diltiazem HCl (Cardizem Cd) 180 mg PO DAILY [facility] Last Admin: 07/31/18 10:38 Dose: Not Given Heparin Sodium (Porcine) (Heparin) 5,000 units SC Q8 [facility] Last Admin: 07/31/18 06:40 Dose: 5,000 units Insulin Aspart (Novolog) 25 unit SC TID [facility] Last Admin: 07/31/18 10:39 Dose: 25 units Insulin Human Regular (Novolin R) 0 unit SC ACHS [facility]; Protocol Last Admin: 07/31/18 08:45 Dose: 2 units Losartan Potassium (Cozaar) 25 mg PO DAILY [facility] Last Admin: 07/31/18 10:38 Dose: 25 mg Metoprolol Tartrate (Lopressor) 100 mg PO DAILY [facility] Last Admin: 07/31/18 10:38 Dose: 100 mg Pantoprazole Sodium (Protonix Ec Tab) 40 mg PO DAILY [facility] Last Admin: 07/31/18 10:37 Dose: 40 mg Rosuvastatin Calcium (Crestor) 10 mg PO QPM [facility] Physical Exam - Constitutional Appears: No Acute Distress - Head Exam Head Exam: ATRAUMATIC, NORMAL INSPECTION, NORMOCEPHALIC - Eye Exam Eye Exam: EOMI, Normal appearance. absent: Scleral icterus - ENT Exam ENT Exam: Mucous Membranes Moist, Normal Oropharynx - Neck Exam Neck exam: Positive for: Full Rom. Negative for: Tenderness, Thyromegaly - Respiratory Exam Respiratory Exam: Clear to Auscultation Bilateral, NORMAL BREATHING PATTERN. absent: Wheezes - Cardiovascular Exam Cardiovascular Exam: REGULAR RHYTHM, +S1, +S2. absent: Gallop Additional comments: CABG scar healed - GI/Abdominal Exam GI & Abdominal Exam: Normal Bowel Sounds, Soft. absent: Tenderness - Extremities Exam Extremities exam: Positive for: pedal edema (Trace edema in legs B/L), pedal pulses present. Negative for: calf tenderness - Neurological Exam Neurological exam: Alert, CN II-XII Intact, Oriented x3 - Psychiatric Exam Psychiatric exam: Normal Affect, Normal Mood - Skin Skin Exam: Normal Color, Warm Results - Vital Signs Recent Vital Signs: Last Vital Signs Temp 98.8 F 07/31/18 08:00 Pulse 85 07/31/18 08:10 Resp 20 07/31/18 08:00 BP 156/72 H 07/31/18 08:00 Pulse Ox 96 07/31/18 08:00 - Labs Result Diagrams: 07/30/18 19:45 07/30/18 19:45 Labs: Laboratory Results - last 24 hr 07/30/18 07/30/18 07/30/18 19:40 19:45 19:45 WBC 7.6 RBC 4.33 Hgb 10.7 L Hct 33.1 L MCV 76.4 L D MCH 24.7 L MCHC 32.3 L RDW 14.9 H Plt Count 330 MPV 8.3 Neut % (Auto) 59.8 Lymph % (Auto) 26.4 [place] % (Auto) 10.0 Eos % (Auto) 3.0 Baso % (Auto) 0.8 Neut # (Auto) 4.6 Lymph # (Auto) 2.0 [place] # (Auto) 0.8 Eos # (Auto) 0.2 Baso # (Auto) 0.1 PT 10.9 INR 1.0 APTT 27 Sodium Potassium Chloride Carbon Dioxide Anion Gap BUN Creatinine Est GFR ( Amer) Est GFR (Non-Af Amer) POC Glucose (mg/dL) 215 H Random Glucose Calcium Total Bilirubin AST ALT Alkaline Phosphatase Total Creatine Kinase CK-MB (Mass) Troponin I NT-Pro-B Natriuret Pep Total Protein Albumin Globulin Albumin/Globulin Ratio 07/30/18 07/30/18 07/31/18 19:45 22:57 05:43 WBC RBC Hgb Hct MCV MCH MCHC RDW Plt Count MPV Neut % (Auto) Lymph % (Auto) [place] % (Auto) Eos % (Auto) Baso % (Auto) Neut # (Auto) Lymph # (Auto) [place] # (Auto) Eos # (Auto) Baso # (Auto) PT INR APTT Sodium 136 Potassium 4.1 Chloride 101 Carbon Dioxide 28 Anion Gap 11 BUN 20 H Creatinine 0.9 Est GFR ( Amer) > 60 Est GFR (Non-Af Amer) > 60 POC Glucose (mg/dL) 142 H Random Glucose 207 H D Calcium 9.1 Total Bilirubin 0.5 AST 53 H ALT 23 Alkaline Phosphatase 95 Total Creatine Kinase 47 42 CK-MB (Mass) < 0.22 0.76 Troponin I < 0.0120 < 0.0120 NT-Pro-B Natriuret Pep 163 Total Protein 6.9 Albumin 4.1 Globulin 2.8 Albumin/Globulin Ratio 1.5 07/31/18 06:36 WBC RBC Hgb Hct MCV MCH MCHC RDW Plt Count MPV Neut % (Auto) Lymph % (Auto) [place] % (Auto) Eos % (Auto) Baso % (Auto) Neut # (Auto) Lymph # (Auto) [place] # (Auto) Eos # (Auto) Baso # (Auto) PT INR APTT Sodium Potassium Chloride Carbon Dioxide Anion Gap BUN Creatinine Est GFR ( Amer) Est GFR (Non-Af Amer) POC Glucose (mg/dL) 204 H Random Glucose Calcium Total Bilirubin AST ALT Alkaline Phosphatase Total Creatine Kinase CK-MB (Mass) Troponin I NT-Pro-B Natriuret Pep Total Protein Albumin Globulin Albumin/Globulin Ratio Assessment & Plan - Assessment and Plan (Free Text) Assessment: CP - Atypical; non cardiac - CO ruled out - ECHO images directly viewed by me: Low-normal LVEF, unchanged from my office echo LVH, mod LAE, mild PASP ~40mmHG, no MS or Mild MR, TR - EKG: Known chronic LBBB - cont medical therapy with ASA, statin and beta-tanya - add ranexa 500 BID HTN - initially high, now better - diltiazem 180, metoprolol 100, losartan 25 - low salt diet -> EDEMA in legs: resume bumetanide 2mg daily - dvt prophylaxis LIPIDS - cont crestor LBBB - chronic unchanged DM - uncontrolled - consider neuropathy as cause of sxs - Date & Time Date: 07/31/18 Time: 14:24
[2018-07-31] MEDS ORDERED: Dextrose 50% SYRINGE Inj (50 ml) IV STA (13:35)
--- NOTE | 2018-07-31 13:48 | RAD ---
Date of service: 07/30/2018 HISTORY: CP COMPARISON: Comparison made with chest radiograph 03/05/2017. FINDINGS: LUNGS: No active pulmonary disease. PLEURA: No significant pleural effusion identified, no pneumothorax apparent. CARDIOVASCULAR: No aortic atherosclerotic calcification present. Sternotomy wires and CABG clips again noted. Heart remains mildly enlarged. No pulmonary vascular congestion. OSSEOUS STRUCTURES: No significant abnormalities. VISUALIZED UPPER ABDOMEN: Normal. OTHER FINDINGS: None. IMPRESSION: No active disease. Cardiomegaly.
[2018-07-31] MEDS ORDERED: (Novolog) Insulin Aspart, Recombinant 100 u/ml 10 ml vial SC SCH (16:30)
[2018-07-31] MEDS ORDERED: Lidocaine 5% Patch TD ONE (19:55)
[2018-08-01] MEDS: Albuterol-Ipratrop 3 mg / 0.5 (3 ml) UD INH SCH ×4 (01:25→21:19)
[2018-08-01 07:28] LABS: BASO % 0.6 % (0.0-2.0); EOS # 0.1 K/uL (0.0-0.7); EOS % 2.3 % (0.0-4.0); LYMPH # 1.1 K/uL (1.0-4.3); LYMPH % 23.3 % (20.0-40.0); MEAN CORPUSCULAR HEMOGLOBIN 25.4 pg (27.0-31.0); MEAN CORPUSCULAR HGB CONC 32.5 g/dL (33.0-37.0); MEAN PLATELET VOLUME 8.5 fL (7.2-11.7); MONO # 0.6 K/uL (0.0-0.8); MONO % 12.5 % (0.0-10.0); NEUT # 2.8 K/uL (1.8-7.0); NEUT % 61.3 % (50.0-75.0); RBC 4.33 Mil/uL (3.80-5.20); RED CELL DISTRIBUTION WIDTH 14.7 % (11.5-14.5); WHITE BLOOD COUNT 4.6 K/uL (4.8-10.8)
[2018-08-01] MEDS: (Novolin R) Insulin Human Regular 100 units/ml vial SC SCH ×4 (07:31→21:10)
[2018-08-01 07:38] LABS: ALB/GLOB RATIO 1.3 (1.0-2.1); ALBUMIN 3.8 g/dL (3.5-5.0); ALT/SGPT 31 U/L (9-52); AST/SGOT 46 U/L (14-36); BLOOD UREA NITROGEN 14 mg/dL (7-17); CALCIUM 9.2 mg/dl (8.6-10.4); GFR NON-AFRICAN AMERICAN > 60
[2018-08-01] MEDS ORDERED: Oxycodone/Acetaminophen 5/325 mg Tab PO ONE (08:00)
[2018-08-01] MEDS: diltiaZEM 180 mg/24 Hours CD Cap PO SCH (09:42)
[2018-08-01] MEDS: Pantoprazole 40 mg EC Tab PO SCH (09:43)
--- NOTE | 2018-08-01 13:18 | CP.PCM.PN ---
Subjective - Date & Time of Evaluation Date of Evaluation: 08/01/18 Time of Evaluation: 15:30 - Subjective Subjective: Patient with c/o of focal tenderness to outer/infraxillary portion of pectoral muscle on the left c/w spasm No agninal features or decomensated CHF features No N/V Objective - Vital Signs/Intake and Output Vital Signs (last 24 hours): Temp Pulse Resp BP Pulse Ox 98.4 F 72 20 125/72 99 08/01/18 08:00 08/01/18 12:00 08/01/18 08:00 08/01/18 08:00 08/01/18 12:00 Intake and Output: 08/01/18 08/01/18 06:59 18:59 Intake Total 450 Balance 450 - Medications Medications: Current Medications Albuterol/Ipratropium (Duoneb 3 Mg/0.5 Mg (3 Ml) Ud) 3 ml INH RQ6 [facility] Last Admin: 08/01/18 07:30 Dose: 3 ml Aspirin (Ecotrin) 81 mg PO DAILY [facility] Last Admin: 08/01/18 09:43 Dose: 81 mg Diltiazem HCl (Cardizem Cd) 180 mg PO DAILY [facility] Last Admin: 08/01/18 09:42 Dose: 180 mg Heparin Sodium (Porcine) (Heparin) 5,000 units SC Q8 [facility] Last Admin: 08/01/18 13:01 Dose: 5,000 units Insulin Aspart (Novolog) 25 unit SC TID [facility] Last Admin: 07/31/18 13:10 Dose: Not Given Insulin Human Regular (Novolin R) 0 unit SC ACHS [facility]; Protocol Last Admin: 08/01/18 12:26 Dose: 2 units Losartan Potassium (Cozaar) 25 mg PO DAILY [facility] Last Admin: 08/01/18 09:43 Dose: 25 mg Metoprolol Tartrate (Lopressor) 100 mg PO DAILY [facility] Last Admin: 08/01/18 09:43 Dose: 100 mg Pantoprazole Sodium (Protonix Ec Tab) 40 mg PO DAILY [facility] Last Admin: 08/01/18 09:43 Dose: 40 mg Rosuvastatin Calcium (Crestor) 10 mg PO HS [facility] Last Admin: 07/31/18 21:53 Dose: 10 mg - Labs Labs: 08/01/18 07:09 08/01/18 07:09 PT 10.9 SECONDS (9.7-12.2) 07/30/18 19:45 INR 1.0 07/30/18 19:45 APTT 27 SECONDS (21-34) 07/30/18 19:45 - Constitutional Appears: No Acute Distress - Head Exam Head Exam: ATRAUMATIC, NORMAL INSPECTION, NORMOCEPHALIC - Eye Exam Eye Exam: EOMI, Normal appearance. absent: Scleral icterus - ENT Exam ENT Exam: Mucous Membranes Moist - Neck Exam Neck Exam: Full ROM, Normal Inspection. absent: Tenderness, Thyromegaly - Respiratory Exam Respiratory Exam: Clear to Ausculation Bilateral, NORMAL BREATHING PATTERN. absent: Rales, Rhonchi, Wheezes - Cardiovascular Exam Cardiovascular Exam: REGULAR RHYTHM, +S1, +S2. absent: Gallop, Murmur - GI/Abdominal Exam GI & Abdominal Exam: Soft. absent: Tenderness - Extremities Exam Extremities Exam: Full ROM, Normal Capillary Refill, Normal Inspection, Pedal Edema. absent: Calf Tenderness - Neurological Exam Neurological Exam: Alert, CN II-XII Intact, Oriented x3 - Psychiatric Exam Psychiatric exam: Normal Affect, Normal Mood - Skin Skin Exam: Normal Color, Warm Assessment and Plan - Assessment and Plan (Free Text) Assessment: CP - Atypical; non cardiac ---> on re-evaluation of pain today c/w muscle spasm/strain - CT ruled out - ECHO images directly viewed by me: Low-normal LVEF, unchanged from my office echo LVH, mod LAE, mild PASP ~40mmHG, no MS or Mild MR, TR - EKG: Known chronic LBBB - cont medical therapy with ASA, statin and beta-tanya - add ranexa 500 BID HTN - initially high, now better - diltiazem 180, metoprolol 100, losartan 25 - low salt diet -> EDEMA in legs: resume bumetanide 2mg daily - dvt prophylaxis LIPIDS - cont crestor LBBB - chronic unchanged DM - uncontrolled - consider neuropathy as cause of sxs I discussed in detail with patient and her son and explained that this is non- cardiac I suggest trial of anti-inflam or antispasmodic/muscle relaxants
[2018-08-01] MEDS ORDERED: Oxycodone/Acetaminophen 5/325 mg Tab PO PRN (13:42)
--- NOTE | 2018-08-01 14:00 | CARD ---
APPROVED REPORT Date of service: 07/31/2018 EXAM: Two-dimensional and M-mode echocardiogram with Doppler and color Doppler. Other Information Quality : Technically LimitedRhythm : INDICATION Cardiac Disease: CAD Congestive Heart Failure COPD tds RISK FACTORS Hypertension Hyperlipidemia Diabetes 2D DIMENSIONS IVSd0.9 (0.7-1.1cm)Aortic Root (2D)3.3 (2.0-3.7cm) LVDd5.5 (3.9-5.9cm)PWd0.9 (0.7-1.1cm) LVDs3.2 (2.5-4.0cm)FS (%) 42.1 % LVEF (%)72.6 (>50%)LVEF (Roman's)70 % IVC0.00 cm M-Mode DIMENSIONS Left Atrium (MM)5.48 (2.5-4.0cm)IVSd0.59 (0.7-1.1cm) Aortic Root3.23 (2.2-3.7cm)LVDd5.69 (4.0-5.6cm) Aortic Cusp Exc.1.63 (1.5-2.0cm)PWd0.66 (0.7-1.1cm) FS (%) 50 %LVDs2.85 (2.0-3.8cm) LVEF (%)70 (>50%) Mitral Valve MV E Hocwaadb15.5cm/sMV A Nfmnnhib284.3cm/sE/A ratio0.7 TDI Lateral E' Peak V5.96cm/sMedial E' Peak V3.19cm/sE/Lateral E'13.7 E/Medial E'25.5 Tricuspid Valve TR Peak [id number]/sTR Peak [id number] <Conclusion> Suboptimal study with both axis views difficult to interpret left ventricular ejection fraction and detailed wall motion abnormality. Grossly left ventricle ejection fraction appears to be depressed at about 40% anteroseptal wall appears severely hypokinetic. Possible inferior wall hypokinesis. Left ventricular filling pressure is increased Left atrial cavity is large There is mild mitral regurg Mild pulmonary hypertension
[2018-08-01] MEDS: Ranolazine 500 mg Extended Release Tablets PO SCH (17:19)
[2018-08-01] MEDS ORDERED: Lidocaine 5% Patch TD ONE (19:04)
[2018-08-01] MEDS: Promethazine 6.25 MG/5 ML CUP PO PRN (21:47)
[2018-08-01] MEDS: Tramadol 25 mg PO PRN (22:03)
[2018-08-02] MEDS: Albuterol-Ipratrop 3 mg / 0.5 (3 ml) UD INH SCH ×4 (01:34→20:00)
[2018-08-02 07:56] LABS: BASO % 0.5 % (0.0-2.0); EOS # 0.2 K/uL (0.0-0.7); EOS % 3.7 % (0.0-4.0); HEMOGLOBIN 10.9 g/dL (11.0-16.0); LYMPH # 0.9 K/uL (1.0-4.3); LYMPH % 21.5 % (20.0-40.0); MEAN CELL VOLUME 77.7 fL (81.0-99.0); MEAN CORPUSCULAR HEMOGLOBIN 24.3 pg (27.0-31.0); MEAN CORPUSCULAR HGB CONC 31.2 g/dL (33.0-37.0); MEAN PLATELET VOLUME 8.5 fL (7.2-11.7); MONO # 0.7 K/uL (0.0-0.8); MONO % 16.7 % (0.0-10.0); NEUT # 2.4 K/uL (1.8-7.0); NEUT % 57.6 % (50.0-75.0); RBC 4.51 Mil/uL (3.80-5.20); RED CELL DISTRIBUTION WIDTH 15.1 % (11.5-14.5); WHITE BLOOD COUNT 4.2 K/uL (4.8-10.8)
[2018-08-02] MEDS: (Novolin R) Insulin Human Regular 100 units/ml vial SC SCH ×4 (08:32→22:15)
[2018-08-02 08:37] LABS: ALB/GLOB RATIO 1.4 (1.0-2.1); ALBUMIN 3.9 g/dL (3.5-5.0); ALT/SGPT 34 U/L (9-52); AST/SGOT 64 U/L (14-36); BLOOD UREA NITROGEN 13 mg/dL (7-17); CALCIUM 8.9 mg/dl (8.6-10.4); GFR NON-AFRICAN AMERICAN > 60
[2018-08-02] MEDS: Promethazine 6.25 MG/5 ML CUP PO PRN (08:39)
[2018-08-02] MEDS: Tramadol 25 mg PO PRN ×2 (08:42→15:10)
[2018-08-02] MEDS: Ranolazine 500 mg Extended Release Tablets PO SCH ×2 (09:53→18:11)
[2018-08-02] MEDS: Pantoprazole 40 mg EC Tab PO SCH (09:53)
[2018-08-02] MEDS: diltiaZEM 180 mg/24 Hours CD Cap PO SCH (09:53)
--- NOTE | 2018-08-02 10:52 | CP.PCM.PN ---
Subjective - Date & Time of Evaluation Date of Evaluation: 08/02/18 Time of Evaluation: 10:49 - Subjective Subjective: Pain improved dec ROM both shoulders and arms No acute distress No HF or angina sx's No fevers or chills No N/V Objective - Vital Signs/Intake and Output Vital Signs (last 24 hours): Temp Pulse Resp BP Pulse Ox 99.8 F H 86 20 145/80 94 L 08/02/18 07:45 08/02/18 08:14 08/02/18 07:45 08/02/18 07:45 08/02/18 08:13 Intake and Output: 08/02/18 08/02/18 06:59 18:59 Intake Total 250 Balance 250 - Medications Medications: Current Medications Albuterol/Ipratropium (Duoneb 3 Mg/0.5 Mg (3 Ml) Ud) 3 ml INH RQ6 [facility] Last Admin: 08/02/18 07:20 Dose: Not Given Aspirin (Ecotrin) 81 mg PO DAILY [facility] Last Admin: 08/02/18 09:53 Dose: 81 mg Diltiazem HCl (Cardizem Cd) 180 mg PO DAILY [facility] Last Admin: 08/02/18 09:53 Dose: 180 mg Heparin Sodium (Porcine) (Heparin) 5,000 units SC Q8 [facility] Last Admin: 08/02/18 05:38 Dose: 5,000 units Insulin Aspart (Novolog) 25 unit SC TID [facility] Last Admin: 07/31/18 13:10 Dose: Not Given Insulin Human Regular (Novolin R) 0 unit SC ACHS [facility]; Protocol Last Admin: 08/02/18 08:32 Dose: 1 units Losartan Potassium (Cozaar) 25 mg PO DAILY [facility] Last Admin: 08/02/18 09:53 Dose: 25 mg Metoprolol Tartrate (Lopressor) 100 mg PO DAILY [facility] Last Admin: 08/02/18 09:53 Dose: 100 mg Pantoprazole Sodium (Protonix Ec Tab) 40 mg PO DAILY [facility] Last Admin: 08/02/18 09:53 Dose: 40 mg Promethazine HCl (Phenergan Syrup) 6.25 mg PO Q6H PRN PRN Reason: Cough Last Admin: 08/02/18 08:39 Dose: 6.25 mg Ranolazine (Ranexa) 500 mg PO BID [facility] Last Admin: 08/02/18 09:53 Dose: 500 mg Rosuvastatin Calcium (Crestor) 10 mg PO HS [facility] Last Admin: 08/01/18 21:19 Dose: 10 mg Tramadol HCl (Ultram) 25 mg PO BID PRN PRN Reason: Pain, moderate (4-7) Last Admin: 08/02/18 08:42 Dose: 25 mg - Labs Labs: 08/02/18 07:49 08/02/18 07:49 PT 10.9 SECONDS (9.7-12.2) 07/30/18 19:45 INR 1.0 07/30/18 19:45 APTT 27 SECONDS (21-34) 07/30/18 19:45 - Constitutional Appears: No Acute Distress - Head Exam Head Exam: ATRAUMATIC, NORMAL INSPECTION, NORMOCEPHALIC - Eye Exam Eye Exam: EOMI, Normal appearance. absent: Scleral icterus - ENT Exam ENT Exam: Mucous Membranes Moist, Normal Exam - Respiratory Exam Respiratory Exam: Clear to Ausculation Bilateral, NORMAL BREATHING PATTERN. absent: Chest Wall Tenderness (CABG scar healed), Rales, Rhonchi, Wheezes - Cardiovascular Exam Cardiovascular Exam: REGULAR RHYTHM, +S1, +S2. absent: JVD, Murmur - GI/Abdominal Exam GI & Abdominal Exam: Soft. absent: Tenderness - Extremities Exam Extremities Exam: Normal Inspection, Pedal Edema. absent: Calf Tenderness - Neurological Exam Neurological Exam: Alert, Awake, Oriented x3 - Psychiatric Exam Psychiatric exam: Normal Affect, Normal Mood - Skin Skin Exam: Normal Color, Warm Assessment and Plan - Assessment and Plan (Free Text) Assessment: CP - Atypical; non cardiac ---> on re-evaluation of pain today c/w muscle spasm/strain - CT ruled out - ECHO images directly viewed by me: Low-normal LVEF, unchanged from my office echo LVH, mod LAE, mild PASP ~40mmHG, no MS or Mild MR, TR - EKG: Known chronic LBBB - cont medical therapy with ASA, statin and beta-tanya - added ranexa 500 BID HTN - initially high, now better - diltiazem 180, metoprolol 100, losartan 25 - low salt diet -> EDEMA in legs: resume bumetanide 2mg daily - dvt prophylaxis LIPIDS - cont crestor LBBB - chronic unchanged DM - uncontrolled - consider neuropathy as cause of sxs I discussed in detail with patient and her son and explained that this is non- cardiac I suggest trial of anti-inflam or antispasmodic/muscle relaxants d/c planning
--- NOTE | 2018-08-02 11:11 | CARD ---
APPROVED REPORT Date of service: 07/31/2018 EKG Measurement Heart [id number] <Conclusion> Sinus rhythm with 1st degree AV block Left axis deviation Nonspecific intraventricular block Inferior infarct, age undetermined Anterolateral infarct, age undetermined Abnormal ECG
--- NOTE | 2018-08-02 12:28 | RAD ---
Date of service: 08/02/2018 HISTORY: cough COMPARISON: 07/30/2018 FINDINGS: LUNGS: Vague horizontal bandlike opacity left mid lung zone noted atelectasis and/or patchy infiltrate with atelectasis here a consideration. Study is rotated towards left. Left hemidiaphragm is not the silhouetted out-however there is vague increased opacity low-density overlying the left costophrenic angle more so now than before. Study is rotated-here summation of soft tissues in this patient with large body habitus is 1 consideration. Some layering fluid on this semi-erect the frontal view is another. PLEURA: Small left layering pleural fluid is 1 consideration (summation of soft tissues is another). No loss or silhouetting out of the left hemidiaphragm appreciated. No pneumothorax seen CARDIOVASCULAR: No aortic atherosclerotic calcification present. Mild-moderate cardiomegaly-similar. Tortuous thoracic aorta-similar. Midline sternotomy wires and coronary artery bypass clips in place-similar. Probable minimal pulmonary venous congestion present OSSEOUS STRUCTURES: Thoracic spondylosis. Bilateral shoulder arthrosis. The lines stenotic me. VISUALIZED UPPER ABDOMEN: Normal. OTHER FINDINGS: None. IMPRESSION: Interval horizontal bandlike opacity in the left mid lung zone-some considerations are subsegmental discoid coalescing areas of atelectasis. Patchy concomitant infiltrate here is another. Also some fluid in a fissure can also simulate this appearance given the rotated status. Interval increase density overlying the left costophrenic angle with left diaphragm margin preservation. Summation of soft tissues is 1 consideration. Layering left pleural fluid and/or fissural fluid here is another. Cardiomegaly-similar. Status post sternotomy and CABG-as above. Mild pulmonary venous congestion suspect.
--- NOTE | 2018-08-02 13:49 | CT ---
Date of service: 08/02/2018 PROCEDURE: CT Chest without contrast HISTORY: Pneumonia COMPARISON: 07/30/2018, 08/02/2018 serial chest radiographs TECHNIQUE: Contiguous axial images were obtained through the chest without intravenous contrast enhancement. Sagittal and coronal reconstructions were performed. Radiation dose: Total exam DLP = 864.78 mGy-cm. This CT exam was performed using one or more of the following dose reduction techniques: Automated exposure control, adjustment of the mA and/or kV according to patient size, and/or use of iterative reconstruction technique. FINDINGS: LUNGS: Linear atelectasis/infiltrates left lower lobe conforming to findings on recent chest radiograph. Similar findings identified in the left upper. No suspicious pulmonary nodules or masses identified. MEDIASTINUM: Unremarkable thoracic aorta. No aneurysm. No radiographic findings to suggest acute or significant cardiovascular disease. Main pulmonary artery unremarkable. No vascular congestion. Bilateral axillary and chest wall lymph nodes left more numerous than right. The preponderance are less than 1 cm. No radiographic findings to suggest acute or significant cardiovascular disease. Incidental Finding(s): Postoperative changes related to sternotomy. Atherosclerotic calcification and mural plaque present. Findings are seen throughout the aorta PLEURA: No pleural fluid. No pneumothorax. BONES: No fracture. No destructive lesion. UPPER ABDOMEN: Cholelithiasis without CT evidence of acute cholecystitis. OTHER FINDINGS: Mildly enlarged left lobe of the thyroid possible thyroid nodule. Elective thyroid ultrasound advised. IMPRESSION: Linear infiltrate/atelectasis left upper lobe, left lower lobe. Additional benign and/or incidental findings described above.
[2018-08-02] MEDS ORDERED: Nitroglycerin 2% Ointment Foilpak UD TOP PRN (19:32)
--- NOTE | 2018-08-02 19:34 | CP.PCM.PN ---
Subjective - Date & Time of Evaluation Date of Evaluation: 08/02/18 Time of Evaluation: 19:33 - Subjective Subjective: c/o chest pain cough CXR left lung atelectasisz noted but now CT chest showing no infitrate continue current treatment Objective - Vital Signs/Intake and Output Vital Signs (last 24 hours): Temp Pulse Resp BP Pulse Ox 98.4 F 66 20 138/77 99 08/02/18 15:00 08/02/18 15:00 08/02/18 15:00 08/02/18 15:00 08/02/18 15:00 - Medications Medications: Current Medications Albuterol/Ipratropium (Duoneb 3 Mg/0.5 Mg (3 Ml) Ud) 3 ml INH RQ6 [facility] Last Admin: 08/02/18 13:10 Dose: Not Given Aspirin (Ecotrin) 81 mg PO DAILY [facility] Last Admin: 08/02/18 09:53 Dose: 81 mg Diltiazem HCl (Cardizem Cd) 180 mg PO DAILY [facility] Last Admin: 08/02/18 09:53 Dose: 180 mg Heparin Sodium (Porcine) (Heparin) 5,000 units SC Q8 [facility] Last Admin: 08/02/18 15:11 Dose: 5,000 units Insulin Aspart (Novolog) 25 unit SC TID [facility] Last Admin: 07/31/18 13:10 Dose: Not Given Insulin Human Regular (Novolin R) 0 unit SC ACHS [facility]; Protocol Last Admin: 08/02/18 18:11 Dose: 2 units Lidocaine (Lidoderm) 1 ea TD DAILY [facility] Losartan Potassium (Cozaar) 25 mg PO DAILY [facility] Last Admin: 08/02/18 09:53 Dose: 25 mg Metoprolol Tartrate (Lopressor) 100 mg PO DAILY [facility] Last Admin: 08/02/18 09:53 Dose: 100 mg Pantoprazole Sodium (Protonix Ec Tab) 40 mg PO DAILY [facility] Last Admin: 08/02/18 09:53 Dose: 40 mg Promethazine HCl (Phenergan Syrup) 6.25 mg PO Q6H PRN PRN Reason: Cough Last Admin: 08/02/18 08:39 Dose: 6.25 mg Ranolazine (Ranexa) 500 mg PO BID [facility] Last Admin: 08/02/18 18:11 Dose: 500 mg Rosuvastatin Calcium (Crestor) 10 mg PO HS [facility] Last Admin: 08/01/18 21:19 Dose: 10 mg Tramadol HCl (Ultram) 25 mg PO BID PRN PRN Reason: Pain, moderate (4-7) Last Admin: 08/02/18 15:10 Dose: 25 mg - Labs Labs: 08/02/18 07:49 08/02/18 07:49 PT 10.9 SECONDS (9.7-12.2) 07/30/18 19:45 INR 1.0 07/30/18 19:45 APTT 27 SECONDS (21-34) 07/30/18 19:45
[2018-08-02] MEDS: Lidocaine 5% Patch TD SCH (19:50)
[2018-08-03] MEDS: Albuterol-Ipratrop 3 mg / 0.5 (3 ml) UD INH SCH ×3 (01:14→21:17)
[2018-08-03] MEDS: (Novolin R) Insulin Human Regular 100 units/ml vial SC SCH ×4 (09:30→22:18)
--- NOTE | 2018-08-03 10:26 | CP.PCM.PN ---
Subjective - Date & Time of Evaluation Date of Evaluation: 08/03/18 Time of Evaluation: 10:25 - Subjective Subjective: pt c/o dizziness fever chills no cough no abd pain nausea noted will get culture and labs add rocephine will f/u Objective - Vital Signs/Intake and Output Vital Signs (last 24 hours): Temp Pulse Resp BP Pulse Ox 99.1 F 96 H 20 149/87 98 08/03/18 07:48 08/03/18 07:42 08/03/18 07:42 08/03/18 07:42 08/03/18 07:42 Intake and Output: 08/03/18 08/03/18 06:59 18:59 Intake Total 440 Balance 440 - Medications Medications: Current Medications Albuterol/Ipratropium (Duoneb 3 Mg/0.5 Mg (3 Ml) Ud) 3 ml INH RQ6 [facility] Last Admin: 08/03/18 07:25 Dose: Not Given Aspirin (Ecotrin) 81 mg PO DAILY [facility] Last Admin: 08/02/18 09:53 Dose: 81 mg Diltiazem HCl (Cardizem Cd) 180 mg PO DAILY [facility] Last Admin: 08/02/18 09:53 Dose: 180 mg Heparin Sodium (Porcine) (Heparin) 5,000 units SC Q8 [facility] Last Admin: 08/03/18 05:09 Dose: 5,000 units Insulin Aspart (Novolog) 25 unit SC TID [facility] Last Admin: 07/31/18 13:10 Dose: Not Given Insulin Human Regular (Novolin R) 0 unit SC ACHS [facility]; Protocol Last Admin: 08/02/18 22:15 Dose: Not Given Lidocaine (Lidoderm) 1 ea TD DAILY [facility] Last Admin: 08/02/18 19:50 Dose: Not Given Losartan Potassium (Cozaar) 25 mg PO DAILY [facility] Last Admin: 08/02/18 09:53 Dose: 25 mg Metoprolol Tartrate (Lopressor) 100 mg PO DAILY [facility] Last Admin: 08/02/18 09:53 Dose: 100 mg Nitroglycerin (Nitro-Bid 2% Oint) 1 ea TOP Q6H PRN PRN Reason: chest pain Pantoprazole Sodium (Protonix Ec Tab) 40 mg PO DAILY [facility] Last Admin: 08/02/18 09:53 Dose: 40 mg Promethazine HCl (Phenergan Syrup) 6.25 mg PO Q6H PRN PRN Reason: Cough Last Admin: 08/02/18 08:39 Dose: 6.25 mg Ranolazine (Ranexa) 500 mg PO BID [facility] Last Admin: 08/02/18 18:11 Dose: 500 mg Rosuvastatin Calcium (Crestor) 10 mg PO HS [facility] Last Admin: 08/02/18 22:17 Dose: 10 mg Tramadol HCl (Ultram) 25 mg PO BID PRN PRN Reason: Pain, moderate (4-7) Last Admin: 08/02/18 15:10 Dose: 25 mg - Labs Labs: 08/02/18 07:49 08/02/18 07:49 PT 10.9 SECONDS (9.7-12.2) 07/30/18 19:45 INR 1.0 07/30/18 19:45 APTT 27 SECONDS (21-34) 07/30/18 19:45
[2018-08-03] MEDS: Lidocaine 5% Patch TD SCH (11:00)
[2018-08-03 11:40] LABS: BASO % 0.5 % (0.0-2.0); EOS # 0.1 K/uL (0.0-0.7); EOS % 1.4 % (0.0-4.0); HEMOGLOBIN 11.3 g/dL (11.0-16.0); LYMPH # 1.2 K/uL (1.0-4.3); LYMPH % 25.9 % (20.0-40.0); MEAN CORPUSCULAR HEMOGLOBIN 24.9 pg (27.0-31.0); MEAN CORPUSCULAR HGB CONC 32.3 g/dL (33.0-37.0); MEAN PLATELET VOLUME 8.5 fL (7.2-11.7); MONO # 0.7 K/uL (0.0-0.8); MONO % 15.5 % (0.0-10.0); NEUT # 2.6 K/uL (1.8-7.0); NEUT % 56.7 % (50.0-75.0); RBC 4.56 Mil/uL (3.80-5.20); RED CELL DISTRIBUTION WIDTH 14.8 % (11.5-14.5); WHITE BLOOD COUNT 4.5 K/uL (4.8-10.8)
[2018-08-03 12:00] LABS: ALB/GLOB RATIO 1.4 (1.0-2.1); ALBUMIN 4.1 g/dL (3.5-5.0); ALT/SGPT 35 U/L (9-52); AST/SGOT 60 U/L (14-36); BLOOD UREA NITROGEN 10 mg/dL (7-17); CALCIUM 8.8 mg/dl (8.6-10.4); GFR NON-AFRICAN AMERICAN > 60
[2018-08-03] MEDS: Pantoprazole 40 mg EC Tab PO SCH (12:23)
[2018-08-03] MEDS: Ranolazine 500 mg Extended Release Tablets PO SCH ×2 (12:23→17:34)
[2018-08-03] MEDS: diltiaZEM 180 mg/24 Hours CD Cap PO SCH (12:24)
--- NOTE | 2018-08-03 14:47 | CP.PCM.PN ---
Subjective - Date & Time of Evaluation Date of Evaluation: 08/03/18 Time of Evaluation: 14:45 - Subjective Subjective: D/C planning delayed due to fever,chills + Rash L. breast and L. axilla ? VZV No angina Objective - Vital Signs/Intake and Output Vital Signs (last 24 hours): Temp Pulse Resp BP Pulse Ox 100.2 F H 96 H 20 149/87 98 08/03/18 12:22 08/03/18 07:42 08/03/18 07:42 08/03/18 07:42 08/03/18 07:42 Intake and Output: 08/03/18 08/03/18 06:59 18:59 Intake Total 440 Balance 440 - Medications Medications: Current Medications Acetaminophen (Tylenol 325mg Tab) 650 mg PO Q6 PRN PRN Reason: Fever >100.4 F Last Admin: 08/03/18 12:22 Dose: 650 mg Albuterol/Ipratropium (Duoneb 3 Mg/0.5 Mg (3 Ml) Ud) 3 ml INH RQ6 [facility] Last Admin: 08/03/18 07:25 Dose: Not Given Aspirin (Ecotrin) 81 mg PO DAILY [facility] Last Admin: 08/03/18 12:23 Dose: 81 mg Diltiazem HCl (Cardizem Cd) 180 mg PO DAILY [facility] Last Admin: 08/03/18 12:24 Dose: 180 mg Docusate Sodium (Colace) 100 mg PO BID [facility] Last Admin: 08/03/18 12:23 Dose: 100 mg Heparin Sodium (Porcine) (Heparin) 5,000 units SC Q8 [facility] Last Admin: 08/03/18 13:42 Dose: 5,000 units Ceftriaxone Sodium 1 gm/ (Sodium Chloride) 100 mls @ 100 mls/hr IVPB Q24H [facility]; Protocol Last Admin: 08/03/18 12:26 Dose: 100 mls/hr Insulin Aspart (Novolog) 25 unit SC TID [facility] Last Admin: 07/31/18 13:10 Dose: Not Given Insulin Human Regular (Novolin R) 0 unit SC ACHS [facility]; Protocol Last Admin: 08/03/18 13:15 Dose: 3 units Lidocaine (Lidoderm) 1 ea TD DAILY [facility] Last Admin: 08/03/18 11:00 Dose: Not Given Losartan Potassium (Cozaar) 25 mg PO DAILY [facility] Last Admin: 08/03/18 12:23 Dose: 25 mg Metoprolol Tartrate (Lopressor) 100 mg PO DAILY [facility] Last Admin: 08/03/18 12:23 Dose: 100 mg Nitroglycerin (Nitro-Bid 2% Oint) 1 ea TOP Q6H PRN PRN Reason: chest pain Pantoprazole Sodium (Protonix Ec Tab) 40 mg PO DAILY [facility] Last Admin: 08/03/18 12:23 Dose: 40 mg Promethazine HCl (Phenergan Syrup) 6.25 mg PO Q6H PRN PRN Reason: Cough Last Admin: 08/02/18 08:39 Dose: 6.25 mg Ranolazine (Ranexa) 500 mg PO BID [facility] Last Admin: 08/03/18 12:23 Dose: 500 mg Rosuvastatin Calcium (Crestor) 10 mg PO HS [facility] Last Admin: 08/02/18 22:17 Dose: 10 mg Tramadol HCl (Ultram) 25 mg PO BID PRN PRN Reason: Pain, moderate (4-7) Last Admin: 08/02/18 15:10 Dose: 25 mg - Labs Labs: 08/03/18 11:35 08/03/18 11:35 PT 10.9 SECONDS (9.7-12.2) 07/30/18 19:45 INR 1.0 07/30/18 19:45 APTT 27 SECONDS (21-34) 07/30/18 19:45 - Constitutional Appears: No Acute Distress - Head Exam Head Exam: ATRAUMATIC, NORMAL INSPECTION, NORMOCEPHALIC - Eye Exam Eye Exam: EOMI, Normal appearance. absent: Scleral icterus - ENT Exam ENT Exam: Mucous Membranes Moist - Neck Exam Neck Exam: Full ROM, Normal Inspection. absent: Tenderness, Thyromegaly - Respiratory Exam Respiratory Exam: Clear to Ausculation Bilateral, NORMAL BREATHING PATTERN. absent: Rhonchi, Wheezes - Cardiovascular Exam Cardiovascular Exam: REGULAR RHYTHM, +S1, +S2. absent: Murmur - GI/Abdominal Exam GI & Abdominal Exam: Soft. absent: Tenderness - Extremities Exam Extremities Exam: Full ROM. absent: Pedal Edema - Skin Skin Exam: Rash (VZV -like rash L. breast and axilla/L. arm) Assessment and Plan - Assessment and Plan (Free Text) Assessment: CP - Atypical; non cardiac ---> on re-evaluation of pain today c/w muscle spasm/strain - RI ruled out - ECHO images directly viewed by me: Low-normal LVEF, unchanged from my office echo LVH, mod LAE, mild PASP ~40mmHG, no MS or Mild MR, TR - EKG: Known chronic LBBB - cont medical therapy with ASA, statin and beta-tanya - added ranexa 500 BID HTN - initially high, now better - diltiazem 180, metoprolol 100, losartan 25 - low salt diet -> EDEMA in legs: resume bumetanide 2mg daily - dvt prophylaxis LIPIDS - cont crestor LBBB - chronic unchanged DM - uncontrolled - consider neuropathy as cause of sxs I discussed in detail with patient and her son and explained that this is non- cardiac I suggest trial of anti-inflam or antispasmodic/muscle relaxants Fevers/chills CXRAY and CT scan viewed by me: Linear atelectasis EVER: No leukocytosis possible VZV ; RX and w/u in progress ABX and supportive care f/u cultures
--- NOTE | 2018-08-03 18:39 | CP.PCM.CON ---
History of Present Illness - History of Present Illness History of Present Illness: INFECTIOUS DISEASE CONSULT; HPI; 68-year-old [place] female, with history off. CAD S/P CABG, CHF, diabetes mellitus2, hypertension, hypercholesterolemia, sleep apnea and arthritis who was admitted on 07/30/18 with left-sided chest pain radiating to the left upper back and axilla. She described the pain as sharp and constant and not worsening with deep breaths. Patient was given aspirin and sublingual nitroglycerin in the field with no improvement in chest pain with nitroglycerin. 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 Today, patient was noticed to have a vesicular rash especially left upper back, left upper arm and axilla and a few lesions on the anterior chest. The rash is erythematous and painful and diffuse. Patient denies any headache or seizure disorder. Presently denies any shortness of breath, cough, fever, nausea, vomiting or diarrhea. Infectious disease consult was requested for the rash by PMD. Patient denies having previous history off such a rash. Denies any sick contacts Denies any travel. PMH: Arthritis, CHF, COPD, HTN, Hypercholesterolemia, Sleep Apnea Surgical History: CABG, Endoscopy Denies: Pacemaker TONSILLECTOMY (01/14/98) Family History: States: No Known Family Hx - Social History Hx Tobacco Use: No Hx Alcohol Use: No Hx Substance Use: No - Immunization History Hx Tetanus Toxoid Vaccination: No Hx Influenza Vaccination: No Hx Pneumococcal Vaccination: No. Allergy;; sulfa antibiotics. Review of Systems - Constitutional Constitutional: absent: Chills, Fever - EENT Eyes: absent: Change in Vision Nose/Mouth/Throat: absent: Mouth Lesions - Cardiovascular Cardiovascular: Chest Pain - Respiratory Respiratory: absent: Cough, Dyspnea, Hemoptysis - Gastrointestinal Gastrointestinal: absent: Abdominal Pain, Diarrhea, Nausea - Genitourinary Genitourinary: absent: Dysuria, Pyuria - Neurological Neurological: absent: Headaches, Sensory Deficit, Weakness - Hematologic/Lymphatic Hematologic: As Per HPI. absent: Lymphadenopathy Past Patient History - Past Medical History & Family History Past Medical History?: Yes - Past Social History Smoking Status: Never Smoked - CARDIAC Hx Congestive Heart Failure: Yes Hx Hypercholesterolemia: Yes Hx Hypertension: Yes Hx Pacemaker: No - PULMONARY Hx Chronic Obstructive Pulmonary Disease (COPD): Yes Hx Sleep Apnea: Yes - NEUROLOGICAL Hx Neurological Disorder: No - HEENT Hx HEENT Problems: No - RENAL Hx Chronic Kidney Disease: No - ENDOCRINE/METABOLIC Hx Endocrine Disorders: Yes Hx Diabetes Mellitus Type 2: Yes Other/Comment: "PITUITARY ISSUES" - HEMATOLOGICAL/ONCOLOGICAL Hx Blood Disorders: No Hx Blood Transfusions: No Hx Blood Transfusion Reaction: No - INTEGUMENTARY Hx Dermatological Problems: No - MUSCULOSKELETAL/RHEUMATOLOGICAL Hx Arthritis: Yes Hx Falls: No - GASTROINTESTINAL Hx Gastrointestinal Disorders: Yes Hx Bowel Surgery: No Other/Comment: Gastric sleeve - GENITOURINARY/GYNECOLOGICAL Hx Genitourinary Disorders: Yes Hx Incontinence: Yes - PSYCHIATRIC Hx Substance Use: No - SURGICAL HISTORY Hx Coronary Artery Bypass Graft: Yes - ANESTHESIA Hx Anesthesia: Yes Hx Anesthesia Reactions: Yes (ITCHiness) Hx Malignant Hyperthermia: No Meds Allergies/Adverse Reactions: Allergies Allergy/AdvReac Type Severity Reaction Status Date / Time Sulfa (Sulfonamide Allergy Intermediate RASH Verified 07/30/18 19:33 Antibiotics) - Medications Medications: Current Medications Acetaminophen (Tylenol 325mg Tab) 650 mg PO Q6 PRN PRN Reason: Fever >100.4 F Last Admin: 08/03/18 12:22 Dose: 650 mg Albuterol/Ipratropium (Duoneb 3 Mg/0.5 Mg (3 Ml) Ud) 3 ml INH RQ6 [facility] Last Admin: 08/03/18 07:25 Dose: Not Given Aspirin (Ecotrin) 81 mg PO DAILY [facility] Last Admin: 08/03/18 12:23 Dose: 81 mg Diltiazem HCl (Cardizem Cd) 180 mg PO DAILY [facility] Last Admin: 08/03/18 12:24 Dose: 180 mg Docusate Sodium (Colace) 100 mg PO BID [facility] Last Admin: 08/03/18 17:35 Dose: 100 mg Heparin Sodium (Porcine) (Heparin) 5,000 units SC Q8 [facility] Last Admin: 08/03/18 13:42 Dose: 5,000 units Ceftriaxone Sodium 1 gm/ (Sodium Chloride) 100 mls @ 100 mls/hr IVPB Q24H [facility]; Protocol Last Admin: 08/03/18 12:26 Dose: 100 mls/hr Insulin Aspart (Novolog) 25 unit SC TID [facility] Last Admin: 07/31/18 13:10 Dose: Not Given Insulin Human Regular (Novolin R) 0 unit SC ACHS [facility]; Protocol Last Admin: 08/03/18 17:35 Dose: 3 units Lidocaine (Lidoderm) 1 ea TD DAILY [facility] Last Admin: 08/03/18 11:00 Dose: Not Given Losartan Potassium (Cozaar) 25 mg PO DAILY [facility] Last Admin: 08/03/18 12:23 Dose: 25 mg Metoprolol Tartrate (Lopressor) 100 mg PO DAILY [facility] Last Admin: 08/03/18 12:23 Dose: 100 mg Nitroglycerin (Nitro-Bid 2% Oint) 1 ea TOP Q6H PRN PRN Reason: chest pain Pantoprazole Sodium (Protonix Ec Tab) 40 mg PO DAILY [facility] Last Admin: 08/03/18 12:23 Dose: 40 mg Promethazine HCl (Phenergan Syrup) 6.25 mg PO Q6H PRN PRN Reason: Cough Last Admin: 08/02/18 08:39 Dose: 6.25 mg Ranolazine (Ranexa) 500 mg PO BID [facility] Last Admin: 08/03/18 17:34 Dose: 500 mg Rosuvastatin Calcium (Crestor) 10 mg PO HS [facility] Last Admin: 08/02/18 22:17 Dose: 10 mg Tramadol HCl (Ultram) 25 mg PO BID PRN PRN Reason: Pain, moderate (4-7) Last Admin: 08/02/18 15:10 Dose: 25 mg Valacyclovir HCl (Valtrex) 1,000 mg PO BID [facility]; Protocol Stop: 08/10/18 16:01 Last Admin: 08/03/18 17:34 Dose: 1,000 mg Physical Exam - Constitutional Appears: No Acute Distress - Head Exam Head Exam: NORMAL INSPECTION - Eye Exam Eye Exam: EOMI, PERRL - ENT Exam ENT Exam: Normal Oropharynx - Neck Exam Neck exam: Positive for: Normal Inspection. Negative for: Meningismus - Respiratory Exam Respiratory Exam: Decreased Breath Sounds, NORMAL BREATHING PATTERN - Cardiovascular Exam Cardiovascular Exam: REGULAR RHYTHM, +S1, +S2 - GI/Abdominal Exam GI & Abdominal Exam: Normal Bowel Sounds, Soft. absent: Organomegaly - Extremities Exam Extremities exam: Positive for: pedal pulses present. Negative for: calf tenderness, pedal edema - Neurological Exam Neurological exam: Alert, CN II-XII Intact, Normal Gait, Oriented x3, Reflexes Normal - Psychiatric Exam Psychiatric exam: Normal Mood - Skin Skin Exam: Normal Color, Rash (VESICULAR RASH POSTERIORLY LEFT UPPER TRAPEZIUS AND LEFT UPPER ARM ON ERYTHEMATOUS BASE. aLSO A FEW LESIONS NOTED ANTERIORLY LEFT UPPER CHEST.) Results - Vital Signs Recent Vital Signs: Last Vital Signs Temp 97.7 F 08/03/18 15:00 Pulse 64 08/03/18 15:00 Resp 20 08/03/18 15:00 BP 122/69 08/03/18 15:00 Pulse Ox 97 08/03/18 15:00 - Labs Result Diagrams: 08/03/18 11:35 08/03/18 11:35 Labs: Laboratory Results - last 24 hr 08/02/18 08/03/18 08/03/18 21:13 06:21 11:18 WBC RBC Hgb Hct MCV MCH MCHC RDW Plt Count MPV Neut % (Auto) Lymph % (Auto) [place] % (Auto) Eos % (Auto) Baso % (Auto) Neut # (Auto) Lymph # (Auto) [place] # (Auto) Eos # (Auto) Baso # (Auto) Sodium Potassium Chloride Carbon Dioxide Anion Gap BUN Creatinine Est GFR ( Amer) Est GFR (Non-Af Amer) POC Glucose (mg/dL) 173 H 268 H 255 H Random Glucose Calcium Phosphorus Magnesium Total Bilirubin AST ALT Alkaline Phosphatase Total Protein Albumin Globulin Albumin/Globulin Ratio 08/03/18 08/03/18 08/03/18 11:35 11:35 15:54 WBC 4.5 L RBC 4.56 Hgb 11.3 Hct 35.1 MCV 77.0 L MCH 24.9 L MCHC 32.3 L RDW 14.8 H Plt Count 262 MPV 8.5 Neut % (Auto) 56.7 Lymph % (Auto) 25.9 [place] % (Auto) 15.5 H Eos % (Auto) 1.4 Baso % (Auto) 0.5 Neut # (Auto) 2.6 Lymph # (Auto) 1.2 [place] # (Auto) 0.7 Eos # (Auto) 0.1 Baso # (Auto) 0.0 Sodium 131 L Potassium 4.1 Chloride 98 Carbon Dioxide 23 Anion Gap 14 BUN 10 Creatinine 0.8 Est GFR ( Amer) > 60 Est GFR (Non-Af Amer) > 60 POC Glucose (mg/dL) 279 H Random Glucose 257 H D Calcium 8.8 Phosphorus 2.9 Magnesium 1.8 Total Bilirubin 0.5 AST 60 H ALT 35 Alkaline Phosphatase 114 Total Protein 7.0 Albumin 4.1 Globulin 3.0 Albumin/Globulin Ratio 1.4 - Imaging and Cardiology CT scan - chest Status: Report reviewed by me (08/02/18 NOTED SEE REPORT.) Assessment & Plan (1) Herpes zoster Status: Acute (2) Chest pain, atypical Status: Acute (3) CAD (coronary artery disease) Status: Acute (4) Diabetes mellitus Status: Acute - Assessment and Plan (Free Text) Plan: PLAN; IV ACYCLOVIR 500MG IVPB Q8HRLY 08/03/18. INCREASE IV CEFOTRIAXONE 1GM IVPB [id number]/03/18. ADD IV SOLUMEDROL 100MG IVPB LD TODAY F/U IV SOLUMEDROL 60MG IVPB QD DAILY X 4DAYS DC PO VALTREX. CONTACT PRECAUTIONS. ANALGESICS . CASE DISCUSSED WITH STAFF/AND FAMILY .
[2018-08-03] MEDS ORDERED: cefTRIAXone IV 1 gm in Dextros 50 ML IVPB SCH (18:45)
[2018-08-03] MEDS ORDERED: methylPREDNISolone 100 MG in Sodium Chloride 0.9% 100 ML IVPB ONE ×2 (18:59→20:45)
[2018-08-03] MEDS ORDERED: Acyclovir 500 MG in Sodium Chloride 0.9% 100 ML IV SCH (19:30)
[2018-08-04] MEDS ORDERED: cefTRIAXone IV 1 gm in Dextros 50 ML IVPB SCH (00:30)
[2018-08-04] MEDS: Albuterol-Ipratrop 3 mg / 0.5 (3 ml) UD INH SCH ×4 (01:07→19:47)
[2018-08-04] MEDS: Acyclovir 500 MG in Sodium Chloride 0.9% 100 ML IV SCH ×4 (01:15→23:27)
[2018-08-04] MEDS: (Novolin R) Insulin Human Regular 100 units/ml vial SC SCH ×4 (08:30→21:41)
--- NOTE | 2018-08-04 08:38 | CP.PCM.PN ---
Subjective - Date & Time of Evaluation Date of Evaluation: 08/04/18 Time of Evaluation: 08:37 - Subjective Subjective: Events reviewed Objective - Vital Signs/Intake and Output Vital Signs (last 24 hours): Temp Pulse Resp BP Pulse Ox 98.0 F 99 H 20 153/85 H 93 L 08/03/18 23:35 08/04/18 07:54 08/03/18 23:35 08/03/18 23:35 08/03/18 23:35 - Medications Medications: Current Medications Acetaminophen (Tylenol 325mg Tab) 650 mg PO Q6 PRN PRN Reason: Fever >100.4 F Last Admin: 08/03/18 12:22 Dose: 650 mg Albuterol/Ipratropium (Duoneb 3 Mg/0.5 Mg (3 Ml) Ud) 3 ml INH RQ6 [facility] Last Admin: 08/04/18 07:58 Dose: Not Given Aspirin (Ecotrin) 81 mg PO DAILY [facility] Last Admin: 08/03/18 12:23 Dose: 81 mg Diltiazem HCl (Cardizem Cd) 180 mg PO DAILY [facility] Last Admin: 08/03/18 12:24 Dose: 180 mg Docusate Sodium (Colace) 100 mg PO BID [facility] Last Admin: 08/03/18 17:35 Dose: 100 mg Heparin Sodium (Porcine) (Heparin) 5,000 units SC Q8 [facility] Last Admin: 08/04/18 05:28 Dose: 5,000 units Acyclovir 500 mg/ Sodium (Chloride) 100 mls @ 100 mls/hr IV Q8H [facility]; Protocol Last Admin: 08/04/18 01:15 Dose: 100 mls/hr Insulin Aspart (Novolog) 25 unit SC TID [facility] Last Admin: 07/31/18 13:10 Dose: Not Given Insulin Human Regular (Novolin R) 0 unit SC ACHS [facility]; Protocol Last Admin: 08/03/18 22:18 Dose: Not Given Lidocaine (Lidoderm) 1 ea TD DAILY [facility] Last Admin: 08/03/18 11:00 Dose: Not Given Losartan Potassium (Cozaar) 25 mg PO DAILY [facility] Last Admin: 08/03/18 12:23 Dose: 25 mg Methylprednisolone (Solu-Medrol) 60 mg IVP DAILY [facility] Metoprolol Tartrate (Lopressor) 100 mg PO DAILY [facility] Last Admin: 08/03/18 12:23 Dose: 100 mg Nitroglycerin (Nitro-Bid 2% Oint) 1 ea TOP Q6H PRN PRN Reason: chest pain Pantoprazole Sodium (Protonix Ec Tab) 40 mg PO DAILY [facility] Last Admin: 08/03/18 12:23 Dose: 40 mg Promethazine HCl (Phenergan Syrup) 6.25 mg PO Q6H PRN PRN Reason: Cough Last Admin: 08/02/18 08:39 Dose: 6.25 mg Ranolazine (Ranexa) 500 mg PO BID [facility] Last Admin: 08/03/18 17:34 Dose: 500 mg Rosuvastatin Calcium (Crestor) 10 mg PO HS [facility] Last Admin: 08/03/18 22:17 Dose: 10 mg Tramadol HCl (Ultram) 25 mg PO BID PRN PRN Reason: Pain, moderate (4-7) Last Admin: 08/02/18 15:10 Dose: 25 mg - Labs Labs: 08/03/18 11:35 08/03/18 11:35 PT 10.9 SECONDS (9.7-12.2) 07/30/18 19:45 INR 1.0 07/30/18 19:45 APTT 27 SECONDS (21-34) 07/30/18 19:45 Assessment and Plan - Assessment and Plan (Free Text) Assessment: - Constitutional Appears: No Acute Distress - Head Exam Head Exam: ATRAUMATIC, NORMAL INSPECTION, NORMOCEPHALIC - Eye Exam Eye Exam: EOMI, Normal appearance. absent: Scleral icterus - ENT Exam ENT Exam: Mucous Membranes Moist - Neck Exam Neck Exam: Full ROM, Normal Inspection. absent: Tenderness, Thyromegaly - Respiratory Exam Respiratory Exam: Clear to Ausculation Bilateral, NORMAL BREATHING PATTERN. absent: Rhonchi, Wheezes - Cardiovascular Exam Cardiovascular Exam: REGULAR RHYTHM, +S1, +S2. absent: Murmur - GI/Abdominal Exam GI & Abdominal Exam: Soft. absent: Tenderness - Extremities Exam Extremities Exam: Full ROM. absent: Pedal Edema - Skin Skin Exam: Rash (VZV -like rash L. breast and axilla/L. arm) Assessment and Plan - Assessment and Plan (Free Text) Assessment: CP - Atypical; non cardiac due to varicella infection - steroids, ID, Acyclovir, ceftriaxone - [place] ruled out - ECHO images directly viewed by me: Low-normal LVEF, unchanged from my office echo LVH, mod LAE, mild PASP ~40mmHG, no MS or Mild MR, TR - EKG: Known chronic LBBB - cont medical therapy with ASA, statin and beta-tanya, ranexa HTN - initially high, now better - diltiazem 180, metoprolol 100, losartan 25 - low salt diet -> EDEMA in legs: resume bumetanide 2mg daily - dvt prophylaxis LIPIDS - cont crestor LBBB - chronic unchanged DM - uncontrolled - consider neuropathy as cause of sxs I discussed in detail with patient and her son and explained that this is non- cardiac I suggest trial of anti-inflam or antispasmodic/muscle relaxants
[2018-08-04] MEDS: Pantoprazole 40 mg EC Tab PO SCH (09:10)
[2018-08-04] MEDS: Lidocaine 5% Patch TD SCH (09:10)
[2018-08-04] MEDS: Ranolazine 500 mg Extended Release Tablets PO SCH ×2 (09:10→17:15)
[2018-08-04] MEDS: diltiaZEM 180 mg/24 Hours CD Cap PO SCH (09:10)
[2018-08-04] MEDS ORDERED: methylPREDNISolone 60 MG in Sodium Chloride 0.9% 100 ML IVP SCH (10:00)
--- NOTE | 2018-08-04 19:28 | CP.PCM.PN ---
Subjective - Date & Time of Evaluation Date of Evaluation: 08/04/18 Time of Evaluation: 19:28 - Subjective Subjective: AFEBRILE, C/O PAIN LT CHEST/BACK POSTERIORLY. IV INFILTRATED. VERY POOR VEINS. NEED IV ACYCLOVIR IN VIEW OF EXTENSIVE MULTIDERMATOMAL HERPES ZOSTER ALSO ON IV SOLUMEDROL FOR POST HERPETIC NEURALGIA Objective - Vital Signs/Intake and Output Vital Signs (last 24 hours): Temp Pulse Resp BP Pulse Ox 98.4 F 84 20 144/73 95 08/04/18 15:00 08/04/18 15:01 08/04/18 15:00 08/04/18 15:00 08/04/18 15:00 - Medications Medications: Current Medications Acetaminophen (Tylenol 325mg Tab) 650 mg PO Q6 PRN PRN Reason: Fever >100.4 F Last Admin: 08/03/18 12:22 Dose: 650 mg Albuterol/Ipratropium (Duoneb 3 Mg/0.5 Mg (3 Ml) Ud) 3 ml INH RQ6 [facility] Last Admin: 08/04/18 13:17 Dose: Not Given Aspirin (Ecotrin) 81 mg PO DAILY [facility] Last Admin: 08/04/18 09:10 Dose: 81 mg Diltiazem HCl (Cardizem Cd) 180 mg PO DAILY [facility] Last Admin: 08/04/18 09:10 Dose: 180 mg Docusate Sodium (Colace) 100 mg PO BID [facility] Last Admin: 08/04/18 17:15 Dose: 100 mg Heparin Sodium (Porcine) (Heparin) 5,000 units SC Q8 [facility] Last Admin: 08/04/18 13:57 Dose: 5,000 units Acyclovir 500 mg/ Sodium (Chloride) 100 mls @ 100 mls/hr IV Q8H [facility]; Protocol Last Admin: 08/04/18 16:57 Dose: 100 mls/hr Insulin Aspart (Novolog) 25 unit SC TID [facility] Last Admin: 07/31/18 13:10 Dose: Not Given Insulin Human Regular (Novolin R) 0 unit SC ACHS [facility]; Protocol Last Admin: 08/04/18 16:58 Dose: 10 units Lidocaine (Lidoderm) 1 ea TD DAILY [facility] Last Admin: 08/04/18 09:10 Dose: 1 ea Losartan Potassium (Cozaar) 25 mg PO DAILY [facility] Last Admin: 08/04/18 09:10 Dose: 25 mg Methylprednisolone (Solu-Medrol) 60 mg IVP DAILY [facility] Last Admin: 08/04/18 09:10 Dose: 60 mg Metoprolol Tartrate (Lopressor) 100 mg PO DAILY [facility] Last Admin: 08/04/18 09:10 Dose: 100 mg Nitroglycerin (Nitro-Bid 2% Oint) 1 ea TOP Q6H PRN PRN Reason: chest pain Pantoprazole Sodium (Protonix Ec Tab) 40 mg PO DAILY [facility] Last Admin: 08/04/18 09:10 Dose: 40 mg Promethazine HCl (Phenergan Syrup) 6.25 mg PO Q6H PRN PRN Reason: Cough Last Admin: 08/02/18 08:39 Dose: 6.25 mg Ranolazine (Ranexa) 500 mg PO BID [facility] Last Admin: 08/04/18 17:15 Dose: 500 mg Rosuvastatin Calcium (Crestor) 10 mg PO HS [facility] Last Admin: 08/03/18 22:17 Dose: 10 mg Tramadol HCl (Ultram) 25 mg PO BID PRN PRN Reason: Pain, moderate (4-7) Last Admin: 08/02/18 15:10 Dose: 25 mg - Labs Labs: 08/03/18 11:35 08/03/18 11:35 PT 10.9 SECONDS (9.7-12.2) 07/30/18 19:45 INR 1.0 07/30/18 19:45 APTT 27 SECONDS (21-34) 07/30/18 19:45 - Constitutional Appears: No Acute Distress - Head Exam Head Exam: NORMAL INSPECTION - Eye Exam Eye Exam: EOMI, PERRL - ENT Exam ENT Exam: Normal Oropharynx - Neck Exam Neck Exam: Normal Inspection. absent: Lymphadenopathy, Meningismus - Respiratory Exam Respiratory Exam: Clear to Ausculation Bilateral, NORMAL BREATHING PATTERN - Cardiovascular Exam Cardiovascular Exam: REGULAR RHYTHM, +S1, +S2 - Extremities Exam Extremities Exam: Normal Capillary Refill. absent: Calf Tenderness, Pedal Edema - Neurological Exam Neurological Exam: Awake, CN II-XII Intact, Normal Gait, Oriented x3, Reflexes Normal - Psychiatric Exam Psychiatric exam: Normal Mood - Skin Skin Exam: Rash (VESICULAR RASH LT POSTERIOR UPPER CHEST/LT UPPER ARM AND LT.UPPER CHEST ANTERIORLY) Assessment and Plan (1) Herpes zoster Status: Acute (2) Chest pain, atypical Status: Acute (3) CAD (coronary artery disease) Status: Acute (4) Diabetes mellitus Status: Acute - Assessment and Plan (Free Text) Plan: IV ACYCLOVIR 500MG IVPB Q8HRLY 08/03/18. INCREASE IV CEFOTRIAXONE 1GM IVPB [id number]/03/18. ADD IV SOLUMEDROL 100MG IVPB LD TODAY F/U IV SOLUMEDROL 60MG IVPB QD DAILY X 4DAYS [facility] /CONTACT PRECAUTIONS. ANALGESICS . CASE DISCUSSED WITH STAFF/ .
[2018-08-04 20:14] LABS: SQUAMOUS EPITHIAL < 1 /hpf (0-5); URINE BILIRUBIN NEGATIVE (NEGATIVE); URINE BLOOD NEGATIVE (NEGATIVE); URINE CLARITY Clear (Clear); URINE COLOR Yellow (YELLOW); URINE GLUCOSE (UA) 3+ mg/dL (Normal); URINE LEUKOCYTE ESTERASE NEG Leu/uL (Negative); URINE PROTEIN NEGATIVE (NEGATIVE); URINE UROBILINOGEN NORMAL mg/dL (0.2-1.0)
[2018-08-05] MEDS: Albuterol-Ipratrop 3 mg / 0.5 (3 ml) UD INH SCH ×4 (01:16→19:20)
[2018-08-05] MEDS: (Novolin R) Insulin Human Regular 100 units/ml vial SC SCH ×4 (06:55→22:00)
[2018-08-05] MEDS: Acyclovir 500 MG in Sodium Chloride 0.9% 100 ML IV SCH ×3 (08:07→23:18)
[2018-08-05] MEDS: Ranolazine 500 mg Extended Release Tablets PO SCH ×2 (09:03→17:33)
[2018-08-05] MEDS: Pantoprazole 40 mg EC Tab PO SCH (09:03)
[2018-08-05] MEDS: Lidocaine 5% Patch TD SCH (09:04)
[2018-08-05] MEDS: diltiaZEM 180 mg/24 Hours CD Cap PO SCH (09:04)
[2018-08-05] MEDS: (Novolog) Insulin Aspart, Recombinant 100 u/ml 10 ml vial SC SCH ×2 (13:57→17:33)
[2018-08-06] MEDS: Albuterol-Ipratrop 3 mg / 0.5 (3 ml) UD INH SCH ×3 (01:17→15:17)
[2018-08-06] MEDS: Acyclovir 500 MG in Sodium Chloride 0.9% 100 ML IV SCH ×3 (08:25→23:09)
[2018-08-06] MEDS: (Novolin R) Insulin Human Regular 100 units/ml vial SC SCH ×4 (08:26→23:07)
[2018-08-06] MEDS: MethylPREDNISolone 40 mg Vial IVP SCH (09:45)
[2018-08-06] MEDS: Ranolazine 500 mg Extended Release Tablets PO SCH ×2 (09:45→18:13)
[2018-08-06] MEDS: diltiaZEM 180 mg/24 Hours CD Cap PO SCH (09:45)
[2018-08-06] MEDS: (Novolog) Insulin Aspart, Recombinant 100 u/ml 10 ml vial SC SCH ×3 (09:46→19:14)
[2018-08-06] MEDS: Lidocaine 5% Patch TD SCH (09:46)
[2018-08-06] MEDS: Pantoprazole 40 mg EC Tab PO SCH (09:46)
--- NOTE | 2018-08-06 11:41 | CP.PCM.PN ---
Subjective - Date & Time of Evaluation Date of Evaluation: 08/06/18 Time of Evaluation: 11:41 - Subjective Subjective: AFEBRILE, C/O COUGH C/O PAIN LT CHEST/BACK POSTERIORLY. RASH STILL FEW BLISTERS/AND ERYTHEMA tolerating iv acyclovir iv CEFOTRIAXONE ON IV SOLUMEDRO PO NEURONTIN. ANALGESICS CT CHEST ; left upper lobe linear infiltrate/atelectasis with left lower lobe infiltrate Enlarged left thyroid lobe ? nodule. Objective - Vital Signs/Intake and Output Vital Signs (last 24 hours): Temp Pulse Resp BP Pulse Ox 98.3 F 99 H 20 145/75 97 08/06/18 08:30 08/06/18 09:44 08/06/18 08:30 08/06/18 09:44 08/06/18 08:30 Intake and Output: 08/06/18 08/06/18 06:59 18:59 Intake Total 340 Balance 340 - Medications Medications: Current Medications Acetaminophen (Tylenol 325mg Tab) 650 mg PO Q6 PRN PRN Reason: Fever >100.4 F Last Admin: 08/03/18 12:22 Dose: 650 mg Albuterol/Ipratropium (Duoneb 3 Mg/0.5 Mg (3 Ml) Ud) 3 ml INH RQ6 [facility] Last Admin: 08/06/18 07:25 Dose: Not Given Aspirin (Ecotrin) 81 mg PO DAILY [facility] Last Admin: 08/06/18 09:45 Dose: 81 mg Diltiazem HCl (Cardizem Cd) 180 mg PO DAILY [facility] Last Admin: 08/06/18 09:45 Dose: 180 mg Docusate Sodium (Colace) 100 mg PO BID [facility] Last Admin: 08/06/18 09:46 Dose: 100 mg Gabapentin (Neurontin) 300 mg PO TID [facility] Last Admin: 08/06/18 09:45 Dose: 300 mg Heparin Sodium (Porcine) (Heparin) 5,000 units SC Q8 [facility] Last Admin: 08/06/18 05:26 Dose: 5,000 units Acyclovir 500 mg/ Sodium (Chloride) 100 mls @ 100 mls/hr IV Q8H [facility]; Protocol Last Admin: 08/06/18 08:25 Dose: 100 mls/hr Insulin Aspart (Novolog) 25 unit SC TID [facility] Last Admin: 08/06/18 09:46 Dose: 25 units Insulin Human Regular (Novolin R) 0 unit SC ACHS [facility]; Protocol Last Admin: 08/06/18 08:26 Dose: 8 units Lidocaine (Lidoderm) 1 ea TD DAILY [facility] Last Admin: 08/06/18 09:46 Dose: 1 ea Losartan Potassium (Cozaar) 25 mg PO DAILY [facility] Last Admin: 08/06/18 09:45 Dose: 25 mg Methylprednisolone (Solu-Medrol) 40 mg IVP DAILY [facility] Last Admin: 08/06/18 09:45 Dose: 40 mg Metoprolol Tartrate (Lopressor) 100 mg PO DAILY [facility] Last Admin: 08/06/18 09:45 Dose: 100 mg Nitroglycerin (Nitro-Bid 2% Oint) 1 ea TOP Q6H PRN PRN Reason: chest pain Pantoprazole Sodium (Protonix Ec Tab) 40 mg PO DAILY [facility] Last Admin: 08/06/18 09:46 Dose: 40 mg Promethazine HCl (Phenergan Syrup) 6.25 mg PO Q6H PRN PRN Reason: Cough Last Admin: 08/02/18 08:39 Dose: 6.25 mg Ranolazine (Ranexa) 500 mg PO BID [facility] Last Admin: 08/06/18 09:45 Dose: 500 mg Rosuvastatin Calcium (Crestor) 10 mg PO HS [facility] Last Admin: 08/05/18 22:03 Dose: 10 mg Tramadol HCl (Ultram) 25 mg PO BID PRN PRN Reason: Pain, moderate (4-7) Last Admin: 08/02/18 15:10 Dose: 25 mg - Labs Labs: 08/03/18 11:35 08/03/18 11:35 PT 10.9 SECONDS (9.7-12.2) 07/30/18 19:45 INR 1.0 07/30/18 19:45 APTT 27 SECONDS (21-34) 07/30/18 19:45 - Constitutional Appears: No Acute Distress - Head Exam Head Exam: NORMAL INSPECTION - Eye Exam Eye Exam: EOMI, PERRL - ENT Exam ENT Exam: Normal Oropharynx - Neck Exam Neck Exam: Normal Inspection - Respiratory Exam Respiratory Exam: Rhonchi (LT SIDE ), NORMAL BREATHING PATTERN - Cardiovascular Exam Cardiovascular Exam: REGULAR RHYTHM, +S1, +S2 - GI/Abdominal Exam GI & Abdominal Exam: Soft, Normal Bowel Sounds - Extremities Exam Extremities Exam: Normal Capillary Refill, Pedal Edema. absent: Calf Tenderness - Neurological Exam Neurological Exam: Awake, CN II-XII Intact, Normal Gait, Oriented x3, Reflexes Normal - Psychiatric Exam Psychiatric exam: Normal Mood - Skin Skin Exam: Normal Color, Rash (LT. UPPER CHEST POSTERIORLY, LEFT UPPER ARM AND ANTERIOR CHEST STILL WITH A FEW BLISTERS AND ERYTHEMA.), Warm Assessment and Plan (1) Herpes zoster Status: Acute (2) Chest pain, atypical Status: Acute (3) CAD (coronary artery disease) Status: Acute (4) Diabetes mellitus Status: Acute - Assessment and Plan (Free Text) Plan: IV ACYCLOVIR 500MG IVPB Q8HRLY 08/03/18. INCREASE IV CEFOTRIAXONE 1GM IVPB [id number]/03/18. ADD IV SOLUMEDROL 100MG IVPB LD TODAY F/U IV SOLUMEDROL 60MG IVPB QD DAILY X 4DAYS F/U CXR - [facility] /CONTACT PRECAUTIONS. ANALGESICS . CASE DISCUSSED WITH STAFF/ .
[2018-08-06 13:58] LABS: BASO % 0.1 % (0.0-2.0); HEMOGLOBIN 10.5 g/dL (11.0-16.0); LYMPH # 1.3 K/uL (1.0-4.3); LYMPH % 18.2 % (20.0-40.0); MEAN CELL VOLUME 77.6 fL (81.0-99.0); MEAN CORPUSCULAR HEMOGLOBIN 24.7 pg (27.0-31.0); MEAN CORPUSCULAR HGB CONC 31.8 g/dL (33.0-37.0); MEAN PLATELET VOLUME 8.9 fL (7.2-11.7); MONO # 0.5 K/uL (0.0-0.8); NEUT # 5.5 K/uL (1.8-7.0); NEUT % 74.7 % (50.0-75.0); RBC 4.24 Mil/uL (3.80-5.20); RED CELL DISTRIBUTION WIDTH 15.4 % (11.5-14.5); WHITE BLOOD COUNT 7.4 K/uL (4.8-10.8)
[2018-08-06 14:16] LABS: ALB/GLOB RATIO 1.4 (1.0-2.1); ALT/SGPT 30 U/L (9-52); AST/SGOT 29 U/L (14-36); BILIRUBIN,DIRECT 0.7 mg/dL (0.0-0.4); BLOOD UREA NITROGEN 27 mg/dL (7-17); CALCIUM 9.1 mg/dl (8.6-10.4); GFR NON-AFRICAN AMERICAN 55
--- NOTE | 2018-08-06 17:37 | CP.PCM.PN ---
Subjective - Date & Time of Evaluation Date of Evaluation: 08/06/18 Time of Evaluation: 17:34 - Subjective Subjective: pt is in pain itching no fever no chest pain vitals stable continue current treatment Objective - Vital Signs/Intake and Output Vital Signs (last 24 hours): Temp Pulse Resp BP Pulse Ox 98.3 F 99 H 20 145/75 97 08/06/18 08:30 08/06/18 09:44 08/06/18 08:30 08/06/18 09:44 08/06/18 08:30 Intake and Output: 08/06/18 08/06/18 06:59 18:59 Intake Total 340 400 Balance 340 400 - Medications Medications: Current Medications Acetaminophen (Tylenol 325mg Tab) 650 mg PO Q6 PRN PRN Reason: Fever >100.4 F Last Admin: 08/03/18 12:22 Dose: 650 mg Albuterol/Ipratropium (Duoneb 3 Mg/0.5 Mg (3 Ml) Ud) 3 ml INH RQ6 [facility] Last Admin: 08/06/18 15:17 Dose: Not Given Aspirin (Ecotrin) 81 mg PO DAILY [facility] Last Admin: 08/06/18 09:45 Dose: 81 mg Diltiazem HCl (Cardizem Cd) 180 mg PO DAILY [facility] Last Admin: 08/06/18 09:45 Dose: 180 mg Docusate Sodium (Colace) 100 mg PO BID [facility] Last Admin: 08/06/18 09:46 Dose: 100 mg Gabapentin (Neurontin) 300 mg PO TID [facility] Last Admin: 08/06/18 14:16 Dose: 300 mg Heparin Sodium (Porcine) (Heparin) 5,000 units SC Q8 [facility] Last Admin: 08/06/18 14:16 Dose: 5,000 units Acyclovir 500 mg/ Sodium (Chloride) 100 mls @ 100 mls/hr IV Q8H [facility]; Protocol Last Admin: 08/06/18 15:41 Dose: 100 mls/hr Insulin Aspart (Novolog) 25 unit SC TID [facility] Last Admin: 08/06/18 14:17 Dose: 25 units Insulin Human Regular (Novolin R) 0 unit SC ACHS [facility]; Protocol Last Admin: 08/06/18 13:04 Dose: 8 units Lidocaine (Lidoderm) 1 ea TD DAILY [facility] Last Admin: 08/06/18 09:46 Dose: 1 ea Losartan Potassium (Cozaar) 25 mg PO DAILY [facility] Last Admin: 08/06/18 09:45 Dose: 25 mg Methylprednisolone (Solu-Medrol) 40 mg IVP DAILY [facility] Last Admin: 08/06/18 09:45 Dose: 40 mg Metoprolol Tartrate (Lopressor) 100 mg PO DAILY [facility] Last Admin: 08/06/18 09:45 Dose: 100 mg Nitroglycerin (Nitro-Bid 2% Oint) 1 ea TOP Q6H PRN PRN Reason: chest pain Pantoprazole Sodium (Protonix Ec Tab) 40 mg PO DAILY [facility] Last Admin: 08/06/18 09:46 Dose: 40 mg Promethazine HCl (Phenergan Syrup) 6.25 mg PO Q6H PRN PRN Reason: Cough Last Admin: 08/02/18 08:39 Dose: 6.25 mg Ranolazine (Ranexa) 500 mg PO BID [facility] Last Admin: 08/06/18 09:45 Dose: 500 mg Rosuvastatin Calcium (Crestor) 10 mg PO HS [facility] Last Admin: 08/05/18 22:03 Dose: 10 mg Tramadol HCl (Ultram) 25 mg PO BID PRN PRN Reason: Pain, moderate (4-7) Last Admin: 08/02/18 15:10 Dose: 25 mg - Labs Labs: 08/06/18 13:49 08/06/18 13:49 PT 10.9 SECONDS (9.7-12.2) 07/30/18 19:45 INR 1.0 07/30/18 19:45 APTT 27 SECONDS (21-34) 07/30/18 19:45
[2018-08-06] MEDS: Promethazine 6.25 MG/5 ML CUP PO PRN (21:26)
[2018-08-07] MEDS: Albuterol-Ipratrop 3 mg / 0.5 (3 ml) UD INH SCH ×4 (01:00→19:11)
[2018-08-07] MEDS: (Novolin R) Insulin Human Regular 100 units/ml vial SC SCH ×5 (02:36→21:45)
[2018-08-07] MEDS: Acyclovir 500 MG in Sodium Chloride 0.9% 100 ML IV SCH ×2 (09:00→16:46)
[2018-08-07] MEDS: Lidocaine 5% Patch TD SCH (09:11)
[2018-08-07] MEDS: MethylPREDNISolone 40 mg Vial IVP SCH (09:11)
[2018-08-07] MEDS: diltiaZEM 180 mg/24 Hours CD Cap PO SCH (09:14)
[2018-08-07] MEDS: Ranolazine 500 mg Extended Release Tablets PO SCH ×2 (09:14→17:56)
[2018-08-07] MEDS: Pantoprazole 40 mg EC Tab PO SCH (09:14)
[2018-08-07] MEDS: (Novolog) Insulin Aspart, Recombinant 100 u/ml 10 ml vial SC SCH ×3 (11:02→18:57)
--- NOTE | 2018-08-07 12:01 | RAD ---
Date of service: 08/06/2018 HISTORY: LT SIDED PNEUMONIA COMPARISON: 08/02/2018. Single-view chest 08/02/2018 CT thorax FINDINGS: LUNGS: No active pulmonary disease. PLEURA: No significant pleural effusion identified, no pneumothorax apparent. CARDIOVASCULAR: No atherosclerotic calcification present No radiographic findings to suggest acute or significant cardiovascular disease. Incidental Finding(s): Postoperative changes related to sternotomy. OSSEOUS STRUCTURES: No significant abnormalities. VISUALIZED UPPER ABDOMEN: Normal. OTHER FINDINGS: None. IMPRESSION: No active pulmonary disease. No significant interval change compared to the prior examination(s).
--- NOTE | 2018-08-07 13:06 | CP.PCM.PN ---
Subjective - Date & Time of Evaluation Date of Evaluation: 08/07/18 Time of Evaluation: 13:03 - Subjective Subjective: Pain improved + VZV on isolation and RX Selvin improving: starting to crust No angina or CHF No fevers or chills Objective - Vital Signs/Intake and Output Vital Signs (last 24 hours): Temp Pulse Resp BP Pulse Ox 97.2 F L 68 20 164/87 H 95 08/07/18 07:00 08/07/18 09:13 08/07/18 07:00 08/07/18 09:13 08/07/18 07:00 Intake and Output: 08/07/18 08/07/18 06:59 18:59 Intake Total 850 Balance 850 - Medications Medications: Current Medications Acetaminophen (Tylenol 325mg Tab) 650 mg PO Q6 PRN PRN Reason: Fever >100.4 F Last Admin: 08/03/18 12:22 Dose: 650 mg Albuterol/Ipratropium (Duoneb 3 Mg/0.5 Mg (3 Ml) Ud) 3 ml INH RQ6 [facility] Last Admin: 08/07/18 07:15 Dose: Not Given Aspirin (Ecotrin) 81 mg PO DAILY [facility] Last Admin: 08/07/18 09:14 Dose: 81 mg Diltiazem HCl (Cardizem Cd) 180 mg PO DAILY [facility] Last Admin: 08/07/18 09:14 Dose: 180 mg Docusate Sodium (Colace) 100 mg PO BID [facility] Last Admin: 08/07/18 09:14 Dose: 100 mg Gabapentin (Neurontin) 300 mg PO TID [facility] Last Admin: 08/07/18 09:14 Dose: 300 mg Heparin Sodium (Porcine) (Heparin) 5,000 units SC Q8 [facility] Last Admin: 08/07/18 05:40 Dose: 5,000 units Acyclovir 500 mg/ Sodium (Chloride) 100 mls @ 100 mls/hr IV Q8H [facility]; Protocol Last Admin: 08/07/18 09:00 Dose: 100 mls/hr Ceftriaxone Sodium 1 gm/ (Sodium Chloride) 100 mls @ 100 mls/hr IVPB Q12H [facility]; Protocol Last Admin: 08/07/18 09:14 Dose: 100 mls/hr Insulin Aspart (Novolog) 25 unit SC TID [facility] Last Admin: 08/07/18 11:02 Dose: 25 units Insulin Human Regular (Novolin R) 0 unit SC ACHS [facility]; Protocol Last Admin: 08/07/18 08:30 Dose: 6 units Lidocaine (Lidoderm) 1 ea TD DAILY [facility] Last Admin: 08/07/18 09:11 Dose: 1 ea Losartan Potassium (Cozaar) 25 mg PO DAILY [facility] Last Admin: 08/07/18 09:14 Dose: 25 mg Methylprednisolone (Solu-Medrol) 40 mg IVP DAILY [facility] Last Admin: 08/07/18 09:11 Dose: 40 mg Metoprolol Tartrate (Lopressor) 100 mg PO DAILY [facility] Last Admin: 08/07/18 09:14 Dose: 100 mg Nitroglycerin (Nitro-Bid 2% Oint) 1 ea TOP Q6H PRN PRN Reason: chest pain Pantoprazole Sodium (Protonix Ec Tab) 40 mg PO DAILY [facility] Last Admin: 08/07/18 09:14 Dose: 40 mg Promethazine HCl (Phenergan Syrup) 6.25 mg PO Q6H PRN PRN Reason: Cough Last Admin: 08/06/18 21:26 Dose: 6.25 mg Ranolazine (Ranexa) 500 mg PO BID [facility] Last Admin: 08/07/18 09:14 Dose: 500 mg Rosuvastatin Calcium (Crestor) 10 mg PO HS [facility] Last Admin: 08/06/18 23:07 Dose: 10 mg Tramadol HCl (Ultram) 25 mg PO BID PRN PRN Reason: Pain, moderate (4-7) Last Admin: 08/02/18 15:10 Dose: 25 mg - Labs Labs: 08/06/18 13:49 08/06/18 13:49 PT 10.9 SECONDS (9.7-12.2) 07/30/18 19:45 INR 1.0 07/30/18 19:45 APTT 27 SECONDS (21-34) 07/30/18 19:45 - Constitutional Appears: No Acute Distress - Head Exam Head Exam: ATRAUMATIC, NORMAL INSPECTION, NORMOCEPHALIC - Eye Exam Eye Exam: EOMI, Normal appearance. absent: Scleral icterus - ENT Exam ENT Exam: Mucous Membranes Moist, Normal Oropharynx - Neck Exam Neck Exam: Full ROM, Normal Inspection - Respiratory Exam Respiratory Exam: Clear to Ausculation Bilateral, NORMAL BREATHING PATTERN. absent: Rales, Rhonchi, Wheezes - Cardiovascular Exam Cardiovascular Exam: REGULAR RHYTHM, RRR, +S1, +S2 - GI/Abdominal Exam GI & Abdominal Exam: Soft, Normal Bowel Sounds. absent: Organomegaly - Extremities Exam Extremities Exam: Normal Inspection, Pedal Edema. absent: Calf Tenderness - Neurological Exam Neurological Exam: Alert, Awake, Oriented x3 - Psychiatric Exam Psychiatric exam: Normal Affect, Normal Mood - Skin Skin Exam: Rash (VZV rash L. breat and axilla/scapular) Assessment and Plan - Assessment and Plan (Free Text) Assessment: CP - Atypical; non cardiac due to varicella infection - steroids, ID, Acyclovir, ceftriaxone - improved - UT ruled out - ECHO images directly viewed by me: Low-normal LVEF, unchanged from my office echo LVH, mod LAE, mild PASP ~40mmHG, no MS or Mild MR, TR - EKG: Known chronic LBBB - cont medical therapy with ASA, statin and beta-tanya, ranexa HTN - initially high, now labile elevated - diltiazem 180, metoprolol 100, suggest increase losartan to 50, may need hydr alazine - low salt diet -> EDEMA in legs: resume bumetanide 2mg daily - dvt prophylaxis LIPIDS - cont crestor LBBB - chronic unchanged DM - uncontrolled - consider neuropathy as cause of sxs
--- NOTE | 2018-08-07 14:26 | CP.PCM.PN ---
Subjective - Date & Time of Evaluation Date of Evaluation: 08/07/18 Time of Evaluation: 14:26 - Subjective Subjective: AFEBRILE,OOB C/O COUGH C/O PAIN LT CHEST/BACK POSTERIORLY. RASH STILL FEW BLISTERS/AND ERYTHEMA tolerating iv acyclovir iv CEFOTRIAXONE Objective - Vital Signs/Intake and Output Vital Signs (last 24 hours): Temp Pulse Resp BP Pulse Ox 97.2 F L 68 20 164/87 H 95 08/07/18 07:00 08/07/18 09:13 08/07/18 07:00 08/07/18 09:13 08/07/18 07:00 Intake and Output: 08/07/18 08/07/18 06:59 18:59 Intake Total 850 Balance 850 - Medications Medications: Current Medications Acetaminophen (Tylenol 325mg Tab) 650 mg PO Q6 PRN PRN Reason: Fever >100.4 F Last Admin: 08/03/18 12:22 Dose: 650 mg Albuterol/Ipratropium (Duoneb 3 Mg/0.5 Mg (3 Ml) Ud) 3 ml INH RQ6 [facility] Last Admin: 08/07/18 07:15 Dose: Not Given Aspirin (Ecotrin) 81 mg PO DAILY [facility] Last Admin: 08/07/18 09:14 Dose: 81 mg Diltiazem HCl (Cardizem Cd) 180 mg PO DAILY [facility] Last Admin: 08/07/18 09:14 Dose: 180 mg Docusate Sodium (Colace) 100 mg PO BID [facility] Last Admin: 08/07/18 09:14 Dose: 100 mg Gabapentin (Neurontin) 300 mg PO TID [facility] Last Admin: 08/07/18 13:34 Dose: 300 mg Heparin Sodium (Porcine) (Heparin) 5,000 units SC Q8 [facility] Last Admin: 08/07/18 13:34 Dose: 5,000 units Acyclovir 500 mg/ Sodium (Chloride) 100 mls @ 100 mls/hr IV Q8H [facility]; Protocol Last Admin: 08/07/18 09:00 Dose: 100 mls/hr Ceftriaxone Sodium 1 gm/ (Sodium Chloride) 100 mls @ 100 mls/hr IVPB Q12H [facility]; Protocol Last Admin: 08/07/18 09:14 Dose: 100 mls/hr Insulin Aspart (Novolog) 25 unit SC TID [facility] Last Admin: 08/07/18 14:16 Dose: 25 units Insulin Human Regular (Novolin R) 0 unit SC ACHS [facility]; Protocol Last Admin: 08/07/18 12:30 Dose: 10 units Lidocaine (Lidoderm) 1 ea TD DAILY [facility] Last Admin: 08/07/18 09:11 Dose: 1 ea Losartan Potassium (Cozaar) 25 mg PO DAILY [facility] Last Admin: 08/07/18 09:14 Dose: 25 mg Methylprednisolone (Solu-Medrol) 40 mg IVP DAILY [facility] Last Admin: 08/07/18 09:11 Dose: 40 mg Metoprolol Tartrate (Lopressor) 100 mg PO DAILY [facility] Last Admin: 08/07/18 09:14 Dose: 100 mg Nitroglycerin (Nitro-Bid 2% Oint) 1 ea TOP Q6H PRN PRN Reason: chest pain Pantoprazole Sodium (Protonix Ec Tab) 40 mg PO DAILY [facility] Last Admin: 08/07/18 09:14 Dose: 40 mg Promethazine HCl (Phenergan Syrup) 6.25 mg PO Q6H PRN PRN Reason: Cough Last Admin: 08/06/18 21:26 Dose: 6.25 mg Ranolazine (Ranexa) 500 mg PO BID [facility] Last Admin: 08/07/18 09:14 Dose: 500 mg Rosuvastatin Calcium (Crestor) 10 mg PO HS [facility] Last Admin: 08/06/18 23:07 Dose: 10 mg Tramadol HCl (Ultram) 25 mg PO BID PRN PRN Reason: Pain, moderate (4-7) Last Admin: 08/02/18 15:10 Dose: 25 mg - Labs Labs: 08/06/18 13:49 08/06/18 13:49 PT 10.9 SECONDS (9.7-12.2) 07/30/18 19:45 INR 1.0 07/30/18 19:45 APTT 27 SECONDS (21-34) 07/30/18 19:45 - Constitutional Appears: No Acute Distress - Head Exam Head Exam: NORMAL INSPECTION - Eye Exam Eye Exam: EOMI, PERRL - ENT Exam ENT Exam: Normal Oropharynx - Neck Exam Neck Exam: Normal Inspection - Respiratory Exam Respiratory Exam: Decreased Breath Sounds - Cardiovascular Exam Cardiovascular Exam: REGULAR RHYTHM, +S1, +S2 - GI/Abdominal Exam GI & Abdominal Exam: Soft, Normal Bowel Sounds. absent: Tenderness - Back Exam Back Exam: absent: CVA tenderness (L), CVA tenderness (R) - Neurological Exam Neurological Exam: Awake, CN II-XII Intact, Oriented x3, Reflexes Normal - Psychiatric Exam Psychiatric exam: Normal Mood - Skin Skin Exam: Normal Color, Warm Assessment and Plan (1) Herpes zoster Status: Acute (2) Chest pain, atypical Status: Acute (3) CAD (coronary artery disease) Status: Acute (4) Diabetes mellitus Status: Acute - Assessment and Plan (Free Text) Plan: IV ACYCLOVIR 500MG IVPB Q8HRLY 08/03/18. ON IV CEFOTRIAXONE 1GM IVPB [id number]/03/18. F/U IV SOLUMEDROL 60MG IVPB QD DAILY X 4DAYS LAST DAY TODAY F/U CXR - [facility] /CONTACT PRECAUTIONS. ANALGESICS . CASE DISCUSSED WITH STAFF/ .
[2018-08-08] MEDS: Acyclovir 500 MG in Sodium Chloride 0.9% 100 ML IV SCH ×2 (00:01→08:44)
[2018-08-08 01:28] VITALS: RESP 20
[2018-08-08] MEDS: Albuterol-Ipratrop 3 mg / 0.5 (3 ml) UD INH SCH ×4 (02:08→19:19)
[2018-08-08] MEDS ORDERED: Aluminum Hydroxide/Magnesium Hydroxide Susp (30 mL) PO ONE (02:26)
[2018-08-08] MEDS: (Novolin R) Insulin Human Regular 100 units/ml vial SC SCH ×4 (08:47→23:00)
[2018-08-08] MEDS: Pantoprazole 40 mg EC Tab PO SCH (09:00)
[2018-08-08] MEDS: diltiaZEM 180 mg/24 Hours CD Cap PO SCH (09:00)
[2018-08-08] MEDS: Ranolazine 500 mg Extended Release Tablets PO SCH ×2 (09:00→19:34)
[2018-08-08] MEDS: Lidocaine 5% Patch TD SCH (09:01)
[2018-08-08] MEDS: (Novolog) Insulin Aspart, Recombinant 100 u/ml 10 ml vial SC SCH ×3 (09:04→19:35)
[2018-08-08] MEDS: MethylPREDNISolone 40 mg Vial IVP SCH (10:00)
[2018-08-08 11:40] LABS: BASO # 0.1 K/uL (0.0-0.2); BASO % 0.6 % (0.0-2.0); EOS % 0.1 % (0.0-4.0); HEMOGLOBIN 10.9 g/dL (11.0-16.0); LYMPH # 3.1 K/uL (1.0-4.3); LYMPH % 34.2 % (20.0-40.0); MEAN CELL VOLUME 77.1 fL (81.0-99.0); MEAN CORPUSCULAR HEMOGLOBIN 25.3 pg (27.0-31.0); MEAN CORPUSCULAR HGB CONC 32.8 g/dL (33.0-37.0); MEAN PLATELET VOLUME 9.5 fL (7.2-11.7); MONO % 11.3 % (0.0-10.0); NEUT # 4.8 K/uL (1.8-7.0); NEUT % 53.8 % (50.0-75.0); NRBC % 0.2 % (0.0-2.0); RBC 4.31 Mil/uL (3.80-5.20); RED CELL DISTRIBUTION WIDTH 15.3 % (11.5-14.5); WHITE BLOOD COUNT 8.9 K/uL (4.8-10.8)
[2018-08-08 11:53] LABS: ALB/GLOB RATIO 1.3 (1.0-2.1); ALBUMIN 3.6 g/dL (3.5-5.0); ALT/SGPT 32 U/L (9-52); AST/SGOT 27 U/L (14-36); BLOOD UREA NITROGEN 24 mg/dL (7-17); CALCIUM 9.3 mg/dl (8.6-10.4); GFR NON-AFRICAN AMERICAN > 60
--- NOTE | 2018-08-08 11:53 | CP.PCM.PN ---
Subjective - Date & Time of Evaluation Date of Evaluation: 08/08/18 Time of Evaluation: 11:53 - Subjective Subjective: AFEBRILE,OOB C/O COUGH C/O PAIN LT CHEST/BACK POSTERIORLY. RASH STILL FEW BLISTERS/AND ERYTHEMA IV INFILTERATED , MISSED HER DOSES. NO PICC LINE RN AVAILABLE . WILL SWITCH TO PO VALTREX 1GM PO BID CIPRO 500MG PO DID CXR; REVIEWED. nO ACUTE INFILTRATES. Objective - Vital Signs/Intake and Output Vital Signs (last 24 hours): Temp Pulse Resp BP Pulse Ox 98 F 89 20 151/84 H 97 08/08/18 09:01 08/08/18 09:01 08/08/18 09:01 08/08/18 09:01 08/08/18 09:01 Intake and Output: 08/08/18 08/08/18 06:59 18:59 Intake Total 450 Balance 450 - Medications Medications: Current Medications Acetaminophen (Tylenol 325mg Tab) 650 mg PO Q6 PRN PRN Reason: Fever >100.4 F Last Admin: 08/03/18 12:22 Dose: 650 mg Albuterol/Ipratropium (Duoneb 3 Mg/0.5 Mg (3 Ml) Ud) 3 ml INH RQ6 [facility] Last Admin: 08/08/18 09:03 Dose: Not Given Aspirin (Ecotrin) 81 mg PO DAILY [facility] Last Admin: 08/08/18 09:00 Dose: 81 mg Diltiazem HCl (Cardizem Cd) 180 mg PO DAILY [facility] Last Admin: 08/08/18 09:00 Dose: 180 mg Docusate Sodium (Colace) 100 mg PO BID [facility] Last Admin: 08/08/18 09:00 Dose: 100 mg Gabapentin (Neurontin) 300 mg PO TID [facility] Last Admin: 08/08/18 09:00 Dose: 300 mg Heparin Sodium (Porcine) (Heparin) 5,000 units SC Q8 [facility] Last Admin: 08/08/18 05:30 Dose: 5,000 units Acyclovir 500 mg/ Sodium (Chloride) 100 mls @ 100 mls/hr IV Q8H [facility]; Protocol Last Admin: 08/08/18 08:44 Dose: 100 mls/hr Ceftriaxone Sodium 1 gm/ (Sodium Chloride) 100 mls @ 100 mls/hr IVPB Q12H [facility]; Protocol Last Admin: 08/08/18 09:00 Dose: Not Given Insulin Aspart (Novolog) 25 unit SC TIDCC [facility] Last Admin: 08/08/18 09:04 Dose: 25 units Insulin Human Regular (Novolin R) 0 unit SC ACHS [facility]; Protocol Last Admin: 08/08/18 08:47 Dose: 4 units Lidocaine (Lidoderm) 1 ea TD DAILY [facility] Last Admin: 08/08/18 09:01 Dose: 1 ea Losartan Potassium (Cozaar) 25 mg PO DAILY [facility] Last Admin: 08/08/18 09:00 Dose: 25 mg Methylprednisolone (Solu-Medrol) 40 mg IVP DAILY [facility] Last Admin: 08/08/18 10:00 Dose: Not Given Metoprolol Tartrate (Lopressor) 100 mg PO DAILY [facility] Last Admin: 08/08/18 09:00 Dose: 100 mg Nitroglycerin (Nitro-Bid 2% Oint) 1 ea TOP Q6H PRN PRN Reason: chest pain Pantoprazole Sodium (Protonix Ec Tab) 40 mg PO DAILY [facility] Last Admin: 08/08/18 09:00 Dose: 40 mg Promethazine HCl (Phenergan Syrup) 6.25 mg PO Q6H PRN PRN Reason: Cough Last Admin: 08/06/18 21:26 Dose: 6.25 mg Ranolazine (Ranexa) 500 mg PO BID [facility] Last Admin: 08/08/18 09:00 Dose: 500 mg Rosuvastatin Calcium (Crestor) 10 mg PO HS [facility] Last Admin: 08/07/18 21:45 Dose: 10 mg Tramadol HCl (Ultram) 25 mg PO BID PRN PRN Reason: Pain, moderate (4-7) Last Admin: 08/02/18 15:10 Dose: 25 mg - Labs Labs: 08/08/18 11:34 08/06/18 13:49 PT 10.9 SECONDS (9.7-12.2) 07/30/18 19:45 INR 1.0 07/30/18 19:45 APTT 27 SECONDS (21-34) 07/30/18 19:45 - Constitutional Appears: No Acute Distress - Head Exam Head Exam: NORMAL INSPECTION - Eye Exam Eye Exam: EOMI, PERRL - ENT Exam ENT Exam: Normal Oropharynx - Neck Exam Neck Exam: Normal Inspection - Respiratory Exam Respiratory Exam: Decreased Breath Sounds (BASES), NORMAL BREATHING PATTERN - GI/Abdominal Exam GI & Abdominal Exam: Soft, Normal Bowel Sounds - Extremities Exam Extremities Exam: Normal Capillary Refill. absent: Calf Tenderness, Pedal Edema - Neurological Exam Neurological Exam: Awake, CN II-XII Intact, Normal Gait, Oriented x3, Reflexes Normal - Psychiatric Exam Psychiatric exam: Normal Mood - Skin Skin Exam: Normal Color, Rash (STILL ANGRY AND FEW VESICLES BACK CHEST +VE . +VE HERPETIC NEURALGIA), Warm Assessment and Plan (1) Herpes zoster Status: Acute (2) Chest pain, atypical Status: Acute (3) CAD (coronary artery disease) Status: Acute (4) Diabetes mellitus Status: Acute - Assessment and Plan (Free Text) Plan: CASE DISCUSSED WITH STAFF.IV INFILTRATED. pATIENT MISSED HER DOSE A.M. pRESENTLY picc LINE NURSE NOT AVAILABLE.] SWITCHED TO BY MOUTH VALTREX 1 G BY MOUTH TWICE A DAY. aND cIPRO 500 MG TWICE A DAY FOR NOW. INFORMED PMD FOR picc LINE INSERTION/OR IR TO PLACE TLC IF OK WITH PMD. IV ACYCLOVIR 500MG IVPB Q8HRLY 08/03/18. D/C ON IV CEFOTRIAXONE 1GM IVPB [id number].08/03/18.DC patient on IV steroids. Discussed with PMD if okay to change to by mouth. [place] /CONTACT PRECAUTIONS. ANALGESICS .
[2018-08-08] MEDS: Promethazine 6.25 MG/5 ML CUP PO PRN (19:36)
--- NOTE | 2018-08-08 20:24 | CP.PCM.PN ---
Subjective - Date & Time of Evaluation Date of Evaluation: 08/08/18 Time of Evaluation: 20:23 - Subjective Subjective: Patient is having more pain. Skin changes noted in the back of the head, and also in the back of the chest. Minimal cough noted. Blood sugar elevated. Today patient is having difficult time in getting an intravenous line. We will start the patient on p.o. medication. Possible midline tomorrow. Control the blood sugar. Patient is a 68-year-old female admitted with pneumonia. Herpes zoster. Severe pain. Poorly controlled diabetes. DVT and GI prophylaxis will follow the patient Objective - Vital Signs/Intake and Output Vital Signs (last 24 hours): Temp Pulse Resp BP Pulse Ox 97.9 F 78 20 162/91 H 98 08/08/18 15:00 08/08/18 15:30 08/08/18 15:00 08/08/18 15:00 08/08/18 15:00 - Medications Medications: Current Medications Acetaminophen (Tylenol 325mg Tab) 650 mg PO Q6 PRN PRN Reason: Fever >100.4 F Last Admin: 08/03/18 12:22 Dose: 650 mg Albuterol/Ipratropium (Duoneb 3 Mg/0.5 Mg (3 Ml) Ud) 3 ml INH RQ6 [facility] Last Admin: 08/08/18 19:19 Dose: Not Given Aspirin (Ecotrin) 81 mg PO DAILY [facility] Last Admin: 08/08/18 09:00 Dose: 81 mg Ciprofloxacin (Cipro) 500 mg PO BID [facility]; Protocol Stop: 08/15/18 18:01 Last Admin: 08/08/18 19:34 Dose: 500 mg Diltiazem HCl (Cardizem Cd) 180 mg PO DAILY [facility] Last Admin: 08/08/18 09:00 Dose: 180 mg Docusate Sodium (Colace) 100 mg PO BID [facility] Last Admin: 08/08/18 19:34 Dose: 100 mg Gabapentin (Neurontin) 300 mg PO TID [facility] Last Admin: 08/08/18 19:35 Dose: 300 mg Heparin Sodium (Porcine) (Heparin) 5,000 units SC Q8 [facility] Last Admin: 08/08/18 13:26 Dose: 5,000 units Insulin Aspart (Novolog) 25 unit SC TIDCC [facility] Last Admin: 08/08/18 19:35 Dose: 25 units Insulin Human Regular (Novolin R) 0 unit SC ACHS [facility]; Protocol Last Admin: 08/08/18 19:35 Dose: Not Given Lidocaine (Lidoderm) 1 ea TD DAILY [facility] Last Admin: 08/08/18 09:01 Dose: 1 ea Losartan Potassium (Cozaar) 25 mg PO DAILY [facility] Last Admin: 08/08/18 09:00 Dose: 25 mg Metoprolol Tartrate (Lopressor) 100 mg PO DAILY [facility] Last Admin: 08/08/18 09:00 Dose: 100 mg Nitroglycerin (Nitro-Bid 2% Oint) 1 ea TOP Q6H PRN PRN Reason: chest pain Pantoprazole Sodium (Protonix Ec Tab) 40 mg PO DAILY [facility] Last Admin: 08/08/18 09:00 Dose: 40 mg Prednisone (Prednisone Tab) 20 mg PO DAILY [facility] Last Admin: 08/08/18 19:35 Dose: 20 mg Promethazine HCl (Phenergan Syrup) 6.25 mg PO Q6H PRN PRN Reason: Cough Last Admin: 08/08/18 19:36 Dose: 6.25 mg Ranolazine (Ranexa) 500 mg PO BID [facility] Last Admin: 08/08/18 19:34 Dose: 500 mg Rosuvastatin Calcium (Crestor) 10 mg PO HS [facility] Last Admin: 08/07/18 21:45 Dose: 10 mg Tramadol HCl (Ultram) 25 mg PO BID PRN PRN Reason: Pain, moderate (4-7) Last Admin: 08/02/18 15:10 Dose: 25 mg Valacyclovir HCl (Valtrex) 1,000 mg PO BID [facility]; Protocol Stop: 08/15/18 18:01 Last Admin: 08/08/18 19:35 Dose: 1,000 mg - Labs Labs: 08/08/18 11:34 08/08/18 11:34 PT 10.9 SECONDS (9.7-12.2) 07/30/18 19:45 INR 1.0 07/30/18 19:45 APTT 27 SECONDS (21-34) 07/30/18 19:45
[2018-08-08] MEDS: Tramadol 25 mg PO PRN (23:00)
[2018-08-09] MEDS: Albuterol-Ipratrop 3 mg / 0.5 (3 ml) UD INH SCH ×4 (01:25→19:09)
[2018-08-09] MEDS: (Novolin R) Insulin Human Regular 100 units/ml vial SC SCH ×4 (07:00→22:20)
[2018-08-09] MEDS: Lidocaine 5% Patch TD SCH (09:00)
[2018-08-09] MEDS: Pantoprazole 40 mg EC Tab PO SCH (09:00)
[2018-08-09] MEDS: (Novolog) Insulin Aspart, Recombinant 100 u/ml 10 ml vial SC SCH ×3 (09:00→17:14)
[2018-08-09] MEDS: diltiaZEM 180 mg/24 Hours CD Cap PO SCH (09:01)
[2018-08-09] MEDS: Ranolazine 500 mg Extended Release Tablets PO SCH ×2 (09:01→17:14)
[2018-08-09] MEDS: Tramadol 25 mg PO PRN (12:52)
[2018-08-09] MEDS: Acyclovir 500 MG in Sodium Chloride 0.9% 100 ML IV SCH (18:41)
--- NOTE | 2018-08-09 20:15 | CP.PCM.PN ---
Subjective - Date & Time of Evaluation Date of Evaluation: 08/09/18 Time of Evaluation: 20:14 - Subjective Subjective: AFEBRILE, C/O COUGH C/O PAIN LT CHEST/BACK POSTERIORLY. S/P KELVIN PICC LINE PATIENT BE STARTED ON iv ACYCLOVIR 500 MG EVERY 8 HOURLY. iv CEFTRIAXONE 1 G EVERY 24 HOURLY. cASE DISCUSSED WITH THE STAFF. dc ORAL ANTIBIOTICS AND ANTIVIRALS. Objective - Vital Signs/Intake and Output Vital Signs (last 24 hours): Temp Pulse Resp BP Pulse Ox 97.6 F 66 20 136/82 97 08/09/18 15:00 08/09/18 15:00 08/09/18 15:00 08/09/18 15:00 08/09/18 15:00 - Medications Medications: Current Medications Acetaminophen (Tylenol 325mg Tab) 650 mg PO Q6 PRN PRN Reason: Fever >100.4 F Last Admin: 08/03/18 12:22 Dose: 650 mg Albuterol/Ipratropium (Duoneb 3 Mg/0.5 Mg (3 Ml) Ud) 3 ml INH RQ6 [facility] Last Admin: 08/09/18 19:09 Dose: Not Given Aspirin (Ecotrin) 81 mg PO DAILY [facility] Last Admin: 08/09/18 09:01 Dose: 81 mg Diltiazem HCl (Cardizem Cd) 180 mg PO DAILY [facility] Last Admin: 08/09/18 09:01 Dose: 180 mg Docusate Sodium (Colace) 100 mg PO BID [facility] Last Admin: 08/09/18 17:14 Dose: 100 mg Gabapentin (Neurontin) 300 mg PO TID [facility] Last Admin: 08/09/18 17:14 Dose: 300 mg Heparin Sodium (Porcine) (Heparin) 5,000 units SC Q8 [facility] Last Admin: 08/09/18 13:28 Dose: 5,000 units Acyclovir 500 mg/ Sodium (Chloride) 100 mls @ 100 mls/hr IV Q8H [facility]; Protocol Last Admin: 08/09/18 18:41 Dose: 100 mls/hr Ceftriaxone Sodium 1 gm/ (Sodium Chloride) 100 mls @ 100 mls/hr IVPB Q12H [facility]; Protocol Insulin Aspart (Novolog) 25 unit SC TIDCC [facility] Last Admin: 08/09/18 17:14 Dose: 25 units Insulin Human Regular (Novolin R) 0 unit SC ACHS [facility]; Protocol Last Admin: 08/09/18 17:15 Dose: 4 units Lidocaine (Lidoderm) 1 ea TD DAILY [facility] Last Admin: 08/09/18 09:00 Dose: 1 ea Losartan Potassium (Cozaar) 25 mg PO DAILY [facility] Last Admin: 08/09/18 09:01 Dose: 25 mg Metoprolol Tartrate (Lopressor) 100 mg PO DAILY [facility] Last Admin: 08/09/18 09:01 Dose: 100 mg Nitroglycerin (Nitro-Bid 2% Oint) 1 ea TOP Q6H PRN PRN Reason: chest pain Pantoprazole Sodium (Protonix Ec Tab) 40 mg PO DAILY [facility] Last Admin: 08/09/18 09:00 Dose: 40 mg Prednisone (Prednisone Tab) 20 mg PO DAILY [facility] Last Admin: 08/09/18 09:00 Dose: 20 mg Promethazine HCl (Phenergan Syrup) 6.25 mg PO Q6H PRN PRN Reason: Cough Last Admin: 08/08/18 19:36 Dose: 6.25 mg Ranolazine (Ranexa) 500 mg PO BID [facility] Last Admin: 08/09/18 17:14 Dose: 500 mg Rosuvastatin Calcium (Crestor) 10 mg PO HS [facility] Last Admin: 08/08/18 23:00 Dose: 10 mg Tramadol HCl (Ultram) 25 mg PO BID PRN PRN Reason: Pain, moderate (4-7) Last Admin: 08/09/18 12:52 Dose: 25 mg - Labs Labs: 08/08/18 11:34 08/08/18 11:34 PT 10.9 SECONDS (9.7-12.2) 07/30/18 19:45 INR 1.0 07/30/18 19:45 APTT 27 SECONDS (21-34) 07/30/18 19:45 - Constitutional Appears: No Acute Distress - Eye Exam Eye Exam: EOMI, PERRL - ENT Exam ENT Exam: Normal Oropharynx - Neck Exam Neck Exam: Normal Inspection - Respiratory Exam Respiratory Exam: Decreased Breath Sounds - Cardiovascular Exam Cardiovascular Exam: REGULAR RHYTHM, +S1, +S2 - GI/Abdominal Exam GI & Abdominal Exam: Soft, Normal Bowel Sounds. absent: Organomegaly - Extremities Exam Extremities Exam: Normal Capillary Refill. absent: Calf Tenderness, Pedal Edema - Neurological Exam Neurological Exam: Alert, Awake, CN II-XII Intact, Oriented x3, Reflexes Normal - Psychiatric Exam Psychiatric exam: Normal Mood - Skin Skin Exam: Normal Color, Rash (RASH EXTENSIVE WITH FEW BLISTERS PRESENT ON THE LT UPPER BACK.ANT CHEST LEISION SCABBING.), Warm Assessment and Plan (1) Herpes zoster Status: Acute (2) Chest pain, atypical Status: Acute (3) CAD (coronary artery disease) Status: Acute (4) Diabetes mellitus Status: Acute - Assessment and Plan (Free Text) Plan: restart IV ACYCLOVIR 500MG IVPB Q8HRLY 08/09/18 ON IV CEFOTRIAXONE 1GM IVPB [id number].08/09/18. patient on IV steroids / analgesics as per PMD. [place] /CONTACT PRECAUTIONS. DISCUSSED WITH THE STAFF..
[2018-08-09] MEDS: Promethazine 6.25 MG/5 ML CUP PO PRN (21:21)
[2018-08-10] MEDS: Albuterol-Ipratrop 3 mg / 0.5 (3 ml) UD INH SCH ×5 (01:44→20:45)
[2018-08-10] MEDS: Acyclovir 500 MG in Sodium Chloride 0.9% 100 ML IV SCH ×3 (02:03→17:06)
[2018-08-10] MEDS: Tramadol 25 mg PO PRN ×3 (02:49→22:30)
[2018-08-10] MEDS: (Novolin R) Insulin Human Regular 100 units/ml vial SC SCH ×5 (02:51→22:30)
[2018-08-10] MEDS: (Novolog) Insulin Aspart, Recombinant 100 u/ml 10 ml vial SC SCH ×3 (08:50→17:07)
[2018-08-10] MEDS: Lidocaine 5% Patch TD SCH (10:22)
[2018-08-10] MEDS: Pantoprazole 40 mg EC Tab PO SCH (10:22)
[2018-08-10] MEDS: Ranolazine 500 mg Extended Release Tablets PO SCH ×2 (10:22→17:01)
[2018-08-10] MEDS: diltiaZEM 180 mg/24 Hours CD Cap PO SCH (10:22)
--- NOTE | 2018-08-10 10:34 | CP.PCM.PN ---
Subjective - Date & Time of Evaluation Date of Evaluation: 08/10/18 Time of Evaluation: 10:34 - Subjective Subjective: Events reviewed Objective - Vital Signs/Intake and Output Vital Signs (last 24 hours): Temp Pulse Resp BP Pulse Ox 97.7 F 80 20 138/70 98 08/10/18 08:00 08/10/18 10:21 08/10/18 08:00 08/10/18 10:21 08/10/18 08:00 Intake and Output: 08/10/18 08/10/18 06:59 18:59 Intake Total 700 Balance 700 - Medications Medications: Current Medications Acetaminophen (Tylenol 325mg Tab) 650 mg PO Q6 PRN PRN Reason: Fever >100.4 F Last Admin: 08/03/18 12:22 Dose: 650 mg Albuterol/Ipratropium (Duoneb 3 Mg/0.5 Mg (3 Ml) Ud) 3 ml INH RQ6 [facility] Last Admin: 08/10/18 08:49 Dose: 3 ml Aspirin (Ecotrin) 81 mg PO DAILY [facility] Last Admin: 08/10/18 10:22 Dose: 81 mg Diltiazem HCl (Cardizem Cd) 180 mg PO DAILY [facility] Last Admin: 08/10/18 10:22 Dose: 180 mg Docusate Sodium (Colace) 100 mg PO BID [facility] Last Admin: 08/10/18 10:23 Dose: 100 mg Gabapentin (Neurontin) 300 mg PO TID [facility] Last Admin: 08/10/18 10:22 Dose: 300 mg Heparin Sodium (Porcine) (Heparin) 5,000 units SC Q8 [facility] Last Admin: 08/10/18 06:26 Dose: 5,000 units Acyclovir 500 mg/ Sodium (Chloride) 100 mls @ 100 mls/hr IV Q8H [facility]; Protocol Last Admin: 08/10/18 10:27 Dose: 100 mls/hr Ceftriaxone Sodium 1 gm/ (Sodium Chloride) 100 mls @ 100 mls/hr IVPB Q12H [facility]; Protocol Last Admin: 08/10/18 08:51 Dose: 100 mls/hr Insulin Aspart (Novolog) 25 unit SC TIDCC [facility] Last Admin: 08/10/18 08:50 Dose: 25 units Insulin Human Regular (Novolin R) 0 unit SC ACHS [facility]; Protocol Last Admin: 08/10/18 08:30 Dose: 6 units Lidocaine (Lidoderm) 1 ea TD DAILY [facility] Last Admin: 08/10/18 10:22 Dose: 1 ea Losartan Potassium (Cozaar) 25 mg PO DAILY [facility] Last Admin: 08/10/18 10:22 Dose: 25 mg Metoprolol Tartrate (Lopressor) 100 mg PO DAILY [facility] Last Admin: 08/10/18 10:22 Dose: 100 mg Nitroglycerin (Nitro-Bid 2% Oint) 1 ea TOP Q6H PRN PRN Reason: chest pain Pantoprazole Sodium (Protonix Ec Tab) 40 mg PO DAILY [facility] Last Admin: 08/10/18 10:22 Dose: 40 mg Prednisone (Prednisone Tab) 20 mg PO DAILY [facility] Last Admin: 08/10/18 10:22 Dose: 20 mg Promethazine HCl (Phenergan Syrup) 6.25 mg PO Q6H PRN PRN Reason: Cough Last Admin: 08/09/18 21:21 Dose: 6.25 mg Ranolazine (Ranexa) 500 mg PO BID [facility] Last Admin: 08/10/18 10:22 Dose: 500 mg Rosuvastatin Calcium (Crestor) 10 mg PO HS [facility] Last Admin: 08/09/18 21:21 Dose: 10 mg Tramadol HCl (Ultram) 25 mg PO BID PRN PRN Reason: Pain, moderate (4-7) Last Admin: 08/10/18 10:23 Dose: 25 mg - Labs Labs: 08/08/18 11:34 08/08/18 11:34 PT 10.9 SECONDS (9.7-12.2) 07/30/18 19:45 INR 1.0 07/30/18 19:45 APTT 27 SECONDS (21-34) 07/30/18 19:45 Assessment and Plan - Assessment and Plan (Free Text) Assessment: - Constitutional Appears: No Acute Distress - Head Exam Head Exam: ATRAUMATIC, NORMAL INSPECTION, NORMOCEPHALIC - Eye Exam Eye Exam: EOMI, Normal appearance. absent: Scleral icterus - ENT Exam ENT Exam: Mucous Membranes Moist, Normal Oropharynx - Neck Exam Neck Exam: Full ROM, Normal Inspection - Respiratory Exam Respiratory Exam: Clear to Ausculation Bilateral, NORMAL BREATHING PATTERN. abs ent: Rales, Rhonchi, Wheezes - Cardiovascular Exam Cardiovascular Exam: REGULAR RHYTHM, RRR, +S1, +S2 - GI/Abdominal Exam GI & Abdominal Exam: Soft, Normal Bowel Sounds. absent: Organomegaly - Extremities Exam Extremities Exam: Normal Inspection, Pedal Edema. absent: Calf Tenderness - Neurological Exam Neurological Exam: Alert, Awake, Oriented x3 - Psychiatric Exam Psychiatric exam: Normal Affect, Normal Mood - Skin Skin Exam: Rash (VZV rash L. breat and axilla/scapular) Assessment and Plan - Assessment and Plan (Free Text) Assessment: CP - Atypical; non cardiac due to varicella infection - steroids, ID, Acyclovir, ceftriaxone - improved - IL ruled out - ECHO images directly viewed by me: Low-normal LVEF, unchanged from my office echo LVH, mod LAE, mild PASP ~40mmHG, no MS or Mild MR, TR - EKG: Known chronic LBBB - cont medical therapy with ASA, statin and beta-tanya, ranexa HTN - initially high, now labile elevated - diltiazem 180, metoprolol 100, suggest increase losartan to 50, may need hydralazine - low salt diet -> EDEMA in legs: resume bumetanide 2mg daily - dvt prophylaxis LIPIDS - cont crestor LBBB - chronic unchanged DM - uncontrolled - consider neuropathy as cause of sxs
--- NOTE | 2018-08-10 20:19 | CP.PCM.PN ---
Subjective - Date & Time of Evaluation Date of Evaluation: 08/10/18 Time of Evaluation: 19:59 - Subjective Subjective: AFEBRILE, C/O TOO MUCH PAIN LT CHEST/BACK POSTERIORLY. S/P KELVIN PICC LINE-WORKING FINE PATIENT BE STARTED ON iv ACYCLOVIR 500 MG EVERY 8 HOURLY. 08/09/18 iv CEFTRIAXONE 1 G EVERY 24 HOURLY. Objective - Vital Signs/Intake and Output Vital Signs (last 24 hours): Temp Pulse Resp BP Pulse Ox 97.8 F 70 20 122/81 97 08/10/18 15:00 08/10/18 15:00 08/10/18 15:00 08/10/18 15:00 08/10/18 15:00 - Medications Medications: Current Medications Acetaminophen (Tylenol 325mg Tab) 650 mg PO Q6 PRN PRN Reason: Fever >100.4 F Last Admin: 08/03/18 12:22 Dose: 650 mg Albuterol/Ipratropium (Duoneb 3 Mg/0.5 Mg (3 Ml) Ud) 3 ml INH RQ6 [facility] Last Admin: 08/10/18 13:23 Dose: 3 ml Aspirin (Ecotrin) 81 mg PO DAILY [facility] Last Admin: 08/10/18 10:22 Dose: 81 mg Diltiazem HCl (Cardizem Cd) 180 mg PO DAILY [facility] Last Admin: 08/10/18 10:22 Dose: 180 mg Docusate Sodium (Colace) 100 mg PO BID [facility] Last Admin: 08/10/18 17:02 Dose: 100 mg Gabapentin (Neurontin) 300 mg PO TID [facility] Last Admin: 08/10/18 17:01 Dose: 300 mg Heparin Sodium (Porcine) (Heparin) 5,000 units SC Q8 [facility] Last Admin: 08/10/18 13:06 Dose: 5,000 units Acyclovir 500 mg/ Sodium (Chloride) 100 mls @ 100 mls/hr IV Q8H [facility]; Protocol Last Admin: 08/10/18 17:06 Dose: 100 mls/hr Ceftriaxone Sodium 1 gm/ (Sodium Chloride) 100 mls @ 100 mls/hr IVPB Q12H [facility]; Protocol Last Admin: 08/10/18 19:08 Dose: 100 mls/hr Insulin Aspart (Novolog) 25 unit SC TIDCC [facility] Last Admin: 08/10/18 17:07 Dose: 25 units Insulin Human Regular (Novolin R) 0 unit SC ACHS [facility]; Protocol Last Admin: 08/10/18 17:07 Dose: 6 units Lactulose (Enulose) 20 gm PO HS [facility] Lidocaine (Lidoderm) 1 ea TD DAILY [facility] Last Admin: 08/10/18 10:22 Dose: 1 ea Losartan Potassium (Cozaar) 25 mg PO DAILY [facility] Last Admin: 08/10/18 10:22 Dose: 25 mg Metoprolol Tartrate (Lopressor) 100 mg PO DAILY [facility] Last Admin: 08/10/18 10:22 Dose: 100 mg Nitroglycerin (Nitro-Bid 2% Oint) 1 ea TOP Q6H PRN PRN Reason: chest pain Pantoprazole Sodium (Protonix Ec Tab) 40 mg PO DAILY [facility] Last Admin: 08/10/18 10:22 Dose: 40 mg Prednisone (Prednisone Tab) 20 mg PO DAILY [facility] Last Admin: 08/10/18 10:22 Dose: 20 mg Promethazine HCl (Phenergan Syrup) 6.25 mg PO Q6H PRN PRN Reason: Cough Last Admin: 08/09/18 21:21 Dose: 6.25 mg Ranolazine (Ranexa) 500 mg PO BID [facility] Last Admin: 08/10/18 17:01 Dose: 500 mg Rosuvastatin Calcium (Crestor) 10 mg PO HS [facility] Last Admin: 08/09/18 21:21 Dose: 10 mg Tramadol HCl (Ultram) 25 mg PO BID PRN PRN Reason: Pain, moderate (4-7) Last Admin: 08/10/18 10:23 Dose: 25 mg - Labs Labs: 08/08/18 11:34 08/08/18 11:34 PT 10.9 SECONDS (9.7-12.2) 07/30/18 19:45 INR 1.0 07/30/18 19:45 APTT 27 SECONDS (21-34) 07/30/18 19:45 - Constitutional Appears: No Acute Distress, In Acute Distress - Head Exam Head Exam: NORMAL INSPECTION - Eye Exam Eye Exam: EOMI, PERRL - ENT Exam ENT Exam: Mucous Membranes Moist, Normal Oropharynx - Neck Exam Neck Exam: Normal Inspection - Respiratory Exam Respiratory Exam: Clear to Ausculation Bilateral, NORMAL BREATHING PATTERN - Cardiovascular Exam Cardiovascular Exam: Tachycardia, REGULAR RHYTHM, +S1, +S2 - GI/Abdominal Exam GI & Abdominal Exam: Soft, Normal Bowel Sounds - Extremities Exam Extremities Exam: Normal Capillary Refill. absent: Calf Tenderness, Pedal Edema - Neurological Exam Neurological Exam: Alert, Awake, CN II-XII Intact, Normal Gait, Oriented x3 - Psychiatric Exam Psychiatric exam: Anxious, Normal Mood - Skin Skin Exam: Normal Color, Rash (IMPROVING VERY SLOWLY) Assessment and Plan (1) Herpes zoster Status: Acute (2) Chest pain, atypical Status: Acute (3) CAD (coronary artery disease) Status: Acute (4) Diabetes mellitus Status: Acute - Assessment and Plan (Free Text) Plan: CONTINUE IV ACYCLOVIR 500MG IVPB Q8HRLY 08/09/18 ON IV CEFOTRIAXONE 1GM IVPB [id number].08/09/18. patient on IV steroids / analgesics as per PMD. CONTACT PRECAUTIONS. DISCUSSED WITH THE STAFF/PMD.
[2018-08-11] MEDS: Albuterol-Ipratrop 3 mg / 0.5 (3 ml) UD INH SCH ×4 (01:40→19:31)
[2018-08-11] MEDS: Acyclovir 500 MG in Sodium Chloride 0.9% 100 ML IV SCH ×3 (02:05→18:17)
[2018-08-11] MEDS: Tramadol 25 mg PO PRN ×2 (05:12→11:00)
[2018-08-11] MEDS: (Novolin R) Insulin Human Regular 100 units/ml vial SC SCH ×4 (07:40→21:29)
[2018-08-11] MEDS: (Novolog) Insulin Aspart, Recombinant 100 u/ml 10 ml vial SC SCH ×3 (07:40→18:18)
[2018-08-11] MEDS: Pantoprazole 40 mg EC Tab PO SCH (10:50)
[2018-08-11] MEDS: diltiaZEM 180 mg/24 Hours CD Cap PO SCH (10:50)
[2018-08-11] MEDS: Lidocaine 5% Patch TD SCH (10:51)
[2018-08-11] MEDS: Ranolazine 500 mg Extended Release Tablets PO SCH ×2 (10:51→18:17)
[2018-08-11] MEDS: Promethazine 6.25 MG/5 ML CUP PO PRN ×2 (11:01→18:17)
--- NOTE | 2018-08-11 16:20 | CARD ---
APPROVED REPORT Date of service: 07/30/2018 EKG Measurement Heart [id number] <Conclusion> Normal sinus rhythm Left axis deviation Nonspecific intraventricular block Inferior infarct, age undetermined Anterolateral infarct, age undetermined Abnormal ECG
--- NOTE | 2018-08-11 22:34 | CP.PCM.PN ---
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 Objective - Vital Signs/Intake and Output Vital Signs (last 24 hours): Temp Pulse Resp BP Pulse Ox 97.8 F 83 20 161/70 H 100 08/11/18 07:30 08/11/18 07:30 08/11/18 07:30 08/11/18 07:30 08/11/18 07:30 - Medications Medications: Current Medications Acetaminophen (Tylenol 325mg Tab) 650 mg PO Q6 PRN PRN Reason: Fever >100.4 F Last Admin: 08/03/18 12:22 Dose: 650 mg Albuterol/Ipratropium (Duoneb 3 Mg/0.5 Mg (3 Ml) Ud) 3 ml INH RQ6 [facility] Last Admin: 08/11/18 19:31 Dose: 3 ml Aspirin (Ecotrin) 81 mg PO DAILY [facility] Last Admin: 08/11/18 10:50 Dose: 81 mg Diltiazem HCl (Cardizem Cd) 180 mg PO DAILY [facility] Last Admin: 08/11/18 10:50 Dose: 180 mg Docusate Sodium (Colace) 100 mg PO BID [facility] Last Admin: 08/11/18 18:17 Dose: 100 mg Gabapentin (Neurontin) 400 mg PO TID [facility] Last Admin: 08/11/18 18:17 Dose: 400 mg Heparin Sodium (Porcine) (Heparin) 5,000 units SC Q8 [facility] Last Admin: 08/11/18 21:28 Dose: 5,000 units Acyclovir 500 mg/ Sodium (Chloride) 100 mls @ 100 mls/hr IV Q8H [facility]; Protocol Last Admin: 08/11/18 18:17 Dose: 100 mls/hr Ceftriaxone Sodium 1 gm/ (Sodium Chloride) 100 mls @ 100 mls/hr IVPB Q12H [facility]; Protocol Last Admin: 08/11/18 20:15 Dose: 100 mls/hr Insulin Aspart (Novolog) 25 unit SC TIDCC [facility] Last Admin: 08/11/18 18:18 Dose: 25 units Insulin Human Regular (Novolin R) 0 unit SC ACHS [facility]; Protocol Last Admin: 08/11/18 21:29 Dose: Not Given Lactulose (Enulose) 20 gm PO HS [facility] Last Admin: 08/11/18 21:29 Dose: 20 gm Lidocaine (Lidoderm) 1 ea TD DAILY [facility] Last Admin: 08/11/18 10:51 Dose: 1 ea Losartan Potassium (Cozaar) 25 mg PO DAILY [facility] Last Admin: 08/11/18 10:50 Dose: 25 mg Metoprolol Tartrate (Lopressor) 100 mg PO DAILY [facility] Last Admin: 08/11/18 10:50 Dose: 100 mg Nitroglycerin (Nitro-Bid 2% Oint) 1 ea TOP Q6H PRN PRN Reason: chest pain Pantoprazole Sodium (Protonix Ec Tab) 40 mg PO DAILY [facility] Last Admin: 08/11/18 10:50 Dose: 40 mg Prednisone (Prednisone Tab) 20 mg PO DAILY [facility] Last Admin: 08/11/18 10:50 Dose: 20 mg Promethazine HCl (Phenergan Syrup) 6.25 mg PO Q6H PRN PRN Reason: Cough Last Admin: 08/11/18 18:17 Dose: 6.25 mg Ranolazine (Ranexa) 500 mg PO BID [facility] Last Admin: 08/11/18 18:17 Dose: 500 mg Rosuvastatin Calcium (Crestor) 10 mg PO HS [facility] Last Admin: 08/11/18 21:28 Dose: 10 mg Tramadol HCl (Ultram) 50 mg PO BID PRN PRN Reason: Pain, moderate (4-7) Last Admin: 08/11/18 21:28 Dose: 50 mg - Labs Labs: 08/08/18 11:34 08/08/18 11:34 PT 10.9 SECONDS (9.7-12.2) 07/30/18 19:45 INR 1.0 07/30/18 19:45 APTT 27 SECONDS (21-34) 07/30/18 19:45 - Constitutional Appears: No Acute Distress - Head Exam Head Exam: NORMAL INSPECTION - Eye Exam Eye Exam: EOMI, PERRL. absent: Scleral icterus - ENT Exam ENT Exam: Mucous Membranes Moist, Normal Oropharynx - Neck Exam Neck Exam: Normal Inspection. absent: Meningismus - Respiratory Exam Respiratory Exam: Clear to Ausculation Bilateral, NORMAL BREATHING PATTERN - Cardiovascular Exam Cardiovascular Exam: REGULAR RHYTHM, +S1, +S2 - GI/Abdominal Exam GI & Abdominal Exam: Soft, Normal Bowel Sounds. absent: Organomegaly - Extremities Exam Extremities Exam: Normal Capillary Refill. absent: Calf Tenderness, Pedal Edema - Neurological Exam Neurological Exam: Alert, Awake, CN II-XII Intact, Oriented x3, Reflexes Normal - Psychiatric Exam Psychiatric exam: Normal Mood - Skin Skin Exam: Normal Color, Warm Assessment and Plan (1) Herpes zoster Status: Acute (2) Chest pain, atypical Status: Acute (3) CAD (coronary artery disease) Status: Acute (4) Diabetes mellitus Status: Acute - Assessment and Plan (Free Text) Plan: CONTINUE IV ACYCLOVIR 500MG IVPB Q8HRLY 08/09/18 ON IV CEFOTRIAXONE 1GM IVPB [id number]/09/18. patient on IV steroids / analgesics as per PMD. CONTACT PRECAUTIONS. F/U BLOOD WORKS. DISCUSSED WITH DR ROMANO.
[2018-08-12] MEDS: Albuterol-Ipratrop 3 mg / 0.5 (3 ml) UD INH SCH ×4 (02:00→19:43)
[2018-08-12] MEDS: Acyclovir 500 MG in Sodium Chloride 0.9% 100 ML IV SCH ×3 (02:53→19:11)
[2018-08-12] MEDS: (Novolog) Insulin Aspart, Recombinant 100 u/ml 10 ml vial SC SCH ×3 (07:49→19:12)
[2018-08-12] MEDS: (Novolin R) Insulin Human Regular 100 units/ml vial SC SCH ×4 (07:50→22:08)
[2018-08-12 08:21] LABS: BASO % 0.3 % (0.0-2.0); EOS # 0.1 K/uL (0.0-0.7); EOS % 1.1 % (0.0-4.0); LYMPH # 3.2 K/uL (1.0-4.3); MEAN CELL VOLUME 77.4 fL (81.0-99.0); MEAN CORPUSCULAR HEMOGLOBIN 25.7 pg (27.0-31.0); MEAN CORPUSCULAR HGB CONC 33.2 g/dL (33.0-37.0); MEAN PLATELET VOLUME 9.5 fL (7.2-11.7); NEUT # 5.6 K/uL (1.8-7.0); NEUT % 56.6 % (50.0-75.0); RBC 3.89 Mil/uL (3.80-5.20); RED CELL DISTRIBUTION WIDTH 15.4 % (11.5-14.5); WHITE BLOOD COUNT 9.9 K/uL (4.8-10.8)
[2018-08-12 08:36] LABS: ALB/GLOB RATIO 1.3 (1.0-2.1); ALBUMIN 3.2 g/dL (3.5-5.0); ALT/SGPT 31 U/L (9-52); AST/SGOT 25 U/L (14-36); BLOOD UREA NITROGEN 24 mg/dL (7-17); CALCIUM 9.1 mg/dl (8.6-10.4); GFR NON-AFRICAN AMERICAN > 60
[2018-08-12] MEDS: diltiaZEM 180 mg/24 Hours CD Cap PO SCH (09:54)
[2018-08-12] MEDS: Pantoprazole 40 mg EC Tab PO SCH (09:55)
[2018-08-12] MEDS: Lidocaine 5% Patch TD SCH (09:56)
[2018-08-12] MEDS: Ranolazine 500 mg Extended Release Tablets PO SCH ×2 (10:00→19:13)
[2018-08-12] MEDS: Promethazine 6.25 MG/5 ML CUP PO PRN (19:13)
[2018-08-13] MEDS: Albuterol-Ipratrop 3 mg / 0.5 (3 ml) UD INH SCH ×3 (01:10→13:35)
[2018-08-13] MEDS: Acyclovir 500 MG in Sodium Chloride 0.9% 100 ML IV SCH ×3 (01:31→18:54)
[2018-08-13] MEDS: (Novolin R) Insulin Human Regular 100 units/ml vial SC SCH ×4 (08:30→21:39)
--- NOTE | 2018-08-13 08:51 | CP.PCM.PN ---
Subjective - Date & Time of Evaluation Date of Evaluation: 08/12/18 Time of Evaluation: 08:51 - Subjective Subjective: still having pain seen by ID f/ by ID Objective - Vital Signs/Intake and Output Vital Signs (last 24 hours): Temp Pulse Resp BP Pulse Ox 97.9 F 74 20 142/86 96 08/13/18 07:00 08/13/18 07:00 08/13/18 07:00 08/13/18 07:00 08/13/18 07:00 - Medications Medications: Current Medications Acetaminophen (Tylenol 325mg Tab) 650 mg PO Q6 PRN PRN Reason: Fever >100.4 F Last Admin: 08/03/18 12:22 Dose: 650 mg Albuterol/Ipratropium (Duoneb 3 Mg/0.5 Mg (3 Ml) Ud) 3 ml INH RQ6 [facility] Last Admin: 08/13/18 01:10 Dose: 3 ml Aspirin (Ecotrin) 81 mg PO DAILY [facility] Last Admin: 08/12/18 09:55 Dose: 81 mg Diltiazem HCl (Cardizem Cd) 180 mg PO DAILY [facility] Last Admin: 08/12/18 09:54 Dose: 180 mg Docusate Sodium (Colace) 100 mg PO BID [facility] Last Admin: 08/12/18 19:13 Dose: 100 mg Gabapentin (Neurontin) 400 mg PO TID [facility] Last Admin: 08/12/18 19:14 Dose: 400 mg Heparin Sodium (Porcine) (Heparin) 5,000 units SC Q8 [facility] Last Admin: 08/13/18 05:18 Dose: 5,000 units Acyclovir 500 mg/ Sodium (Chloride) 100 mls @ 100 mls/hr IV Q8H [facility]; Protocol Last Admin: 08/13/18 01:31 Dose: 100 mls/hr Ceftriaxone Sodium 1 gm/ (Sodium Chloride) 100 mls @ 100 mls/hr IVPB Q12H [facility]; Protocol Last Admin: 08/13/18 07:41 Dose: 100 mls/hr Insulin Aspart (Novolog) 25 unit SC TIDCC [facility] Last Admin: 08/12/18 19:12 Dose: 25 units Insulin Human Regular (Novolin R) 0 unit SC ACHS [facility]; Protocol Last Admin: 08/12/18 22:08 Dose: Not Given Lactulose (Enulose) 20 gm PO HS [facility] Last Admin: 08/12/18 23:00 Dose: 20 gm Lidocaine (Lidoderm) 1 ea TD DAILY [facility] Last Admin: 08/12/18 09:56 Dose: 1 ea Losartan Potassium (Cozaar) 25 mg PO DAILY [facility] Last Admin: 08/12/18 09:56 Dose: Not Given Metoprolol Tartrate (Lopressor) 100 mg PO DAILY [facility] Last Admin: 08/12/18 09:55 Dose: Not Given Nitroglycerin (Nitro-Bid 2% Oint) 1 ea TOP Q6H PRN PRN Reason: chest pain Last Admin: 08/12/18 03:39 Dose: 1 ea Pantoprazole Sodium (Protonix Ec Tab) 40 mg PO DAILY [facility] Last Admin: 08/12/18 09:55 Dose: 40 mg Prednisone (Prednisone Tab) 20 mg PO DAILY [facility] Last Admin: 08/12/18 09:57 Dose: 20 mg Promethazine HCl (Phenergan Syrup) 6.25 mg PO Q6H PRN PRN Reason: Cough Last Admin: 08/12/18 19:13 Dose: 6.25 mg Ranolazine (Ranexa) 500 mg PO BID [facility] Last Admin: 08/12/18 19:13 Dose: 500 mg Rosuvastatin Calcium (Crestor) 10 mg PO HS [facility] Last Admin: 08/12/18 23:00 Dose: 10 mg Tramadol HCl (Ultram) 50 mg PO BID PRN PRN Reason: Pain, moderate (4-7) Last Admin: 08/13/18 05:25 Dose: 50 mg - Labs Labs: 08/12/18 08:02 08/12/18 08:02 PT 10.9 SECONDS (9.7-12.2) 07/30/18 19:45 INR 1.0 07/30/18 19:45 APTT 27 SECONDS (21-34) 07/30/18 19:45
[2018-08-13] MEDS: (Novolog) Insulin Aspart, Recombinant 100 u/ml 10 ml vial SC SCH ×3 (09:11→18:55)
[2018-08-13] MEDS: Ranolazine 500 mg Extended Release Tablets PO SCH ×2 (09:34→18:54)
[2018-08-13] MEDS: diltiaZEM 180 mg/24 Hours CD Cap PO SCH (09:35)
[2018-08-13] MEDS: Pantoprazole 40 mg EC Tab PO SCH (09:35)
[2018-08-13] MEDS: Lidocaine 5% Patch TD SCH (09:35)
[2018-08-13] MEDS ORDERED: Aluminum Hydroxide/Magnesium Hydroxide Susp (30 mL) PO ONE (14:30)
--- NOTE | 2018-08-13 15:10 | CP.PCM.PN ---
Subjective - Date & Time of Evaluation Date of Evaluation: 08/13/18 Time of Evaluation: 15:10 - Subjective Subjective: AFEBRILE, OOB ON CHAIR. RASH SLOWLY IMPROVING BUT MULTIDERMATOMAL RASH POSTERIOR CHEST LEFT SIDED IMPROVING AND DRYING UP. CCONTINUES TO COMPLAIN OF PAIN ON ANALGESICS, GABAPANTIN, STEROIDS ON IV ACYCLOVIR/AND IV CEFOTRIAXONE. LABS ; REVIEWED BS -HIGH rENAL FUNCTIONS OKAY Objective - Vital Signs/Intake and Output Vital Signs (last 24 hours): Temp Pulse Resp BP Pulse Ox 97.9 F 79 20 152/85 H 96 08/13/18 07:00 08/13/18 09:32 08/13/18 07:00 08/13/18 09:32 08/13/18 07:00 - Medications Medications: Current Medications Acetaminophen (Tylenol 325mg Tab) 650 mg PO Q6 PRN PRN Reason: Fever >100.4 F Last Admin: 08/03/18 12:22 Dose: 650 mg Albuterol/Ipratropium (Duoneb 3 Mg/0.5 Mg (3 Ml) Ud) 3 ml INH RQ6 [facility] Last Admin: 08/13/18 13:35 Dose: 3 ml Aspirin (Ecotrin) 81 mg PO DAILY [facility] Last Admin: 08/13/18 09:35 Dose: 81 mg Diltiazem HCl (Cardizem Cd) 180 mg PO DAILY [facility] Last Admin: 08/13/18 09:35 Dose: 180 mg Docusate Sodium (Colace) 100 mg PO BID [facility] Last Admin: 08/13/18 09:34 Dose: 100 mg Heparin Sodium (Porcine) (Heparin) 5,000 units SC Q8 [facility] Last Admin: 08/13/18 13:04 Dose: 5,000 units Acyclovir 500 mg/ Sodium (Chloride) 100 mls @ 100 mls/hr IV Q8H [facility]; Protocol Last Admin: 08/13/18 09:32 Dose: 100 mls/hr Ceftriaxone Sodium 1 gm/ (Sodium Chloride) 100 mls @ 100 mls/hr IVPB Q12H [facility]; Protocol Last Admin: 08/13/18 07:41 Dose: 100 mls/hr Insulin Aspart (Novolog) 25 unit SC TIDCC [facility] Last Admin: 08/13/18 13:00 Dose: 25 units Insulin Human Regular (Novolin R) 0 unit SC ACHS [facility]; Protocol Last Admin: 08/13/18 12:30 Dose: 3 units Lactulose (Enulose) 20 gm PO HS [facility] Last Admin: 08/12/18 23:00 Dose: 20 gm Lidocaine (Lidoderm) 1 ea TD DAILY [facility] Last Admin: 08/13/18 09:35 Dose: 1 ea Losartan Potassium (Cozaar) 25 mg PO DAILY [facility] Last Admin: 08/13/18 09:34 Dose: 25 mg Metoprolol Tartrate (Lopressor) 100 mg PO DAILY [facility] Last Admin: 08/13/18 09:35 Dose: 100 mg Nitroglycerin (Nitro-Bid 2% Oint) 1 ea TOP Q6H PRN PRN Reason: chest pain Last Admin: 08/12/18 03:39 Dose: 1 ea Pantoprazole Sodium (Protonix Ec Tab) 40 mg PO DAILY [facility] Last Admin: 08/13/18 09:35 Dose: 40 mg Prednisone (Prednisone Tab) 20 mg PO DAILY [facility] Last Admin: 08/13/18 09:35 Dose: 20 mg Pregabalin (Lyrica) 75 mg PO BID [facility] Last Admin: 08/13/18 09:34 Dose: 75 mg Promethazine HCl (Phenergan Syrup) 6.25 mg PO Q6H PRN PRN Reason: Cough Last Admin: 08/12/18 19:13 Dose: 6.25 mg Ranolazine (Ranexa) 500 mg PO BID [facility] Last Admin: 08/13/18 09:34 Dose: 500 mg Rosuvastatin Calcium (Crestor) 10 mg PO HS [facility] Last Admin: 08/12/18 23:00 Dose: 10 mg Tramadol HCl (Ultram) 50 mg PO BID PRN PRN Reason: Pain, moderate (4-7) Last Admin: 08/13/18 05:25 Dose: 50 mg - Labs Labs: 08/12/18 08:02 08/12/18 08:02 PT 10.9 SECONDS (9.7-12.2) 07/30/18 19:45 INR 1.0 07/30/18 19:45 APTT 27 SECONDS (21-34) 07/30/18 19:45 - Constitutional Appears: No Acute Distress - Head Exam Head Exam: NORMAL INSPECTION - Eye Exam Eye Exam: EOMI, PERRL - ENT Exam ENT Exam: Normal Oropharynx - Neck Exam Neck Exam: Normal Inspection - Respiratory Exam Respiratory Exam: Clear to Ausculation Bilateral - Cardiovascular Exam Cardiovascular Exam: REGULAR RHYTHM, +S1, +S2 - Extremities Exam Extremities Exam: Normal Capillary Refill. absent: Calf Tenderness, Pedal Edema - Neurological Exam Neurological Exam: Awake, CN II-XII Intact, Normal Gait, Oriented x3, Reflexes Normal - Psychiatric Exam Psychiatric exam: Normal Mood - Skin Skin Exam: Normal Color, Rash (IMPROVING. lESIONS SCABBING OVER.), Warm Assessment and Plan (1) Herpes zoster Status: Acute (2) Chest pain, atypical Status: Acute (3) CAD (coronary artery disease) Status: Acute (4) Diabetes mellitus Status: Acute - Assessment and Plan (Free Text) Plan: CONTINUE IV ACYCLOVIR 500MG IVPB Q8HRLY 08/09/18 X 2MOREDAYS ON IV CEFOTRIAXONE 1GM IVPB [id number]/09/18 X 2 MORE DAYS patient on PO steroids Analgesics as per PMD. CONTACT PRECAUTIONS. FOR POSSIBLE DISCHARGE 0N 08/15/17 AM
[2018-08-14] MEDS: Acyclovir 500 MG in Sodium Chloride 0.9% 100 ML IV SCH ×3 (01:11→17:46)
[2018-08-14] MEDS: Albuterol-Ipratrop 3 mg / 0.5 (3 ml) UD INH SCH ×4 (01:41→20:54)
[2018-08-14] MEDS: (Novolin R) Insulin Human Regular 100 units/ml vial SC SCH ×4 (08:30→21:27)
[2018-08-14] MEDS: (Novolog) Insulin Aspart, Recombinant 100 u/ml 10 ml vial SC SCH ×3 (08:49→17:46)
[2018-08-14] MEDS: Lidocaine 5% Patch TD SCH (09:31)
[2018-08-14] MEDS: diltiaZEM 180 mg/24 Hours CD Cap PO SCH (09:31)
[2018-08-14] MEDS: Pantoprazole 40 mg EC Tab PO SCH (09:32)
[2018-08-14] MEDS: Ranolazine 500 mg Extended Release Tablets PO SCH ×2 (09:32→17:45)
--- NOTE | 2018-08-14 18:23 | CP.PCM.PN ---
Subjective - Date & Time of Evaluation Date of Evaluation: 08/14/18 Time of Evaluation: 18:23 - Subjective Subjective: AFEBRILE, RASH MUCH IMPROVED. CASE DISCUSSED WITH DR CONKLIN( PHYSCIAN ADVISER ) DISCUSSED PT FOR DC IN AM Objective - Vital Signs/Intake and Output Vital Signs (last 24 hours): Temp Pulse Resp BP Pulse Ox 97.3 F L 73 20 147/82 97 08/14/18 16:36 08/14/18 16:36 08/14/18 16:36 08/14/18 16:36 08/14/18 16:36 - Medications Medications: Current Medications Acetaminophen (Tylenol 325mg Tab) 650 mg PO Q6 PRN PRN Reason: Fever >100.4 F Last Admin: 08/14/18 05:17 Dose: 650 mg Albuterol/Ipratropium (Duoneb 3 Mg/0.5 Mg (3 Ml) Ud) 3 ml INH RQ6 [facility] Last Admin: 08/14/18 13:35 Dose: 3 ml Aspirin (Ecotrin) 81 mg PO DAILY [facility] Last Admin: 08/14/18 09:31 Dose: 81 mg Diltiazem HCl (Cardizem Cd) 180 mg PO DAILY [facility] Last Admin: 08/14/18 09:31 Dose: 180 mg Docusate Sodium (Colace) 100 mg PO BID [facility] Last Admin: 08/14/18 17:45 Dose: 100 mg Acyclovir 500 mg/ Sodium (Chloride) 100 mls @ 100 mls/hr IV Q8H [facility]; Protocol Last Admin: 08/14/18 17:46 Dose: 100 mls/hr Ceftriaxone Sodium 1 gm/ (Sodium Chloride) 100 mls @ 100 mls/hr IVPB Q12H [facility]; Protocol Last Admin: 08/14/18 08:49 Dose: 100 mls/hr Insulin Aspart (Novolog) 25 unit SC TIDCC [facility] Last Admin: 08/14/18 17:46 Dose: 25 units Insulin Human Regular (Novolin R) 0 unit SC ACHS [facility]; Protocol Last Admin: 08/14/18 17:46 Dose: 6 units Lactulose (Enulose) 20 gm PO HS [facility] Last Admin: 08/13/18 21:37 Dose: 20 gm Lidocaine (Lidoderm) 1 ea TD DAILY [facility] Last Admin: 08/14/18 09:31 Dose: 1 ea Losartan Potassium (Cozaar) 25 mg PO DAILY [facility] Last Admin: 08/14/18 09:32 Dose: 25 mg Metoprolol Tartrate (Lopressor) 100 mg PO DAILY [facility] Last Admin: 08/14/18 09:32 Dose: 100 mg Nitroglycerin (Nitro-Bid 2% Oint) 1 ea TOP Q6H PRN PRN Reason: chest pain Last Admin: 08/12/18 03:39 Dose: 1 ea Pantoprazole Sodium (Protonix Ec Tab) 40 mg PO DAILY [facility] Last Admin: 08/14/18 09:32 Dose: 40 mg Prednisone (Prednisone Tab) 20 mg PO DAILY [facility] Last Admin: 08/14/18 09:32 Dose: 20 mg Pregabalin (Lyrica) 75 mg PO BID [facility] Last Admin: 08/14/18 17:46 Dose: 75 mg Promethazine HCl (Phenergan Syrup) 6.25 mg PO Q6H PRN PRN Reason: Cough Last Admin: 08/12/18 19:13 Dose: 6.25 mg Ranolazine (Ranexa) 500 mg PO BID [facility] Last Admin: 08/14/18 17:45 Dose: 500 mg Rosuvastatin Calcium (Crestor) 10 mg PO HS [facility] Last Admin: 08/13/18 21:37 Dose: 10 mg Tramadol HCl (Ultram) 50 mg PO BID PRN PRN Reason: Pain, moderate (4-7) Last Admin: 08/14/18 03:19 Dose: 50 mg - Labs Labs: 08/12/18 08:02 08/12/18 08:02 PT 10.9 SECONDS (9.7-12.2) 07/30/18 19:45 INR 1.0 07/30/18 19:45 APTT 27 SECONDS (21-34) 07/30/18 19:45 - Constitutional Appears: No Acute Distress - Head Exam Head Exam: NORMAL INSPECTION - Eye Exam Eye Exam: EOMI, PERRL - ENT Exam ENT Exam: Normal Oropharynx - Neck Exam Neck Exam: Normal Inspection - Respiratory Exam Respiratory Exam: Clear to Ausculation Bilateral, NORMAL BREATHING PATTERN - Cardiovascular Exam Cardiovascular Exam: REGULAR RHYTHM, +S1, +S2 - GI/Abdominal Exam GI & Abdominal Exam: Soft, Normal Bowel Sounds - Extremities Exam Extremities Exam: Normal Capillary Refill. absent: Calf Tenderness, Pedal Edema - Neurological Exam Neurological Exam: Alert, Awake, CN II-XII Intact, Oriented x3, Reflexes Normal - Psychiatric Exam Psychiatric exam: Normal Mood - Skin Skin Exam: Normal Color, Warm Assessment and Plan (1) Herpes zoster Status: Acute (2) Chest pain, atypical Status: Acute (3) CAD (coronary artery disease) Status: Acute (4) Diabetes mellitus Status: Acute - Assessment and Plan (Free Text) Plan: CONTINUE IV ACYCLOVIR 500MG IVPB Q8HRLY 08/09/18 ON IV CEFOTRIAXONE 1GM IVPB [id number]/09/18. patient on PO steroids / analgesics as per PMD. BLOOD SUGAR CONTROL. CONTACT PRECAUTIONS.
[2018-08-15] MEDS: Acyclovir 500 MG in Sodium Chloride 0.9% 100 ML IV SCH ×2 (01:07→09:27)
[2018-08-15] MEDS: Albuterol-Ipratrop 3 mg / 0.5 (3 ml) UD INH SCH ×3 (01:15→13:45)
[2018-08-15] MEDS: (Novolin R) Insulin Human Regular 100 units/ml vial SC SCH ×2 (08:30→12:30)
[2018-08-15] MEDS: (Novolog) Insulin Aspart, Recombinant 100 u/ml 10 ml vial SC SCH ×2 (08:34→12:46)
[2018-08-15 09:25] VITALS: BP 150/85; PULSE 80
[2018-08-15] MEDS: Pantoprazole 40 mg EC Tab PO SCH (09:26)
[2018-08-15] MEDS: Ranolazine 500 mg Extended Release Tablets PO SCH (09:26)
[2018-08-15] MEDS: diltiaZEM 180 mg/24 Hours CD Cap PO SCH (09:26)
[2018-08-15] MEDS: Lidocaine 5% Patch TD SCH (09:27)
[2018-08-15 09:46] VITALS: TEMP 97.7; O2SAT 97
--- NOTE | 2018-08-15 11:53 | CP.PCM.PN ---
Subjective - Date & Time of Evaluation Date of Evaluation: 08/15/18 Time of Evaluation: 11:53 - Subjective Subjective: AFEBRILE, RASH SCABBING AND DRIED UP ON IV ACYCLOVIR/AND IV CEFOTRIAXONE. LABS REVIEWED Objective - Vital Signs/Intake and Output Vital Signs (last 24 hours): Temp Pulse Resp BP Pulse Ox 97.7 F 80 20 150/85 97 08/15/18 07:00 08/15/18 09:25 08/15/18 07:00 08/15/18 09:25 08/15/18 07:00 Intake and Output: 08/15/18 08/15/18 06:59 18:59 Intake Total 820 Balance 820 - Medications Medications: Current Medications Acetaminophen (Tylenol 325mg Tab) 650 mg PO Q6 PRN PRN Reason: Fever >100.4 F Last Admin: 08/14/18 05:17 Dose: 650 mg Albuterol/Ipratropium (Duoneb 3 Mg/0.5 Mg (3 Ml) Ud) 3 ml INH RQ6 [facility] Last Admin: 08/15/18 08:45 Dose: 3 ml Aspirin (Ecotrin) 81 mg PO DAILY [facility] Last Admin: 08/15/18 09:26 Dose: 81 mg Diltiazem HCl (Cardizem Cd) 180 mg PO DAILY [facility] Last Admin: 08/15/18 09:26 Dose: 180 mg Docusate Sodium (Colace) 100 mg PO BID [facility] Last Admin: 08/15/18 09:25 Dose: 100 mg Acyclovir 500 mg/ Sodium (Chloride) 100 mls @ 100 mls/hr IV Q8H [facility]; Protocol Last Admin: 08/15/18 09:27 Dose: 100 mls/hr Ceftriaxone Sodium 1 gm/ (Sodium Chloride) 100 mls @ 100 mls/hr IVPB Q12H [facility]; Protocol Last Admin: 08/15/18 08:30 Dose: 100 mls/hr Insulin Aspart (Novolog) 25 unit SC TIDCC [facility] Last Admin: 08/15/18 08:34 Dose: 25 units Insulin Human Regular (Novolin R) 0 unit SC ACHS [facility]; Protocol Last Admin: 08/15/18 08:30 Dose: 3 units Lactulose (Enulose) 20 gm PO HS [facility] Last Admin: 08/14/18 21:28 Dose: 20 gm Lidocaine (Lidoderm) 1 ea TD DAILY [facility] Last Admin: 08/15/18 09:27 Dose: 1 ea Losartan Potassium (Cozaar) 25 mg PO DAILY [facility] Last Admin: 08/15/18 09:25 Dose: 25 mg Metoprolol Tartrate (Lopressor) 100 mg PO DAILY [facility] Last Admin: 08/15/18 09:26 Dose: 100 mg Nitroglycerin (Nitro-Bid 2% Oint) 1 ea TOP Q6H PRN PRN Reason: chest pain Last Admin: 08/12/18 03:39 Dose: 1 ea Pantoprazole Sodium (Protonix Ec Tab) 40 mg PO DAILY [facility] Last Admin: 08/15/18 09:26 Dose: 40 mg Prednisone (Prednisone Tab) 20 mg PO DAILY [facility] Last Admin: 08/15/18 09:26 Dose: 20 mg Pregabalin (Lyrica) 75 mg PO BID [facility] Last Admin: 08/15/18 09:26 Dose: 75 mg Promethazine HCl (Phenergan Syrup) 6.25 mg PO Q6H PRN PRN Reason: Cough Last Admin: 08/12/18 19:13 Dose: 6.25 mg Ranolazine (Ranexa) 500 mg PO BID [facility] Last Admin: 08/15/18 09:26 Dose: 500 mg Rosuvastatin Calcium (Crestor) 10 mg PO HS [facility] Last Admin: 08/14/18 21:28 Dose: 10 mg Tramadol HCl (Ultram) 50 mg PO BID PRN PRN Reason: Pain, moderate (4-7) Last Admin: 08/15/18 08:01 Dose: 50 mg - Labs Labs: 08/12/18 08:02 08/12/18 08:02 PT 10.9 SECONDS (9.7-12.2) 07/30/18 19:45 INR 1.0 07/30/18 19:45 APTT 27 SECONDS (21-34) 07/30/18 19:45 - Constitutional Appears: No Acute Distress - Head Exam Head Exam: NORMAL INSPECTION - Eye Exam Eye Exam: EOMI, PERRL - ENT Exam ENT Exam: Normal Oropharynx - Neck Exam Neck Exam: Normal Inspection - Respiratory Exam Respiratory Exam: Clear to Ausculation Bilateral, NORMAL BREATHING PATTERN - Cardiovascular Exam Cardiovascular Exam: REGULAR RHYTHM, +S1, +S2 - GI/Abdominal Exam GI & Abdominal Exam: Soft, Normal Bowel Sounds - Extremities Exam Extremities Exam: Normal Capillary Refill. absent: Calf Tenderness, Pedal Edema - Neurological Exam Neurological Exam: Alert, Awake, CN II-XII Intact, Normal Gait, Oriented x3, Reflexes Normal - Psychiatric Exam Psychiatric exam: Normal Mood - Skin Skin Exam: Normal Color, Rash (SCABBING AND DRIED OFF.), Warm Assessment and Plan (1) Herpes zoster Status: Acute (2) Chest pain, atypical Status: Acute (3) CAD (coronary artery disease) Status: Acute (4) Diabetes mellitus Status: Acute - Assessment and Plan (Free Text) Plan: DC IV ACYCLOVIR 500MG IVPB Q8HRLY 08/09/18 - 08/15/18 DC IV CEFOTRIAXONE 1GM IVPB [id number]/09/18 - 08/15/18 PO steroids TAPER PER PMD Analgesics as per PMD. PT CAN TAKE A SHOWER AT HOME. CASE DISCUSSED WITH STAFF. OK FOR DISCHARGE.
--- NOTE | 2018-09-26 21:00 | PN ---
DATE: 07/31/2018 Earlier the patient was seen by boiler tube reamer. According to the boiler tube reamer, the patient had a coronary artery bypass grafting in 2002, and subsequently, the patient needed a PCI in 2003 and 2004. The patient also has a history of chronic left bundle branch block. Recent stress test which was done in November 2017 showing evidence of no reversible ischemic changes in the apical infarct and septal infarct area and EF is on the low side of 45 to 50%. The patient is otherwise clinically doing well, but still continues to have pain. According to the boiler tube reamer, most likely nonspecific pain. We will continue to monitor. We will follow up with patient. Niki Martinez MD
--- NOTE | 2018-09-26 21:06 | PN ---
DATE: 08/07/2018 SUBJECTIVE: Seen by me at 4.30 p.m. The patient is in the isolation room, comfortable otherwise. She is sitting up in the chair, but she is still concerned about the rash and concerned about the infection and saying to other people, there is a rash with crusting noted. PHYSICAL EXAMINATION: VITAL SIGNS: Temperature 97.2, pulse 68, respirations 20, blood pressure 164/87, saturation is 95%. Clinical examination is unremarkable. MEDICATIONS: Currently receiving Tylenol, gabapentin, and methylprednisolone for the pain. Also, she is receiving Ranexa for chest discomfort. ASSESSMENT AND RECOMMENDATION: A 68-year-old female with a history of coronary artery disease, hypertension, diabetes, hypercholesterolemia, lower back pain. Admitted with acute herpes zoster with herpetic neuralgia associated with chest pain. Niki Martinez MD
--- NOTE | 2018-09-26 21:11 | PN ---
DATE: 08/01/2018 TIME OF VISIT: The patient was seen by me at 4:30 p.m. SUBJECTIVE: The patient is currently feeling comfortable, but still having pain over the left side ongoing pain, sometimes feeling increasing pain noted, but cardiology point of view was clear. PHYSICAL EXAMINATION: VITAL SIGNS: Temperature is 98.4, pulse 72, respirations 20, blood pressure is 125/72, saturation is 99%. Clinical examination is unremarkable otherwise. The patient is current taking Crestor, Protonix, Lopressor, Cozaar, insulin, Cardizem CD, aspirin, and also albuterol. We will continue to monitor. If the patient continues to have pain, we will probably repeat the labs again tomorrow. ASSESSMENT AND RECOMMENDATION: A 68-year-old female with history of diabetes, hypertension, peripheral neuropathy, lumbar disc disease, history of heart disease and multiple episodes. Currently stable with heart disease. We will follow up with the patient. Niki Martinez MD
--- NOTE | 2018-09-26 21:11 | PN ---
DATE: 08/09/2018 TIME OF VISIT: 10 p.m. SUBJECTIVE: The patient is now having right upper extremity PICC line because of the poor venous access. Currently receiving intravenous acyclovir and ceftriaxone 1 g daily. PHYSICAL EXAMINATION: VITAL SIGNS: Stable. CHEST: Good air entry. HEART: Regular heart sound noted. ABDOMEN: Nontender. ASSESSMENT AND PLAN: The patient is having increasingly erythematous, red, painful rash in the left side of the chest and the axillary area herpes zoster likely, postherpetic neuralgia. Continue current treatment. We will follow up with the patient. Niki Martinez MD
--- NOTE | 2018-09-26 21:14 | PN ---
DATE: 08/10/2018 The patient was seen by me at 4.30 a.m. The patient is clinically stable. Still continues to have pain over the left side of the chest as well as in the back. Tolerating the medications at this time. Currently on antibacterial and antiviral treatment. I recommended rehab at this time, but the patient is currently reluctant. We will continue to currently monitor. Niki Martinez MD
--- NOTE | 2018-09-26 21:16 | PN ---
DATE: 08/04/2018 TIME OF VISIT: The patient was seen by me at 10.30 p.m. The patient was earlier seen by Infectious Disease. The patient developed severe rash over the left side of the chest where she was complaining of pain. Now currently on intravenous acyclovir treatment for possible Herpes zoster and also receiving Solu-Medrol for the herpetic neuralgia. We will continue to monitor her glucose. Vital signs are otherwise stable. Discussed with the patient's family. The patient is very concerned about the infection. The patient is being isolated for contact isolation. We will follow up the patient. Niki Martinez MD
--- NOTE | 2018-09-26 21:28 | PN ---
DATE: 08/13/2018 TIME OF VISIT: At 5 p.m. SUBJECTIVE: The patient is out of bed to chair, comfortable. Complaining of pain. Seen by Infectious Disease. Rash is definitely improving, but still having some active rash. Clinical examination is otherwise unremarkable. PHYSICAL EXAMINATION: VITAL SIGNS: Stable. Blood pressure 152/85. MEDICATIONS: The patient is currently on medications including tramadol, Crestor, Ranexa, Lyrica, prednisone, Protonix, nitroglycerin, Lopressor, Cozaar, Lidoderm, lactulose, insulin, ceftriaxone, acyclovir, heparin, Colace, Cardizem, aspirin, DuoNeb and Tylenol. ASSESSMENT AND PLAN: We will continue the current treatment and we will follow up the patient. Niki Martinez MD
--- NOTE | 2018-09-26 21:34 | PN ---
DATE: 08/14/2018 SUBJECTIVE: The patient is clinically afebrile. Rash is improving. Spoke to Infectious Disease. The patient is nearly completing the treatment. Physical therapy recommended and possible discharge in the morning as per the ID. CLINICAL EXAMINATION: VITAL SIGNS: Temperature 97.3, pulse 73, respirations 20, blood pressure is 147/82, saturation is 97. MEDICATIONS: Reviewed. ASSESSMENT AND PLAN: The patient is a 68-year-old female with history of diabetes, hypertension, hypercholesterolemia, status post coronary artery bypass grafting and stenting. Admitted with uncontrolled diabetes; chest pain, acute, worsening; herpes zoster with skin infection with associated superficial cellulitis and sepsis. Continue the current treatment. We will follow up the patient. Niki Martinez MD
--- NOTE | 2018-09-27 02:54 | PN ---
DATE: 08/05/2018 SUBJECTIVE: The patient is currently on antiviral treatment. She is feeling okay, but ongoing pain noted. Complaining of increasing pain over the left side of the chest. Denies any nausea or vomiting. No other major symptoms. Poor intake noted because of the pain. PHYSICAL EXAMINATION: VITAL SIGNS: Temperature 98.1, pulse 90, blood pressure 150/85, respirations 20, saturation is 96% on room air. ASSESSMENT AND PLAN: Clinical examination is unremarkable except extensive rash involving the left infra-axillary area, anterior chest as well as in the scapular region secondary to herpes zoster, on acyclovir treatment. We will continue current treatment. Postherpetic neuralgia. We will follow up the patient. Glucose monitoring. Niki Martinez MD
--- NOTE | 2018-09-27 06:29 | HP ---
CHIEF COMPLAINT: Chest pain. HISTORY OF PRESENT ILLNESS: A 68-year-old female with a history of congestive heart failure, COPD, hypertension, hypercholesterolemia, CAD, status post CABG, came to the emergency room because of the severe pain over the left side of the chest, radiating to the back, unable to tolerate, and she came into the emergency room. The patient came to the office recently also. The patient does not have any dizziness, no associated symptoms of nausea, vomiting, headache. No fever noted. But recently, she is having increasing pain. She has generalized body pain including the lower back pain, multiple epidural injection was given in the past. Also, seeing the vein specialist. PAST MEDICAL HISTORY: The patient has history of osteoarthritis, lumbosacral disk disease, multiple epidural injection, hypertension, hypercholesterolemia, obstructive sleep apnea, CAD, status post CABG. SOCIAL HISTORY: The patient is a nonsmoker, nonalcoholic. MEDICATIONS: Reviewed. FAMILY HISTORY: Noncontributory. PAST SURGICAL HISTORY: Multiple epidural injections, coronary artery bypass grafting, cataract surgery. REVIEW OF SYSTEMS: The patient is complaining of ongoing chest discomfort over the anterior chest, sometimes radiating to the left side of the axillary area and also in the back. ALLERGIES: THE PATIENT IS ALLERGIC TO SULFA. Poor appetite. The patient is having difficult time in eating. PHYSICAL EXAMINATION: VITAL SIGNS: Otherwise stable. Mild elevation of the systolic blood pressure is not recommended. CHEST: Good air entry. HEART: Regular heart sound noted. ABDOMEN: Nontender. EXTREMITIES: No pedal edema. LABORATORY DATA: Reviewed. The patient is having no evidence of any enzyme elevation of the coronaries. The patient was admitted with a diagnosis of non-ST elevation, nonspecific chest pain. EKG changes negative. Cardiology evaluation was called in. We will continue to monitor. ASSESSMENT AND RECOMMENDATION: A 68-year-old female with a history of heart failure, chronic obstructive pulmonary disease, hypertension, hypercholesterolemia, coronary artery disease, and coronary artery bypass grafting, admitted with a left-sided chest pain. We will closely monitor telemetrywise, and we will follow up the patient. Niki Martinez MD
--- NOTE | 2018-09-27 06:32 | PN ---
DATE: 08/11/2018 TIME OF VISIT: 3 p.m. SUBJECTIVE: The patient is earlier seen by Infectious Disease, and I spoke to the infectious disease specialist. Currently, the patient has a PICC line in right arm, receiving the antibiotics. Currently on acyclovir and ceftriaxone. The rash is improving. Also, she is receiving gabapentin, steroid, and pain medications. Some improvement, able to go to the bathroom. Some constipation present. Otherwise, she is doing well. PHYSICAL EXAMINATION:. VITAL SIGNS: Temperature 97.8, pulse 83, respirations 20, blood pressure is 116/70, saturation is 100%. Clinical examination is otherwise unremarkable. The rash is improving. We will continue the current treatment. ASSESSMENT AND PLAN: The patient is a 68-year-old female with a history of coronary artery disease, hypertension, hypercholesterolemia, diabetes, coronary artery bypass grafting. Admitted with severe herpetic neuralgia, herpes, and associated with chest pain. Niki Martinez MD
--- NOTE | 2018-09-27 07:04 | DS ---
HISTORY: This is a 68-year-old female with history of congestive heart failure, COPD, hypertension, hypercholesteremia, CAD, status post CABG, history of stent following that admitted to the hospital with left-sided chest pain. PAST MEDICAL HISTORY: The patient has a past medical history of osteoarthritis, disc disease, epidural injection, hypertension, high cholesterol, coronary artery bypass grafting, CAD and obstructive sleep apnea. ALLERGIES: ALLERGIC TO SULFA. SOCIAL HISTORY: Non-alcoholic, non-smoker. MEDICATIONS: On multiple medications. Reviewed. REVIEW OF SYSTEMS: Review of chart noted. PHYSICAL EXAMINATION: Upon admission, the patient was having ongoing chest discomfort over the left side. No visible lesion noted. The patient was admitted to the hospital with acute chest pain. Myocardial ischemia has to be ruled out. Cardiology evaluation was called in. COURSE IN THE HOSPITAL: Upon admission, the patient was seen by wet plant operator. According to the wet plant operator, the patient had a stress test done in 11/2017 which was negative. The patient also has heart disease, CABG, and stent following the CABG. Clinically otherwise stable. As per the Cardiology, ejection fraction is 43%, but after two days, the patient developed a significant rash involving the left side of the breast area as well as the axillary and left infrascapular area. Severely worsening rash noted, associated with pain and itching. The patient was started on intravenous acyclovir and also prophylactic antibiotic, isolated, seen by Infectious Disease, PICC line was done. Continue the medications. The patient has markedly improved after at least 10 days of IV antibiotic and antiviral treatment, improved markedly, clinically stable. She will be discharged home. FINAL DIAGNOSES: Acute herpes zoster infection with severe uncontrolled diabetes, neuralgia, hepatic neuropathy, diabetes, hypertension, coronary artery disease, and chest pain. Niki Martinez MD
== END 2018-08-15 16:39 | disposition home or self-care (01) | DRG 595 ==
LOC: C.ER 19:17 → C.9E 21:09 → C.5S 22:04 → OBSVTOIN 08-02 19:34 → C.5S 08-03 20:26
PROVIDERS: ADMIT Internal Medicine; ATTEND Internal Medicine
PROC: 05H533Z Insertion of Infusion Device into Right Subclavian Vein, Percutaneous Approach (ICD-10-PCS; principal; 2018-08-09)
PROC: B546ZZA Ultrasonography of Right Subclavian Vein, Guidance (ICD-10-PCS; 2018-08-09)
DX: B02.9 Zoster without complications (principal); J18.9 Pneumonia, unspecified organism; J98.11 Atelectasis; J44.0 Chronic obstructive pulmonary disease with (acute) lower respiratory infection; T88.1XXA Other complications following immunization, not elsewhere classified, initial encounter; R07.89 Other chest pain; E78.5 Hyperlipidemia, unspecified; E11.65 Type 2 diabetes mellitus with hyperglycemia; I25.10 Atherosclerotic heart disease of native coronary artery without angina pectoris; I44.7 Left bundle-branch block, unspecified; I50.9 Heart failure, unspecified; I11.0 Hypertensive heart disease with heart failure; G47.33 Obstructive sleep apnea (adult) (pediatric); Z95.1 Presence of aortocoronary bypass graft; M19.90 Unspecified osteoarthritis, unspecified site; M79.2 Neuralgia and neuritis, unspecified; T50.B15A Adverse effect of smallpox vaccines, initial encounter; I34.0 Nonrheumatic mitral (valve) insufficiency; I27.20 Pulmonary hypertension, unspecified

== ENCOUNTER 2018-09-16 13:22 | Inpatient (IN) | payer MEDICARE, MEDICAID ==
[2018-09-16 13:22] VITALS: BMI 42.4
[2018-09-16 14:14] LABS: BASO % 0.3 % (0.0-2.0); EOS # 0.1 K/uL (0.0-0.7); EOS % 2.2 % (0.0-4.0); HEMOGLOBIN 10.1 g/dL (11.0-16.0); LYMPH # 1.4 K/uL (1.0-4.3); LYMPH % 26.8 % (20.0-40.0); MEAN CELL VOLUME 77.8 fL (81.0-99.0); MEAN CORPUSCULAR HEMOGLOBIN 24.7 pg (27.0-31.0); MEAN CORPUSCULAR HGB CONC 31.8 g/dL (33.0-37.0); MEAN PLATELET VOLUME 8.9 fL (7.2-11.7); MONO # 0.5 K/uL (0.0-0.8); MONO % 9.3 % (0.0-10.0); NEUT # 3.2 K/uL (1.8-7.0); NEUT % 61.4 % (50.0-75.0); RBC 4.1 Mil/uL (3.80-5.20); RED CELL DISTRIBUTION WIDTH 16.3 % (11.5-14.5); WHITE BLOOD COUNT 5.2 K/uL (4.8-10.8)
[2018-09-16 14:28] LABS: INR 1.1; PROTHROMBIN TIME 11.5 SECONDS (9.7-12.2)
--- NOTE | 2018-09-16 14:32 | C.PDOC ---
History Of Present Illness 68 years old female brought to ED from home by ambulance for complaints of shortness of breath and chest pressure. Patient was admitted 07/30/18-08/15/18 for cardiac workup. Patient reports chest pain related to shingles. Patient also reports skin lesions are no longer bothering her. Patient states she is compliant with her medications at home and took her medications this morning. Denies any other complaints. Patient had a normal cardiac echo 07/30/18. incidentally, EMS accidentally tipped the gurney over to R side while leaving her building, Tour Commander of EMS @ bedside, no new injuries noted. Time Seen by Provider: 09/16/18 13:39 Chief Complaint (Nursing): Chest Pain History Per: Patient History/Exam Limitations: no limitations Onset/Duration Of Symptoms: Hrs Current Symptoms Are (Timing): Still Present Modifying Factors: None Exacerbating Factors: None Alleviating Factors: None Recent travel outside of the [place]: No Past Medical History Reviewed: Historical Data, Nursing Documentation, Vital Signs Vital Signs: Last Vital Signs Temp 98.3 F 09/16/18 13:29 Pulse 82 09/16/18 13:29 Resp 26 H 09/16/18 13:29 BP 162/59 H 09/16/18 13:29 Pulse Ox 100 09/16/18 13:29 - Medical History PMH: Arthritis, CHF, COPD, HTN, Hypercholesterolemia, Sleep Apnea Denies: Chronic Kidney Disease Surgical History: CABG, Endoscopy Denies: Pacemaker - [facility] INSERTION OF INFUSION DEV INTO R SUBCLAV VEIN, PERC APPROACH (08/02/18) TONSILLECTOMY (01/14/98) ULTRASONOGRAPHY OF RIGHT SUBCLAVIAN VEIN, GUIDANCE (08/02/18) Family History: States: Unknown Family Hx - Social History Hx Tobacco Use: No Hx Alcohol Use: No Hx Substance Use: No - Immunization History Hx Tetanus Toxoid Vaccination: No Hx Influenza Vaccination: No Hx Pneumococcal Vaccination: No Review Of Systems Except As Marked, All Systems Reviewed And Found Negative. Constitutional: Negative for: Fever, Chills Cardiovascular: Positive for: Other (Chest pressure ) Respiratory: Positive for: Shortness of Breath Gastrointestinal: Negative for: Nausea, Vomiting, Abdominal Pain, Diarrhea Skin: Negative for: Rash Neurological: Negative for: Weakness, Numbness Physical Exam - Physical Exam Appears: Non-toxic, No Acute Distress, Other (Obese middle eas[place] female. Anxious ) Skin: Rash (Healing zoster rash in left chest T2 and T3 area ) Head: Atraumatic, Normacephalic Eye(s): bilateral: Normal Inspection, PERRL, EOMI Oral Mucosa: Moist Neck: Normal ROM, Supple Chest: Symmetrical, No Tenderness Cardiovascular: Rhythm Regular, No Murmur Respiratory: Normal Breath Sounds, No Rales, No Rhonchi, No Wheezing Gastrointestinal/Abdominal: Bowel Sounds (Active ), Soft, No Tenderness, No Guarding, No Rebound, Other (Obese ) Extremity: Normal ROM, Other (4x4 Pitting Edema ) Extremity: Bilateral: Atraumatic, Normal Color And Temperature, Normal ROM Neurological/Psych: Oriented x3, Normal Speech Gait: Steady ED Course And Treatment - Laboratory Results Result Diagrams: 09/16/18 14:11 09/16/18 14:11 Lab Results: PT 11.5 SECONDS (9.7-12.2) 09/16/18 14:11 INR 1.1 09/16/18 14:11 APTT 32 SECONDS (21-34) 09/16/18 14:11 D-Dimer, Quantitative 356 ng/mlDDU (0-243) H 09/16/18 14:11 Lab Interpretation: Normal ECG: Interpreted By Me ECG Rhythm: Sinus Rhythm ECG Interpretation: Normal Rate From EC O2 Sat by Pulse Oximetry: 100 (RA) Pulse Ox Interpretation: Normal - Radiology CXR: Interpreted by Me CXR Interpretation: Yes: No Acute Disease, Other (+ mild CHF) - Other Rad CXR X-Ray: Viewed By Me, Read By Radiologist Interpretation: IMPRESSION: Small bibasilar atelectasis. Reevaluation Time: 15:50 Reassessment Condition: Improved (calm, cooperative) - Physician Consult Information Outcome Of Conversation: 1400, 1600: d/w Dr. Brandon- PMD- ok to Tele Obs Medical Decision Making Medical Decision Making: Plan: * Lasix * EKG * Blood work * CXR EKG: Normal sinus rhythm at 63 bpm LBBB thats old polypharmacy no acute sob/weakness normal card echo 07/28 L chest recent HSV no pain now NO post-herpetic neuralgia consider defer Lyrica/pain meds for adding anxiety/side-effects. stable lower leg edema suspect lymphedema due to obesity mild elev d-dimer still LOW susp of DVT/PE psych/anxiety too anxious to be home alone caring for herself consider [facility] placement for Uzbek speaking polypharmacy cut quant of meds as able Disposition Doctor Will See Patient In The: Office Counseled Patient/Family Regarding: Studies Performed, Diagnosis - Disposition Disposition: HOSPITALIZED Disposition Time: 15:53 Condition: GOOD Forms: [facility] (Croatian) - Clinical Impression Clinical Impression: Chest discomfort, Anxiety - Scribe Statement The provider has reviewed the documentation as recorded by the Scribdani Leal All medical record entries made by the Carmenibdani were at my direction and personally dictated by me. I have reviewed the chart and agree that the record accurately reflects my personal performance of the history, physical exam, medical decision making, and the department course for this patient. I have also personally directed, reviewed, and agree with the discharge instructions and disposition.
[2018-09-16 14:34] LABS: ALB/GLOB RATIO 1.4 (1.0-2.1); ALBUMIN 4.1 g/dL (3.5-5.0); ALT/SGPT 21 U/L (9-52); AST/SGOT 34 U/L (14-36); BLOOD UREA NITROGEN 18 mg/dL (7-17); CALCIUM 9.6 mg/dl (8.6-10.4); GFR NON-AFRICAN AMERICAN > 60
[2018-09-16 14:47] LABS: B-TYPE NATRIURETIC PEPTIDE 152 pg/mL (0-900)
--- NOTE | 2018-09-16 14:47 | RAD ---
Date of service: 09/16/2018 PROCEDURE: CHEST RADIOGRAPH, 1 VIEW HISTORY: SOB COMPARISON: Comparison is made with 08/06/2018 FINDINGS: LUNGS: Bibasilar small opacities noted likely atelectasis. Otherwise no significant interval changes PLEURA: No pneumothorax or pleural fluid seen. CARDIOVASCULAR: No aortic atherosclerotic calcification present. Normal. OSSEOUS STRUCTURES: No significant abnormalities. VISUALIZED UPPER ABDOMEN: Normal. OTHER FINDINGS: Postsurgical changes suggestive of prior cardiac surgery. IMPRESSION: Small bibasilar atelectasis.
[2018-09-16] MEDS: Albuterol-Ipratrop 3 mg / 0.5 (3 ml) UD INH SCH (20:57)
[2018-09-16] MEDS: (Lantus) Insulin Glargine, Recombinant SC SCH (21:07)
[2018-09-16] MEDS: Tramadol 25 mg PO PRN (21:08)
[2018-09-16] MEDS: (Novolin R) Insulin Human Regular 100 units/ml vial SC SCH (21:10)
[2018-09-17] MEDS: Albuterol-Ipratrop 3 mg / 0.5 (3 ml) UD INH SCH ×4 (01:29→22:48)
[2018-09-17] MEDS ORDERED: Tramadol 25 mg PO ONE (03:05)
--- NOTE | 2018-09-17 08:26 | CP.PCM.HP ---
History of Present Illness - History of Present Illness History of Present Illness: Chief complaint: Chest pain HPI: 68-year-old female with a history of congestive heart failure, COPD, hypertension, hypercholesterolemia, CAD, status post CABG, she was recently hospitalized less than a month ago with left-sided chest pain, developed severe herpes zoster, treated intravenously with the antiviral treatment. Patient was sent home following that, but since then she was complaining of increasing pain over the left side of the chest, radiating to the left axillary, as well as in the back. Patient was not able to tolerate the pain, she was seen by pain specialist in [place], and a topical medication and also oral pain medications, including tramadol, Lyrica, but in spite of that there was no improvement in the pain, she was having increasingly worsening symptoms, she called the ambulance and she was brought to the emergency room. On her way to the hospital, patient had an episode of fall from the stretcher, and she fell on her back, and is now she is having more pain in the lower back. But the patient is able to stand up, she is able to walk to the bed and also to the bathroom without any problem, now the current main problem is the ongoing pain over the left side of the chest and radiating to the left upper extremity. Patient is also feeling somewhat nauseated. No headache. Denies any other major systemic symptoms Past medical history: Patient has osteoarthritis, lumbosacral disc disease, history of epidural injections multiple times in the past, hypertension, hypercholesterolemia, obstructive sleep apnea, CAD, status post CABG. Patient is allergic to sulfa. Nonalcoholic non-smoker Medications reviewed Family history noncontributory Review of system noted from the chart. Complaining of ongoing pain in the back especially in the lower back as well as left side of the chest. Poor appetite. Pain medicine is not helping her much. Complaining of some constipation. Bilateral leg swelling also noted. On examination: Vital signs otherwise stable, but elevated with systolic blood pressure slightly noted. Good air entry Regular heart sounds noted Nontender abdomen. Edema bilaterally 2+ noted Patient's labs reviewed CMP, CBC nonspecific. Elevated d-dimer level noted urinalysis none done today patient had x-ray of the chest negative. Assessment and recommendation: Patient is a 68-year-old female with a history of CAD, hypertension, hypercholesterolemia, diabetes, chronic lower back pain, admitted now with possibly intractable pain secondary to postherpetic neuralgia.fall She also had a fall, and may be aggravating more pain now. I educated the patient regarding the ongoing pain and pain control. Lyrica, tramadol, and also morphine as needed is being given. Explained to her about the pain control. Cardiology, neurology evaluation recommended. DVT study and will follow the patient Present on Admission - Present on Admission Any Indicators Present on Admission: No History of DVT/PE: No History of Uncontrolled Diabetes: No Urinary Catheter: No Decubitus Ulcer Present: No Past Patient History - Past Medical History & Family History Past Medical History?: Yes - Past Social History Smoking Status: Never Smoked - CARDIAC Hx Cardiac Disorders: Yes Hx Congestive Heart Failure: Yes Hx Hypercholesterolemia: Yes Hx Hypertension: Yes Hx Pacemaker: No - PULMONARY Hx Respiratory Disorders: Yes Hx Chronic Obstructive Pulmonary Disease (COPD): Yes Hx Sleep Apnea: Yes - NEUROLOGICAL Hx Neurological Disorder: No - HEENT Hx HEENT Problems: No - RENAL Hx Chronic Kidney Disease: No - ENDOCRINE/METABOLIC Hx Endocrine Disorders: Yes Hx Diabetes Mellitus Type 2: Yes Other/Comment: "PITUITARY ISSUES" - HEMATOLOGICAL/ONCOLOGICAL Hx Blood Disorders: No Hx Blood Transfusions: No Hx Blood Transfusion Reaction: No - INTEGUMENTARY Hx Dermatological Problems: No - MUSCULOSKELETAL/RHEUMATOLOGICAL Hx Musculoskeletal Disorders: No Hx Falls: No - GASTROINTESTINAL Hx Gastrointestinal Disorders: Yes Hx Bowel Surgery: No Other/Comment: Gastric sleeve - GENITOURINARY/GYNECOLOGICAL Hx Genitourinary Disorders: Yes Hx Incontinence: Yes - PSYCHIATRIC Hx Psychophysiologic Disorder: No Hx Substance Use: No - SURGICAL HISTORY Hx Surgeries: Yes Hx Coronary Artery Bypass Graft: Yes - ANESTHESIA Hx Anesthesia: Yes Hx Anesthesia Reactions: Yes (ITCHiness) Hx Malignant Hyperthermia: No Has any member of the family had a problem w/ anesthesia?: No Meds Allergies/Adverse Reactions: Allergies Allergy/AdvReac Type Severity Reaction Status Date / Time Sulfa (Sulfonamide Allergy Intermediate RASH Verified 09/16/18 13:31 Antibiotics) Results - Vital Signs Recent Vital Signs: Last Vital Signs Temp 97.7 F 09/17/18 07:00 Pulse 68 09/17/18 07:28 Resp 20 09/17/18 07:00 BP 160/83 H 09/17/18 07:00 Pulse Ox 97 09/17/18 07:47 - Labs Result Diagrams: 09/16/18 14:11 09/16/18 14:11 Labs: Laboratory Results - last 24 hr 09/16/18 09/16/18 09/16/18 14:11 14:11 14:11 WBC 5.2 RBC 4.10 Hgb 10.1 L Hct 31.9 L MCV 77.8 L MCH 24.7 L MCHC 31.8 L RDW 16.3 H Plt Count 317 MPV 8.9 Neut % (Auto) 61.4 Lymph % (Auto) 26.8 Page % (Auto) 9.3 Eos % (Auto) 2.2 Baso % (Auto) 0.3 Neut # (Auto) 3.2 Lymph # (Auto) 1.4 Page # (Auto) 0.5 Eos # (Auto) 0.1 Baso # (Auto) 0.0 PT 11.5 INR 1.1 APTT 32 D-Dimer, Quantitative 356 H Sodium 136 Potassium 3.9 Chloride 99 Carbon Dioxide 28 Anion Gap 12 BUN 18 H Creatinine 0.8 Est GFR ( Amer) > 60 Est GFR (Non-Af Amer) > 60 POC Glucose (mg/dL) Random Glucose 241 H Calcium 9.6 Total Bilirubin 0.8 AST 34 ALT 21 Alkaline Phosphatase 117 Troponin I < 0.0120 NT-Pro-B Natriuret Pep 152 Total Protein 7.1 Albumin 4.1 Globulin 2.9 Albumin/Globulin Ratio 1.4 09/16/18 17:25 WBC RBC Hgb Hct MCV MCH MCHC RDW Plt Count MPV Neut % (Auto) Lymph % (Auto) [place] % (Auto) Eos % (Auto) Baso % (Auto) Neut # (Auto) Lymph # (Auto) [place] # (Auto) Eos # (Auto) Baso # (Auto) PT INR APTT D-Dimer, Quantitative Sodium Potassium Chloride Carbon Dioxide Anion Gap BUN Creatinine Est GFR ( Amer) Est GFR (Non-Af Amer) POC Glucose (mg/dL) 246 H Random Glucose Calcium Total Bilirubin AST ALT Alkaline Phosphatase Troponin I NT-Pro-B Natriuret Pep Total Protein Albumin Globulin Albumin/Globulin Ratio
[2018-09-17] MEDS: (Novolin R) Insulin Human Regular 100 units/ml vial SC SCH ×4 (08:30→22:07)
[2018-09-17] MEDS: Pantoprazole 40 mg EC Tab PO SCH (10:20)
[2018-09-17] MEDS: diltiaZEM 180 mg/24 Hours CD Cap PO SCH (10:20)
[2018-09-17] MEDS: Enoxaparin 40 mg Syringe SC SCH (10:20)
[2018-09-17] MEDS: Lidocaine 5% Patch TD SCH (10:21)
[2018-09-17 12:27] LABS: CK-MB 0.94 ng/mL (0.0-3.38)
--- NOTE | 2018-09-17 12:29 | CARD ---
APPROVED REPORT Date of service: 09/17/2018 EKG Measurement Heart [id number] <Conclusion> Sinus rhythm with 1st degree AV block Left axis deviation LBBB Abnormal ECG
--- NOTE | 2018-09-17 12:30 | CARD ---
APPROVED REPORT Date of service: 09/16/2018 EKG Measurement Heart [id number] <Conclusion> Normal sinus rhythm Left axis deviation Nonspecific intraventricular block Lateral infarct, age undetermined Inferior infarct, age undetermined Abnormal ECG
--- NOTE | 2018-09-17 12:50 | CP.PCM.CON ---
History of Present Illness - History of Present Illness History of Present Illness: Presents with generalized weakness and chest wall tenderness Known CAD: CABG 2002 and subsequent PCI around 2004 stress test 11/2017 with apical and septal infarct no reversible ischemia. Chronic LBBB on EKG HTN chronic labile DM chronic labile LIPIDS on Statin therapy Review of Systems - Review of Systems All systems: reviewed and no additional remarkable complaints except Past Patient History - Past Medical History & Family History Past Medical History?: Yes - Past Social History Smoking Status: Never Smoked - CARDIAC Hx Cardiac Disorders: Yes Hx Congestive Heart Failure: Yes Hx Hypercholesterolemia: Yes Hx Hypertension: Yes Hx Pacemaker: No - PULMONARY Hx Respiratory Disorders: Yes Hx Chronic Obstructive Pulmonary Disease (COPD): Yes Hx Sleep Apnea: Yes - NEUROLOGICAL Hx Neurological Disorder: No - HEENT Hx HEENT Problems: No - RENAL Hx Chronic Kidney Disease: No - ENDOCRINE/METABOLIC Hx Endocrine Disorders: Yes Hx Diabetes Mellitus Type 2: Yes Other/Comment: "PITUITARY ISSUES" - HEMATOLOGICAL/ONCOLOGICAL Hx Blood Disorders: No Hx Blood Transfusions: No Hx Blood Transfusion Reaction: No - INTEGUMENTARY Hx Dermatological Problems: No - MUSCULOSKELETAL/RHEUMATOLOGICAL Hx Musculoskeletal Disorders: No Hx Falls: No - GASTROINTESTINAL Hx Gastrointestinal Disorders: Yes Hx Bowel Surgery: No Other/Comment: Gastric sleeve - GENITOURINARY/GYNECOLOGICAL Hx Genitourinary Disorders: Yes Hx Incontinence: Yes - PSYCHIATRIC Hx Psychophysiologic Disorder: No Hx Substance Use: No - SURGICAL HISTORY Hx Surgeries: Yes Hx Coronary Artery Bypass Graft: Yes - ANESTHESIA Hx Anesthesia: Yes Hx Anesthesia Reactions: Yes (ITCHiness) Hx Malignant Hyperthermia: No Has any member of the family had a problem w/ anesthesia?: No Meds Allergies/Adverse Reactions: Allergies Allergy/AdvReac Type Severity Reaction Status Date / Time Sulfa (Sulfonamide Allergy Intermediate RASH Verified 09/16/18 13:31 Antibiotics) - Medications Medications: Current Medications Albuterol/Ipratropium (Duoneb 3 Mg/0.5 Mg (3 Ml) Ud) 3 ml INH RQ6 [facility] Last Admin: 09/17/18 01:29 Dose: Not Given Alprazolam (Xanax) 0.25 mg PO Q12 PRN PRN Reason: Anxiety Stop: 09/23/18 22:01 Last Admin: 09/16/18 21:07 Dose: 0.25 mg Aspirin (Ecotrin) 81 mg PO DAILY [facility] Last Admin: 09/17/18 10:20 Dose: 81 mg Diltiazem HCl (Cardizem Cd) 180 mg PO DAILY [facility] Last Admin: 09/17/18 10:20 Dose: 180 mg Docusate Sodium (Colace) 100 mg PO TID [facility] Last Admin: 09/17/18 10:20 Dose: 100 mg Enoxaparin Sodium (Lovenox) 40 mg SC DAILY [facility] Last Admin: 09/17/18 10:20 Dose: 40 mg Insulin Glargine (Lantus) 20 unit SC HS [facility] Last Admin: 09/16/18 21:07 Dose: 20 unit Insulin Human Regular (Novolin R) 0 unit SC ACHS [facility]; Protocol Last Admin: 09/17/18 12:08 Dose: 1 unit Lidocaine (Lidoderm) 1 ea TD DAILY [facility] Last Admin: 09/17/18 10:21 Dose: 1 ea Losartan Potassium (Cozaar) 50 mg PO DAILY [facility] Last Admin: 09/17/18 10:20 Dose: 50 mg Metoprolol Tartrate (Lopressor) 50 mg PO Q12 [facility] Last Admin: 09/17/18 10:20 Dose: 50 mg Pantoprazole Sodium (Protonix Ec Tab) 40 mg PO DAILY [facility] Last Admin: 09/17/18 10:20 Dose: 40 mg Pneumococcal Polyvalent Vaccine (Pneumovax 23 Vaccine) 0.5 ml IM .ONCE ONE Stop: 09/18/18 10:01 Pregabalin (Lyrica) 75 mg PO BID [facility] Last Admin: 09/17/18 10:20 Dose: 75 mg Rosuvastatin Calcium (Crestor) 10 mg PO QPM [facility] Tramadol HCl (Ultram) 25 mg PO Q8 PRN PRN Reason: Pain, moderate (4-7) Last Admin: 09/16/18 21:08 Dose: 25 mg Triamcinolone Acetonide (Kenalog 0.1% Cream) 1 appl TOP BID [facility] Last Admin: 09/17/18 10:20 Dose: 1 appl Physical Exam - Constitutional Appears: Non-toxic, No Acute Distress - Eye Exam Eye Exam: EOMI. absent: Scleral icterus - ENT Exam ENT Exam: Mucous Membranes Moist, Normal Oropharynx - Neck Exam Neck exam: Positive for: Normal Inspection - Respiratory Exam Respiratory Exam: Clear to Auscultation Bilateral, NORMAL BREATHING PATTERN - Cardiovascular Exam Cardiovascular Exam: REGULAR RHYTHM, +S1, +S2 - GI/Abdominal Exam GI & Abdominal Exam: Soft. absent: Tenderness - Extremities Exam Extremities exam: Positive for: pedal edema. Negative for: calf tenderness - Neurological Exam Neurological exam: Alert, Oriented x3 - Psychiatric Exam Psychiatric exam: Normal Affect, Normal Mood - Skin Skin Exam: Normal Color, Warm Results - Vital Signs Recent Vital Signs: Last Vital Signs Temp 97.7 F 09/17/18 07:00 Pulse 70 09/17/18 11:06 Resp 20 09/17/18 07:00 BP 149/83 09/17/18 08:46 Pulse Ox 97 09/17/18 11:49 - Labs Result Diagrams: 09/16/18 14:11 09/16/18 14:11 Labs: Laboratory Results - last 24 hr 09/16/18 09/16/18 09/16/18 14:11 14:11 14:11 WBC 5.2 RBC 4.10 Hgb 10.1 L Hct 31.9 L MCV 77.8 L MCH 24.7 L MCHC 31.8 L RDW 16.3 H Plt Count 317 MPV 8.9 Neut % (Auto) 61.4 Lymph % (Auto) 26.8 [place] % (Auto) 9.3 Eos % (Auto) 2.2 Baso % (Auto) 0.3 Neut # (Auto) 3.2 Lymph # (Auto) 1.4 [place] # (Auto) 0.5 Eos # (Auto) 0.1 Baso # (Auto) 0.0 PT 11.5 INR 1.1 APTT 32 D-Dimer, Quantitative 356 H Sodium 136 Potassium 3.9 Chloride 99 Carbon Dioxide 28 Anion Gap 12 BUN 18 H Creatinine 0.8 Est GFR ( Amer) > 60 Est GFR (Non-Af Amer) > 60 POC Glucose (mg/dL) Random Glucose 241 H Calcium 9.6 Total Bilirubin 0.8 AST 34 ALT 21 Alkaline Phosphatase 117 Total Creatine Kinase CK-MB (Mass) Troponin I < 0.0120 NT-Pro-B Natriuret Pep 152 Total Protein 7.1 Albumin 4.1 Globulin 2.9 Albumin/Globulin Ratio 1.4 09/16/18 09/17/18 09/17/18 17:25 11:05 11:51 WBC RBC Hgb Hct MCV MCH MCHC RDW Plt Count MPV Neut % (Auto) Lymph % (Auto) [place] % (Auto) Eos % (Auto) Baso % (Auto) Neut # (Auto) Lymph # (Auto) [place] # (Auto) Eos # (Auto) Baso # (Auto) PT INR APTT D-Dimer, Quantitative Sodium Potassium Chloride Carbon Dioxide Anion Gap BUN Creatinine Est GFR ( Amer) Est GFR (Non-Af Amer) POC Glucose (mg/dL) 246 H 186 H Random Glucose Calcium Total Bilirubin AST ALT Alkaline Phosphatase Total Creatine Kinase 45 CK-MB (Mass) 0.94 Troponin I < 0.0120 NT-Pro-B Natriuret Pep Total Protein Albumin Globulin Albumin/Globulin Ratio - EKG Data EKG Interpreted by: Myself - Imaging and Cardiology Chest x-ray Status: Image reviewed by me Assessment & Plan - Assessment and Plan (Free Text) Assessment: CP - atypical non cardiac - Mi ruled out - known normal stress test - chronic LBBB on EKG - Known normal LVEF - LE doppler neg for DVT Patient had recent VZV infection L. chest wasll: ? neuropathic sxs Cont ASA, statin, metoprolol BP is mild: cont cardizem, losartan LE edema is chronic: mild this admission: she is on bumetanide 2mg BID as outpatient resume or add equivalent lasix - nt-BNP is not in range for ADHF. - Date & Time Date: 09/17/18 Time: 15:05
--- NOTE | 2018-09-17 13:19 | VASCLAB ---
Date of service: 09/17/2018 PROCEDURE: Lower Extremity Venous Duplex Exam. HISTORY: DVT PRIORS: None. TECHNIQUE: Bilateral common femoral, femoral, popliteal and posterior tibial, peroneal and great saphenous veins were evaluated. Flow was assessed with color Doppler, compressibility, assessment of phasic flow and augmentation response. Report prepared by BLESSING Salgado, RVT FINDINGS: RIGHT: 1. Common Femoral Vein: 1.1. Compressibility - Fully compressible: Thrombus - None : Flow - Phasic: Augmentation -Normal: Reflux - None. 2. Femoral Vein: 2.1. Compressibility - Fully compressible: Thrombus - None : Flow - Phasic: Augmentation -Normal: Reflux - None. 3. Popliteal Vein: 3.1. Compressibility - Fully compressible: Thrombus - None : Flow - Phasic: Augmentation -Normal: Reflux - None. 4. Posterior Tibial Vein: 4.1. Compressibility - Fully compressible: Thrombus - None: Flow - Phasic: Augmentation -Normal: Reflux - None. 5. Peroneal Vein: 5.1. Compressibility - Fully compressible: Thrombus - None: Flow - Phasic: Augmentation -Normal: Reflux - None. 6. Great Saphenous Vein: 6.1. Compressibility - Fully compressible: Thrombus - None: Flow - Phasic: Augmentation - Normal: Reflux - None. LEFT: 1. Common Femoral Vein: 1.1. Compressibility - Fully compressible: Thrombus - None: Flow - Phasic: Augmentation -Normal: Reflux - None. 2. Femoral Vein: 2.1. Compressibility - Fully compressible: Thrombus - None: Flow - Phasic: Augmentation -Normal: Reflux - None. 3. Popliteal Vein: 3.1. Compressibility - Fully compressible: Thrombus - None : Flow - Phasic: Augmentation -Normal: Reflux - None. 4. Posterior Tibial Vein: 4.1. Compressibility - Fully compressible: Thrombus - None: Flow - Phasic: Augmentation -Normal: Reflux - None. 5. Peroneal Vein: 5.1. Compressibility - Fully compressible: Thrombus - None: Flow - Phasic: Augmentation -Normal: Reflux - None. 6. Great Saphenous Vein: 6.1. Compressibility - Fully compressible: Thrombus - None: Flow - Phasic: Augmentation - Normal: Reflux - None. OTHER FINDINGS: Right: None significant. Left: None significant. IMPRESSION: Right: No evidence of deep or superficial vein thrombosis of the right lower extremity. Normal valve function noted of the right side. Left: No evidence of deep or superficial vein thrombosis of the left lower extremity. Normal valve function noted of the left side.
--- NOTE | 2018-09-17 15:38 | CP.PCM.PN ---
Subjective - Date & Time of Evaluation Date of Evaluation: 09/17/18 Time of Evaluation: 15:36 - Subjective Subjective: Patient this morning was sitting up in the chart. He was moving from the bed to the chair up, at the time she was having some difficult time in standing up because of the pain over the left side of the chest, which was radiating to the back. Patient was not eating well. Complaining of constipation On examination: Vital signs are noted from the chart. Chest good air entry, regular heart sounds, nontender abdomen, pedal edema bilaterally noted. Venous Doppler was done bilaterally for the legs, negative for DVT. Patient is currently on prophylaxis DVT treatment. Patient also seen by divider operator today. I recommended neurological evaluation. Assessment and recommendation: Patient is a 68-year-old female with a history of multiple medical problems including diabetes hypertension hypercholesterolemia as well as CAD, status post CABG. Now having ongoing pain. I recommended neurological evaluation. DVT study done already. Continue the prophylactic for DVT. Pain management. Respect to the patient's son about the ongoing condition. I recommended for subacute rehab and will follow the patient Objective - Vital Signs/Intake and Output Vital Signs (last 24 hours): Temp Pulse Resp BP Pulse Ox 97.7 F 70 20 149/83 97 09/17/18 07:00 09/17/18 11:06 09/17/18 07:00 09/17/18 08:46 09/17/18 11:49 - Medications Medications: Current Medications Albuterol/Ipratropium (Duoneb 3 Mg/0.5 Mg (3 Ml) Ud) 3 ml INH RQ6 [facility] Last Admin: 09/17/18 13:09 Dose: Not Given Alprazolam (Xanax) 0.25 mg PO Q12 PRN PRN Reason: Anxiety Stop: 09/23/18 22:01 Last Admin: 09/16/18 21:07 Dose: 0.25 mg Aspirin (Ecotrin) 81 mg PO DAILY [facility] Last Admin: 09/17/18 10:20 Dose: 81 mg Baclofen (Lioresal) 10 mg PO HS [facility] Diltiazem HCl (Cardizem Cd) 180 mg PO DAILY [facility] Last Admin: 09/17/18 10:20 Dose: 180 mg Docusate Sodium (Colace) 100 mg PO TID [facility] Last Admin: 09/17/18 13:41 Dose: 100 mg Enoxaparin Sodium (Lovenox) 40 mg SC DAILY [facility] Last Admin: 09/17/18 10:20 Dose: 40 mg Insulin Glargine (Lantus) 20 unit SC HS [facility] Last Admin: 09/16/18 21:07 Dose: 20 unit Insulin Human Regular (Novolin R) 0 unit SC ACHS [facility]; Protocol Last Admin: 09/17/18 12:08 Dose: 1 unit Lidocaine (Lidoderm) 1 ea TD DAILY [facility] Last Admin: 09/17/18 10:21 Dose: 1 ea Losartan Potassium (Cozaar) 50 mg PO DAILY [facility] Last Admin: 09/17/18 10:20 Dose: 50 mg Metoprolol Tartrate (Lopressor) 50 mg PO Q12 [facility] Last Admin: 09/17/18 10:20 Dose: 50 mg Pantoprazole Sodium (Protonix Ec Tab) 40 mg PO DAILY [facility] Last Admin: 09/17/18 10:20 Dose: 40 mg Pneumococcal Polyvalent Vaccine (Pneumovax 23 Vaccine) 0.5 ml IM .ONCE ONE Stop: 09/18/18 10:01 Pregabalin (Lyrica) 75 mg PO BID [facility] Last Admin: 09/17/18 10:20 Dose: 75 mg Rosuvastatin Calcium (Crestor) 10 mg PO QPM [facility] Tramadol HCl (Ultram) 25 mg PO Q8 PRN PRN Reason: Pain, moderate (4-7) Last Admin: 09/16/18 21:08 Dose: 25 mg Triamcinolone Acetonide (Kenalog 0.1% Cream) 1 appl TOP BID [facility] Last Admin: 09/17/18 10:20 Dose: 1 appl - Labs Labs: 09/16/18 14:11 09/16/18 14:11 PT 11.5 SECONDS (9.7-12.2) 09/16/18 14:11 INR 1.1 09/16/18 14:11 APTT 32 SECONDS (21-34) 09/16/18 14:11
[2018-09-17] MEDS: Tramadol 25 mg PO PRN (17:18)
--- NOTE | 2018-09-17 17:55 | CON ---
DATE: 09/17/2018 NEUROLOGY CONSULTATION CHIEF COMPLAINT: Left mid back pain in the thoracic distribution from T5 to T10 as well as the left inner arm pain from recent shingles. HISTORY OF PRESENT ILLNESS: This is a 68-year-old woman with history of obesity, coronary artery disease, status post CABG in 2002, subsequent PCI in 2004, chronic left bundle-branch block, hypertension, type II diabetes mellitus, dyslipidemia on statin therapy, came in with generalized weakness, chest wall tenderness which translator/interpreter has been following and recommended atypical noncardiac chest pain with a normal stress test, recommended continue aspirin, statin and metoprolol. I was consulted for recent ____ left axilla well as left T5 to T10 thoracic pain, which is neurologic form in nature since her shingles and she is on Lyrica, but high dose of Lyrica makes her too sleepy, therefore recommended to keep her on the Lyrica 75 mg p.o. b.i.d. and we will add a muscle relaxant in addition to a Lidoderm patch. She is on tramadol p.r.n. for moderate pain. ALLERGIES: ALLERGIES TO SULFA MEDICATIONS. SOCIAL HISTORY: No illicit drug abuse, smoking, or ETOH abuse. REVIEW OF SYSTEMS: A 14-point review of system is negative except for the HPI. FAMILY HISTORY: Noncontributory. MEDICATIONS: Reviewed by nurse, per reconciliation sheet. LABORATORY DATA: Today's blood sugar 186, PHYSICAL EXAMINATION: VITAL SIGNS: Temperature afebrile, pulse rate of 87, blood pressure 149/80, respiratory rate of 18, and oxygen saturation 97% on nasal cannula. GENERAL: The patient seen in bed, obese , but in no acute distress. HEENT: Atraumatic, normocephalic, PERRLA. Extraocular muscles intact. NECK: Supple, no JVD, no adenopathy noted. LUNGS: Clear to auscultation. No adventitious sounds. HEART: S1, S2, normal rate and rhythm. No murmurs, rubs or gallops. ABDOMEN: Soft, nontender, and nondistended. Bowel sounds are present. EXTREMITIES: No clubbing, no cyanosis. Peripheral pulses 2+ felt bilaterally. NEUROLOGIC: The patient is alert, oriented to person, place, month, and year. Speech is fluent without any errors. Cranial nerves II through XII are intact. Motor exam: Moves all extremities equally. Toes are downgoing bilaterally. Sensory exam: Light touch, pinprick, proprioception and vibration are intact. DTRs are 2+ throughout both knees and ankles. Coordination: [id number] intact. No dysmetria noted. Gait deferred for now. Musculoskeletal: She has left thoracic tenderness representing the T5 and T10 distribution and left inner arm from recent shingles infection. IMPRESSION: Left thoracic pain secondary to residual shingles infection in addition to musculoskeletal and myofascial pain as well as has a history of underlying diabetic ___ neuropathy. PLAN: At this time, recommend continue with the Lyrica 75 mg p.o. twice daily for neuropathic relief, tramadol p.r.n. as well as to continue with the Lidoderm patch, We will add baclofen 10 mg p.o. every day for back pain.. I am recommending CAT scan of the thoracic spine without contrast. Rodolfo Keller MD
--- NOTE | 2018-09-17 18:40 | CT ---
Date of service: 09/17/2018 PROCEDURE: CT Thoracic Spine without contrast HISTORY: Midthoracic Pain. No history of recent/ related trauma provided COMPARISON: None available. TECHNIQUE: Axial computed tomography images were obtained of the thoracic spine without intravenous contrast. Coronal and sagittal reformatted images were created and reviewed. Supplemental 3D volume rendering images submitted Radiation dose: Total exam DLP = 1139.27 mGy-cm. This CT exam was performed using one or more of the following dose reduction techniques: Automated exposure control, adjustment of the mA and/or kV according to patient size, and/or use of iterative reconstruction technique. FINDINGS: VERTEBRAE: Unremarkable. No fracture. Normal alignment. DISCS/SPINAL CANAL/NEURAL FORAMINA: Within the limits of the CT technique, no disc herniation seen. No central canal or neural foraminal stenosis.. Multilevel degenerative changes primarily disc space narrowing and non marginal osteophyte formation. PARASPINAL SOFT TISSUES: Postoperative findings related to gastric sleeve procedure. Distal esophageal thickening, severe. Esophagitis should be considered. Follow-up strongly recommended.. OTHER FINDINGS: Cholelithiasis without CT evidence of acute cholecystitis. . IMPRESSION: No acute findings related to/ accounting for the clinical presentation. Severe distal esophageal thickening likely esophagitis. A component hiatal hernia may contribute to these findings. On the last follow-up recommended. Cholelithiasis without CT evidence of acute cholecystitis.
[2018-09-17] MEDS: (Lantus) Insulin Glargine, Recombinant SC SCH (22:01)
[2018-09-18] MEDS: Albuterol-Ipratrop 3 mg / 0.5 (3 ml) UD INH SCH ×4 (02:00→19:17)
[2018-09-18 07:41] VITALS: RESP 20
[2018-09-18] MEDS: (Novolin R) Insulin Human Regular 100 units/ml vial SC SCH ×4 (08:43→21:38)
[2018-09-18 09:24] LABS: BASO % 0.4 % (0.0-2.0); EOS # 0.2 K/uL (0.0-0.7); EOS % 3.1 % (0.0-4.0); HEMOGLOBIN 10.7 g/dL (11.0-16.0); LYMPH % 33.3 % (20.0-40.0); MEAN CELL VOLUME 78.1 fL (81.0-99.0); MEAN CORPUSCULAR HEMOGLOBIN 24.6 pg (27.0-31.0); MEAN CORPUSCULAR HGB CONC 31.5 g/dL (33.0-37.0); MEAN PLATELET VOLUME 9.3 fL (7.2-11.7); MONO # 0.7 K/uL (0.0-0.8); MONO % 10.9 % (0.0-10.0); NEUT # 3.2 K/uL (1.8-7.0); NEUT % 52.3 % (50.0-75.0); NRBC % 0.1 % (0.0-2.0); RBC 4.35 Mil/uL (3.80-5.20); RED CELL DISTRIBUTION WIDTH 16.5 % (11.5-14.5); WHITE BLOOD COUNT 6.1 K/uL (4.8-10.8)
[2018-09-18 09:40] LABS: ALB/GLOB RATIO 1.4 (1.0-2.1); ALBUMIN 3.8 g/dL (3.5-5.0); ALT/SGPT 20 U/L (9-52); AST/SGOT 39 U/L (14-36); BLOOD UREA NITROGEN 16 mg/dL (7-17); CALCIUM 9.3 mg/dl (8.6-10.4); GFR NON-AFRICAN AMERICAN > 60
[2018-09-18] MEDS ORDERED: Pneumococcal 23-Valent Vaccine IM ONE (10:00)
--- NOTE | 2018-09-18 10:19 | CP.PCM.PCO ---
Physician Communication Note - Physician Communication Note Physician Communication Note: ct throacic spine reveiwed. c/w pain management and KIKI.
[2018-09-18] MEDS: Enoxaparin 40 mg Syringe SC SCH (10:34)
[2018-09-18] MEDS: diltiaZEM 180 mg/24 Hours CD Cap PO SCH (10:35)
[2018-09-18] MEDS: Lidocaine 5% Patch TD SCH (10:35)
[2018-09-18] MEDS: Pantoprazole 40 mg EC Tab PO SCH (10:35)
[2018-09-18] MEDS: Tramadol 25 mg PO PRN ×2 (10:47→23:45)
[2018-09-18] MEDS ORDERED: Potassium Chloride 20 mEq ER Tab PO ONE (13:45)
--- NOTE | 2018-09-18 21:39 | CP.PCM.PN ---
Subjective - Date & Time of Evaluation Date of Evaluation: 09/18/18 Time of Evaluation: 21:38 - Subjective Subjective: Patient is morning was sleeping comfortably. She was not in any distress at the time. But later she was having some pain. Patient was seen by neurologist. CAT scan of the thoracic spine reviewed No fracture noted. Clinically stable. Still continuing to have a pain over the left side of the chest. Clinically otherwise stable Assessment and recommendation: 68-year-old female with a history of coronary artery bypass grafting, diabetes hypertension high cholesterol spinal disease. She had a fall. Worsening left herpetic neuralgia. On Lyrica. Appreciate the neurology evaluation. Patient is a candidate for subacute rehab Objective - Vital Signs/Intake and Output Vital Signs (last 24 hours): Temp Pulse Resp BP Pulse Ox 98.5 F 76 20 132/78 99 09/18/18 21:34 09/18/18 21:34 09/18/18 21:34 09/18/18 21:34 09/18/18 21:34 - Medications Medications: Current Medications Albuterol/Ipratropium (Duoneb 3 Mg/0.5 Mg (3 Ml) Ud) 3 ml INH RQ6 [facility] Last Admin: 09/18/18 19:17 Dose: Not Given Alprazolam (Xanax) 0.25 mg PO Q12 PRN PRN Reason: Anxiety Stop: 09/23/18 22:01 Last Admin: 09/16/18 21:07 Dose: 0.25 mg Aspirin (Ecotrin) 81 mg PO DAILY [facility] Last Admin: 09/18/18 10:35 Dose: 81 mg Baclofen (Lioresal) 10 mg PO HS [facility] Last Admin: 09/18/18 21:37 Dose: 10 mg Diltiazem HCl (Cardizem Cd) 180 mg PO DAILY [facility] Last Admin: 09/18/18 10:35 Dose: 180 mg Docusate Sodium (Colace) 100 mg PO TID [facility] Last Admin: 09/18/18 18:21 Dose: 100 mg Enoxaparin Sodium (Lovenox) 40 mg SC DAILY [facility] Last Admin: 09/18/18 10:34 Dose: 40 mg Insulin Glargine (Lantus) 20 unit SC [facility] Last Admin: 09/17/18 22:01 Dose: Not Given Insulin Human Regular (Novolin R) 0 unit SC [facility]; Protocol Last Admin: 09/18/18 17:09 Dose: 3 unit Lidocaine (Lidoderm) 1 ea TD DAILY [facility] Last Admin: 09/18/18 10:35 Dose: 1 ea Losartan Potassium (Cozaar) 50 mg PO DAILY [facility] Last Admin: 09/18/18 10:35 Dose: 50 mg Metoprolol Tartrate (Lopressor) 50 mg PO Q12 [facility] Last Admin: 09/18/18 21:37 Dose: 50 mg Pantoprazole Sodium (Protonix Ec Tab) 40 mg PO DAILY [facility] Last Admin: 09/18/18 10:35 Dose: 40 mg Pregabalin (Lyrica) 75 mg PO BID [facility] Last Admin: 09/18/18 18:23 Dose: 75 mg Rosuvastatin Calcium (Crestor) 10 mg PO QPM [facility] Last Admin: 09/18/18 18:22 Dose: 10 mg Tramadol HCl (Ultram) 25 mg PO Q8 PRN PRN Reason: Pain, moderate (4-7) Last Admin: 09/18/18 10:47 Dose: 25 mg Triamcinolone Acetonide (Kenalog 0.1% Cream) 1 appl TOP BID [facility] Last Admin: 09/18/18 18:22 Dose: 1 appl - Labs Labs: 09/18/18 08:43 09/18/18 08:43 PT 11.5 SECONDS (9.7-12.2) 09/16/18 14:11 INR 1.1 09/16/18 14:11 APTT 32 SECONDS (21-34) 09/16/18 14:11
[2018-09-18] MEDS: (Lantus) Insulin Glargine, Recombinant SC SCH (21:42)
[2018-09-19] MEDS: Albuterol-Ipratrop 3 mg / 0.5 (3 ml) UD INH SCH ×4 (01:24→20:02)
[2018-09-19] MEDS: (Novolin R) Insulin Human Regular 100 units/ml vial SC SCH ×4 (08:32→21:22)
[2018-09-19] MEDS: Enoxaparin 40 mg Syringe SC SCH (10:45)
[2018-09-19] MEDS: Tramadol 25 mg PO PRN ×2 (10:45→21:26)
[2018-09-19] MEDS: Pantoprazole 40 mg EC Tab PO SCH (10:45)
[2018-09-19] MEDS: Lidocaine 5% Patch TD SCH (10:46)
[2018-09-19] MEDS: diltiaZEM 180 mg/24 Hours CD Cap PO SCH (10:46)
[2018-09-19] MEDS: (Lantus) Insulin Glargine, Recombinant SC SCH (21:21)
[2018-09-20] MEDS: Albuterol-Ipratrop 3 mg / 0.5 (3 ml) UD INH SCH ×3 (01:20→13:30)
[2018-09-20] MEDS: Tramadol 25 mg PO PRN (06:28)
[2018-09-20] MEDS: (Novolin R) Insulin Human Regular 100 units/ml vial SC SCH ×4 (08:39→17:38)
[2018-09-20] MEDS: diltiaZEM 180 mg/24 Hours CD Cap PO SCH (11:34)
[2018-09-20] MEDS: Pantoprazole 40 mg EC Tab PO SCH (11:34)
[2018-09-20] MEDS: Enoxaparin 40 mg Syringe SC SCH (11:36)
[2018-09-20] MEDS: Lidocaine 5% Patch TD SCH (11:36)
--- NOTE | 2018-09-20 15:10 | CP.PCM.DIS ---
Provider - Provider Date of Admission: 09/17/18 15:38 Attending physician: Niki Martinez MD Consults: 09/17/18 08:26 Cardiology Consult Routine Comment: Consulting Provider: Frank Llamas Consulting Physician: Frank Llamas Reason for Consult: chest pain 09/17/18 14:42 Neurology Consult Routine Comment: Consulting Provider: Rodolfo Keller Consulting Physician: Rodolfo Keller Reason for Consult: back pain and fall 09/17/18 20:13 Inpatient GEOGRAPHIC INFORMATION SYSTEMS ENGINEER Core Measures Referral Routine Comment: Physician Instructions: Reason For Exam: sob and chest pain Time Spent in preparation of Discharge (in minutes): 45 Hospital Course - Lab Results Lab Results: Most Recent Lab Values WBC 6.1 K/uL (4.8-10.8) 09/18/18 08:43 RBC 4.35 Mil/uL (3.80-5.20) 09/18/18 08:43 Hgb 10.7 g/dL (11.0-16.0) L 09/18/18 08:43 Hct 34.0 % (34.0-47.0) 09/18/18 08:43 MCV 78.1 fL (81.0-99.0) L 09/18/18 08:43 MCH 24.6 pg (27.0-31.0) L 09/18/18 08:43 MCHC 31.5 g/dL (33.0-37.0) L 09/18/18 08:43 RDW 16.5 % (11.5-14.5) H 09/18/18 08:43 Plt Count 298 K/uL (130-400) 09/18/18 08:43 MPV 9.3 fL (7.2-11.7) 09/18/18 08:43 Neut % (Auto) 52.3 % (50.0-75.0) 09/18/18 08:43 Lymph % (Auto) 33.3 % (20.0-40.0) 09/18/18 08:43 Taney % (Auto) 10.9 % (0.0-10.0) H 09/18/18 08:43 Eos % (Auto) 3.1 % (0.0-4.0) 09/18/18 08:43 Baso % (Auto) 0.4 % (0.0-2.0) 09/18/18 08:43 Neut # (Auto) 3.2 K/uL (1.8-7.0) 09/18/18 08:43 Lymph # (Auto) 2.0 K/uL (1.0-4.3) 09/18/18 08:43 Taney # (Auto) 0.7 K/uL (0.0-0.8) 09/18/18 08:43 Eos # (Auto) 0.2 K/uL (0.0-0.7) 09/18/18 08:43 Baso # (Auto) 0.0 K/uL (0.0-0.2) 09/18/18 08:43 PT 11.5 SECONDS (9.7-12.2) 09/16/18 14:11 INR 1.1 09/16/18 14:11 APTT 32 SECONDS (21-34) 09/16/18 14:11 D-Dimer, Quantitative 356 ng/mlDDU (0-243) H 09/16/18 14:11 Sodium 138 mmol/L (132-148) 09/18/18 08:43 Potassium 3.4 mmol/L (3.6-5.2) L 09/18/18 08:43 Chloride 102 mmol/L (98-107) 09/18/18 08:43 Carbon Dioxide 28 mmol/L (22-30) 09/18/18 08:43 Anion Gap 11 (10-20) 09/18/18 08:43 BUN 16 mg/dL (7-17) 09/18/18 08:43 Creatinine 0.8 mg/dL (0.7-1.2) 09/18/18 08:43 Est GFR ( Amer) > 60 09/18/18 08:43 Est GFR (Non-Af Amer) > 60 09/18/18 08:43 POC Glucose (mg/dL) 171 mg/dL (65-110) H 09/20/18 12:20 Random Glucose 158 mg/dL (65-105) H D 09/18/18 08:43 Calcium 9.3 mg/dl (8.6-10.4) 09/18/18 08:43 Phosphorus 3.7 mg/dL (2.5-4.5) 09/18/18 08:43 Magnesium 1.8 mg/dL (1.6-2.3) 09/18/18 08:43 Total Bilirubin 0.8 mg/dL (0.2-1.3) 09/18/18 08:43 AST 39 U/L (14-36) H 09/18/18 08:43 ALT 20 U/L (9-52) 09/18/18 08:43 Alkaline Phosphatase 93 U/L (38-126) 09/18/18 08:43 Total Creatine Kinase 45 U/L (30-135) 09/17/18 11:51 CK-MB (Mass) 0.94 ng/mL (0.0-3.38) 09/17/18 11:51 Troponin I < 0.0120 ng/mL (0.00-0.120) 09/17/18 11:51 NT-Pro-B Natriuret Pep 152 pg/mL (0-900) 09/16/18 14:11 Total Protein 6.6 g/dL (6.3-8.3) 09/18/18 08:43 Albumin 3.8 g/dL (3.5-5.0) 09/18/18 08:43 Globulin 2.8 gm/dL (2.2-3.9) 09/18/18 08:43 Albumin/Globulin Ratio 1.4 (1.0-2.1) 09/18/18 08:43 - Hospital Course Hospital Course: Chief complaint: Chest pain HPI: 68-year-old female with a history of congestive heart failure, COPD, hypertension, hypercholesterolemia, CAD, status post CABG, she was recently hospitalized less than a month ago with left-sided chest pain, developed severe herpes zoster, treated intravenously with the antiviral treatment. Patient was sent home following that, but since then she was complaining of increasing pain over the left side of the chest, radiating to the left axillary, as well as in the back. Patient was not able to tolerate the pain, she was seen by pain specialist in [place], and a topical medication and also oral pain medications, including tramadol, Lyrica, but in spite of that there was no improvement in the pain, she was having increasingly worsening symptoms, she called the ambulance and she was brought to the emergency room. On her way to the hospital, patient had an episode of fall from the stretcher, and she fell on her back, and is now she is having more pain in the lower back. But the patient is able to stand up, she is able to walk to the bed and also to the bathroom without any problem, now the current main problem is the ongoing pain over the left side of the chest and radiating to the left upper extremity. Patient is also feeling somewhat nauseated. No headache. Denies any other major systemic symptoms Past medical history: Patient has osteoarthritis, lumbosacral disc disease, history of epidural injections multiple times in the past, hypertension, hypercholesterolemia, obstructive sleep apnea, CAD, status post CABG. Patient is allergic to sulfa. Nonalcoholic non-smoker Medications reviewed Family history noncontributory Review of system noted from the chart. Complaining of ongoing pain in the back especially in the lower back as well as left side of the chest. Poor appetite. Pain medicine is not helping her much. Complaining of some constipation. Bilateral leg swelling also noted. On examination: Vital signs otherwise stable, but elevated with systolic blood pressure slightly noted. Good air entry Regular heart sounds noted Nontender abdomen. Edema bilaterally 2+ noted Patient's labs reviewed CMP, CBC nonspecific. Elevated d-dimer level noted urinalysis none done today patient had x-ray of the chest negative. Assessment and recommendation: Patient is a 68-year-old female with a history of CAD, hypertension, hypercholesterolemia, diabetes, chronic lower back pain, admitted now with possibly intractable pain secondary to postherpetic neuralgia.fall She also had a fall, and may be aggravating more pain now. I educated the patient regarding the ongoing pain and pain control. Lyrica, tramadol, and also morphine as needed is being given. Explained to her about the pain control. Cardiology, neurology evaluation recommended. DVT study and will follow the patient Course in the hospital: Patient was seen by neurologist. The medication was adjusted. Currently patient is stable. Physical therapy started. But patient still continues to have a more pain. I have recommended physical rehabilitation. Patient will be discharged to rehabitation today. Follow up as an outpatient. Medications reviewed Final diagnosis: Intractable pain. Herpetic neuralgia. CAD, diabetes, hypertension, diabetic neuropathy. CAD, status post a coronary her to bypass grafting. Discharge Plan - Follow Up Plan Condition: GOOD Disposition: HOME/ ROUTINE Instructions: Heart Failure, Adult (DC), Chest Pain (DC) Referrals: Frank Llamas MD [Staff Provider] - Rodolfo Keller MD [Staff Provider] - Niik Martinez MD [Staff Provider] -
--- NOTE | 2018-09-20 15:10 | CP.PCM.PN ---
Subjective - Date & Time of Evaluation Date of Evaluation: 09/19/18 Time of Evaluation: 15:10 - Subjective Subjective: Patient still having symptoms of pain. Chest pain still noted. The pain is in the back, left axillary area, as well as in the anterior chest. She is feeling more sleepy. I told the patient that the Lyrica probably making her sleepy also. On examination: Vital signs is stable. Chest good air entry. Heart sounds are regular. Pedal edema, negative. I spoke to the son in detail. Explained the patient's condition. Patient probably will need to go to rehabilitation. Assessment and recommendation: 68-year-old female with history of hypertension, CAD, hypercholesterolemia, admitted recently with a herpetic neuralgia, and associate with the neurologic pain. Seen by neurologist. CAT scan of the thoracic spine, negative, recommended baclofen. Clinical stable. She will be going to rehabilitation Objective - Vital Signs/Intake and Output Vital Signs (last 24 hours): Temp Pulse Resp BP Pulse Ox 98.1 F 65 20 159/68 H 97 09/20/18 08:22 09/20/18 08:22 09/20/18 08:22 09/20/18 08:22 09/20/18 08:22 - Medications Medications: Current Medications Albuterol/Ipratropium (Duoneb 3 Mg/0.5 Mg (3 Ml) Ud) 3 ml INH RQ6 [facility] Last Admin: 09/20/18 08:00 Dose: Not Given Alprazolam (Xanax) 0.25 mg PO Q12 PRN PRN Reason: Anxiety Stop: 09/23/18 22:01 Last Admin: 09/16/18 21:07 Dose: 0.25 mg Aspirin (Ecotrin) 81 mg PO DAILY [facility] Last Admin: 09/20/18 11:35 Dose: 81 mg Baclofen (Lioresal) 10 mg PO HS [facility] Last Admin: 09/19/18 21:22 Dose: 10 mg Diltiazem HCl (Cardizem Cd) 180 mg PO DAILY [facility] Last Admin: 09/20/18 11:34 Dose: 180 mg Docusate Sodium (Colace) 100 mg PO TID [facility] Last Admin: 09/20/18 14:12 Dose: 100 mg Enoxaparin Sodium (Lovenox) 40 mg SC DAILY [facility] Last Admin: 09/20/18 11:36 Dose: 40 mg Gabapentin (Neurontin) 400 mg PO TID [facility] Last Admin: 09/20/18 14:11 Dose: 400 mg Insulin Glargine (Lantus) 20 unit SC HS [facility] Last Admin: 09/19/18 21:21 Dose: 20 unit Insulin Human Regular (Novolin R) 0 unit SC ACHS [facility]; Protocol Last Admin: 09/20/18 12:57 Dose: 1 unit Lidocaine (Lidoderm) 1 ea TD DAILY [facility] Last Admin: 09/20/18 11:36 Dose: 1 ea Losartan Potassium (Cozaar) 50 mg PO DAILY [facility] Last Admin: 09/20/18 11:42 Dose: 50 mg Metoprolol Tartrate (Lopressor) 50 mg PO Q12 [facility] Last Admin: 09/20/18 11:42 Dose: 50 mg Pantoprazole Sodium (Protonix Ec Tab) 40 mg PO DAILY [facility] Last Admin: 09/20/18 11:34 Dose: 40 mg Rosuvastatin Calcium (Crestor) 10 mg PO QPM [facility] Last Admin: 09/19/18 18:23 Dose: 10 mg Tramadol HCl (Ultram) 25 mg PO Q8 PRN PRN Reason: Pain, moderate (4-7) Last Admin: 09/20/18 06:28 Dose: 25 mg Triamcinolone Acetonide (Kenalog 0.1% Cream) 1 appl TOP BID [facility] Last Admin: 09/20/18 11:36 Dose: 1 appl - Labs Labs: 09/18/18 08:43 09/18/18 08:43 PT 11.5 SECONDS (9.7-12.2) 09/16/18 14:11 INR 1.1 09/16/18 14:11 APTT 32 SECONDS (21-34) 09/16/18 14:11
[2018-09-20 16:06] VITALS: BP 120/80; TEMP 98; O2SAT 95
[2018-09-20 18:12] VITALS: PULSE 77
== END 2018-09-20 18:37 | DRG 74 ==
LOC: C.ER 13:22 → C.9E 15:54 → C.6T 16:35 → OBSVTOIN 09-17 15:38
PROVIDERS: ADMIT Internal Medicine; ATTEND Internal Medicine
DX: B02.29 Other postherpetic nervous system involvement (principal); E11.40 Type 2 diabetes mellitus with diabetic neuropathy, unspecified; M79.18 Myalgia, other site; I11.0 Hypertensive heart disease with heart failure; I50.9 Heart failure, unspecified; K59.00 Constipation, unspecified; Z95.1 Presence of aortocoronary bypass graft; G47.33 Obstructive sleep apnea (adult) (pediatric); F41.9 Anxiety disorder, unspecified; E78.00 Pure hypercholesterolemia, unspecified; J44.9 Chronic obstructive pulmonary disease, unspecified; Z88.2 Allergy status to sulfonamides; E66.9 Obesity, unspecified; I25.10 Atherosclerotic heart disease of native coronary artery without angina pectoris; I44.7 Left bundle-branch block, unspecified; R07.89 Other chest pain; Z79.4 Long term (current) use of insulin